=== PATIENT | female | born 1935 | race Caucasian/White ===

== ENCOUNTER 2024-04-04 13:19 | Observation (INO) | payer MEDICARE, SELFPAY ==
[2024-04-04] VITALS (18 sets, daily range): BP systolic 126–149; BP diastolic 67–108; PULSE 59–121; RESP 13–31; TEMP 36.1–36.4; O2SAT 77–98; BMI 19.1
--- NOTE | ~2024-04-04 | CT_ITS ---
EXAMINATION: CT abdomen pelvis wo con DATE: 04/04/2024 14:46 INDICATION: Constipation. Abdominal pain. TECHNIQUE: Computed tomography (CT) of the abdomen and pelvis was performed without intravenous contr ast. Automated exposure control and iterative reconstruction technique were employed. The dose-length product was 481.53 mGy-cm. COMPARISON: None. FINDINGS: The visualized portions of the lung bases demonstrate small pleural effusions and dependent atelectasis. A calcified left lung nodule is consistent with old granulomatous disease. Cardiomegaly is noted. There are coronary artery calcifications. No pericardial effusion. There is mild intrahepa tic biliary duct dilatation, likely secondary to cholecystectomy. Calcifications in the spleen are co nsistent with old granulomatous disease. The pancreas and left adrenal gland are normal. There are dy strophic calcifications of right adrenal gland. Right kidney is normal. There is mild atrophy of left kidney. There is a large volume of stool in the colon with distention of the rectosigmoid. There is wall thickening of the rectosigmoid, consistent with stercoral colitis. The small bowel is normal in caliber. There is calcified atherosclerosis of the aorta and many of the other arteries. There are no pathologically enlarged lymph nodes. There is no free intraperitoneal fluid. There is a total right hip arthroplasty. There are old healed fractures of right superior and inferior pubic rami. There is thoracolumbar levoscoliosis and severe spondylosis. There are changes of posterior fusion procedure a t L4-L5. IMPRESSION: 1. Stercoral colitis. 2. Small pleural effusions. Reviewed, dictated and finalized at location E.
--- NOTE | ~2024-04-04 | XR_ITS ---
EXAMINATION: XR abdomen/kub 1V DATE: 04/06/2024 05:55 INDICATION: Fecal impaction. TECHNIQUE: A supine view of the abdomen on 2 radiographs was obtained. COMPARISON: Abdomen radiograph 05/06/2024, CT abdomen pelvis/ FINDINGS: Stool distends the rectosigmoid. The small bowel is normal in caliber. Surgical clips in th e right upper quadrant are likely from cholecystectomy. There are changes of posterior fusion procedu re in lumbar spine. There is a total right hip arthroplasty. IMPRESSION: 1. Stool distends the rectosigmoid. Reviewed, dictated and finalized at location A.
--- NOTE | ~2024-04-04 | XR_ITS ---
EXAMINATION: XR abdomen/kub 1V DATE: 04/07/2024 10:19 INDICATION: Fecal impaction. TECHNIQUE: A supine view of the abdomen on 2 radiographs was obtained. COMPARISON: Abdomen radiograph 04/06/2024, 04/04/2024 FINDINGS: There are no dilated loops of bowel. There is a small volume of stool in the colon. Surgica l clips in the right upper quadrant are likely from cholecystectomy. There are changes of posterior f usion procedure in lumbar spine. There is a total right hip arthroplasty. IMPRESSION: 1. Nonobstructive bowel gas pattern. Reviewed, dictated and finalized at location A.
--- NOTE | ~2024-04-04 | XR_ITS ---
EXAM: XR abdomen/kub 1V DATE: 04/05/2024 14:52 HISTORY: constipation . COMPARISON: CT abdomen pelvis 04/04/2024. FINDINGS: Clear lung bases. Cholecystectomy clips. The rectum is distended to 7.5 cm by formed stool . Otherwise normal bowel gas pattern. No organomegaly. No abnormal abdominal calcification. Severe sc oliosis. Multilevel thoracic and lumbar degenerative disc disease. Moderate left hip osteoarthritis. Osteopenia. Partially visualized lumbar fusion hardware and right hip arthroplasty hardware IMPRESSION: Fecal impaction. Reviewed, dictated and finalized at location K. IMPRESSION: Fecal impaction.
--- NOTE | 2024-04-04 14:24 | ECG_ITS ---
SEE SCANNED COPY FOR CONFIRMED REPORT MTDD
[2024-04-04 15:24] LABS: Basophils Absolute Auto 0.1 K/mm3 (0.0-0.1); Basophils Percent Auto 0.7 % (0.2-1.2); Eosinophils Absolute Auto 0.1 K/mm3 (0-0.3); Hematocrit 37.7 % (37.0-47.0); Hemoglobin 11.9 g/dL (12.0-15.0); Immature Granulocyte Absolute 0.02 K/mm3 (0.00-0.031); Immature Granulocyte Percent A 0.3 % (0-0.5); Lymphocytes Absolute Auto 1.27 K/mm3 (0.9-3.2); Lymphocytes Percent Auto 18.6 % (18.3-44.2); Mean Corpuscular HGB Conc 31.6 g/dl (32-36); Mean Corpuscular Hemoglobin 33.7 pg (26-34); Mean Corpuscular Volume 106.8 fl (80-100); Mean Platelet Volume 10.8 fl (7.4-10.4); Monocytes Absolute Auto 0.5 K/mm3 (0.1-0.6); Monocytes Percent Auto 7.7 % (2.6-8.5); Neutrophils Absolute Auto 4.9 K/mm3 (1.3-6.7); Neutrophils Percent Auto 71.7 % (45.5-73.1); Platelet Count Result 245 k/mm3 (150-375); Red Blood Count 3.53 M/mm3 (4.2-5.4); Red Cell Distribution Width 14.6 % (11.5-14.5); White Blood Count 6.8 K/mm3 (4.5-10.0)
[2024-04-04 15:39] LABS: Lactic Acid Reflex 2.1 mmol/L (0.7-2.0)
[2024-04-04 15:40] LABS: Alanine Aminotransferase 21 U/L (6-35); Albumin Level 4.1 g/dL (3.5-5.1); Alkaline Phosphatase 60 U/L (38-126); Anion Gap 8 mmol/L (4-12); Aspartate Amino Transferase 39 U/L (14-36); Bilirubin,Total 0.7 mg/dL (0.2-1.3); Blood Urea Nitrogen 31 mg/dL (7-17); Calcium 9.3 mg/dL (8.4-10.2); Carbon Dioxide 25 mmol/L (22-30); Chloride 101 mmol/L (98-107); Estimated CRCL calculation 22 ml/min; Estimated Glomerular Filt Rate 36; Glucose 104 mg/dL (65-110); Lipase 57 U/L (23-300); Platelet Estimate Adequate (Adequate); Poikilocytosis 1+; Potassium 4.7 mmol/L (3.4-5.0); Sodium 134 mmol/L (137-145)
[2024-04-04 15:41] LABS: Ovalocytes 1+
[2024-04-04 15:42] LABS: Schistocytes None Seen
[2024-04-04 16:25] LABS: Appearance Urine Clear (Clear); Bilirubin Urine Negative (Negative); Blood Urine Negative (Negative); Color Urine Yellow (Yellow); Glucose Urine UA Negative (Negative); Ketones Urine Negative (Negative); Leukocyte Esterase Ur Negative LEU/UL (Negative); Nitrate Urine Negative (Negative); Protein Urine Negative (Negative); Specific Grav Ur 1.022 (1.001-1.035); Urobilinogen Urine 0.2 mg/dL (<2.0)
[2024-04-04 16:52] LABS: Add Urine Microscopic? NO
[2024-04-04] MEDS: LACTATED RINGERS 1,000 ML 999 ML IV CONT (17:13)
--- NOTE | 2024-04-04 18:16 | ED.ABDPAIN ---
HPI - Abdominal Pain General Chief Complaint: Abdominal Pain Stated Complaint: abdominal pain, constipation Time Seen by Provider: 04/04/24 14:22 History of Present Illness HPI narrative: Patient having constipation for the last week, doctor has tried laxatives without much improvement, patient was having a lot of abdominal pain so she brought her in today. Related Data Allergies Allergy/AdvReac Type Severity Reaction Status Date / Time iodine Allergy Unknown Verified 03/27/24 13:27 Penicillins Allergy Unknown Verified 03/27/24 13:27 contrast dye Allergy Other Uncoded 03/27/24 13:27 Review of Systems Review of Systems: All systems reviewed & are unremarkable except as noted in HPI and below PMFSH Past Medical History Medical History (Updated 04/04/24 @ 18:21 by Maria De Jesus Danielson MD) Atrial fibrillation CAD (coronary artery disease) Heart failure with preserved ejection fraction HTN (hypertension) Hx of completed stroke Hypothyroidism Inflammatory arthritis Thyroid disorder Family History Family History Father Hypertension Cerebrovascular accident Mother Hypertension Social History Social History (Updated 01/14/24 @ 14:41 by Nancy Vela MA) Smoking status: Unknown if ever smoked Alcohol intake: unknown Substance use: never Do You Feel Safe in your Home?: Yes Lack of Transportation: No Lack of Food: Never True Current Housing: I Have Housing Concerned About Future Housing: No Difficulty Paying Gas/Electric Bills: No Difficulty Paying for Meds: No Currently Unemployed: No Education: Master's Degree or Higher Difficulty w/ Childcare or Family Care: No Living arrangements: with family Gender identity (if verbalized by the patient): Female Sexual Orientation (if Verbalized by the Patient): Straight or Heterosexual Exam Narrative: EXAMINATION OF ORGAN SYSTEMS/BODY AREAS: Constitutional: Vital signs per nursing GENERAL: Smiles at me but winces when I push on her stomach HEAD: Normal with no signs of head trauma. EYES: EOMI, conjunctiva normal ENT: Hearing grossly intact LUNGS: Nonlabored breathing. HEART: [Regular rate and rhythm] ABD: Slightly distended and tender to palpation EXT: Normal range of motion SKIN: [No rashes or lesions.] NEURO: [Alert. No gross focal sensory or strength deficits.] PSYCH: Normal affect Course Vital Signs Vital signs: Vital Signs Temperature 97.0 F L 04/04/24 13:38 Pulse Rate 59 L 04/04/24 13:38 Respiratory Rate 18 04/04/24 13:38 Blood Pressure 132/67 04/04/24 13:38 Pulse Oximetry 95 04/04/24 13:38 Oxygen Delivery Room Air 04/04/24 13:38 Temperature 97.0 F L 04/04/24 13:38 Pulse Rate 59 L 04/04/24 13:38 Respiratory Rate 18 04/04/24 13:38 Blood Pressure 132/67 04/04/24 13:38 Pulse Oximetry 95 04/04/24 13:38 Oxygen Delivery Room Air 04/04/24 13:38 MDM - Abdominal Pain MDM Narrative Medical decision making narrative: Electronic medical record was reviewed. Patient presented to the ED with complaint of [abdominal pain and constipation]. Vitals [were within acceptable limits]. Physical exam revealed [tenderness to palpation of abdomen]. Based on the patient's history and physical exam, my differential includes but is not limited to [constipation, SBO, diverticulitis, appendicitis]. [IV access was established by nursing staff]. CBC, BMP, lipase, LFTs, bilirubin and alk phos were obtained. Labs were pertinent for very minimally elevated lactic acid,. [Decision was made to obtain a CT-abdomen to evaluate for acute abdominal process. CT-abdomen showing stercoral colitis.] I did consult General surgery Dr Fitzpatrick who asked me to start antibiotics (she has allergy to PCN so I ordered ceftriaxone + flagyl) and consult GI, enema is ordered, discussed with Dr. Cheney GI, discussed with hospitalist for admission. Discussed with daughter at
[2024-04-04 18:22] LABS: Reflex Lactic Acid Yes or No Add Lactic
--- NOTE | 2024-04-04 18:25 | PC.NURSE ---
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 Pt's daughter states she tried to give her them at home without success, but daughter in agreement with administration. Pt tolerated fleet enema fairly well, however no rectal tone present and came right back out with scant liquid stool. Pt to go to admission room at this time.
--- NOTE | 2024-04-04 18:35 | ADMGEN ---
This patient, Esperanza Mark, was admitted to Medical Room 345-01. Patient/family oriented to hospital policies and general routines including ID bracelet, bed and alarms, visiting hours, pain management, procedures, bathroom and other care routines, personal items, smoking policy, room service/diet, and visiting hours. Information on how to activate the Rapid Response Team has been discussed. Patient/Family are encouraged to report perceived risks to care and to ask questions if they do not understand what they are told or what they should do.
--- NOTE | 2024-04-04 20:13 | PM.IMHP ---
H&P: HPI History of Present Illness Date/Time: 04/04/24 22:20 Chief Complaint: Constipation Narrative: 88 y/o F presents here with constipation with PMH of AFib, dementia, CAD, HF w/preserved EF, CKD, HTN, CVA (nonverbal), hypothyroidism, and rheumatoid arthritis. Patient presents here for further evaluation of constipation. patient unable to contribute to HPI due to neuro limitations secondary to CVA. Per chart review, daughter reported that patient has been having bowel issues for the past week and half. Patient initially had loose stools but has since transitioned to constipation. Trialed laxative at home without results. Per daughter, has appeared very uncomfortable over the last few days. Patient able to nod that she does have abdominal pain, grimacing with palpation to her abdomen, and guarding on exam. Per chart review, only previous abdominal surgery was a hysterectomy. Initial VS at presentation: 97? F, HR 59, RR 18, 132/67, and 95% on RA. ED workup showed: No leukocytosis, very mild anemia, sodium 134, creatinine 1.4 and GFR 36 (no previous for comparison, history of CKD), UA is unremarkable. CT of the abdomen pelvis showed stercoral colitis and small pleural effusions. Review of Systems Review of Systems: ROS unobtainable: Yes unobtainable due to mental status PMFSH Past Medical History Medical History Atrial fibrillation CAD (coronary artery disease) Chronic pain Dementia Dyslipidemia Eczematous dermatitis Heart failure with preserved ejection fraction HTN (hypertension) Hx of completed stroke Hypothyroidism Inflammatory arthritis Osteoarthritis Stage 3b chronic kidney disease Surgical History Surgical History History of hip replacement History of hysterectomy History of spinal surgery Family History Family History Father Hypertension Cerebrovascular accident Mother Hypertension Social History Social History Smoking status: Unknown if ever smoked Alcohol intake: unknown Substance use: never Substance use type: does not use Do You Feel Safe in your Home?: Yes Lack of Transportation: No Lack of Food: Never True Current Housing: I Have Housing Concerned About Future Housing: No Difficulty Paying Gas/Electric Bills: No Difficulty Paying for Meds: No Currently Unemployed: No Education: Master's Degree or Higher Difficulty w/ Childcare or Family Care: No Living arrangements: with family Gender identity (if verbalized by the patient): Female Sexual Orientation (if Verbalized by the Patient): Straight or Heterosexual Spiritual care concerns: No Meds Home Medications and Allergies Home Medications Medication Instructions Recorded Confirmed Type metoprolol tartrate 75 mg tablet 75 mg PO BID #180 tabs 10/05/23 03/27/24 Rx levothyroxine 150 mcg tablet 150 mcg PO DAILY #90 tabs 11/01/23 03/27/24 Rx lisinopril 5 mg tablet 5 mg PO DAILY #90 tabs 11/15/23 03/27/24 Rx trazodone 100 mg tablet 100 mg PO QHS #90 tabs 11/15/23 03/27/24 Rx triamcinolone acetonide 0.1 % 1 applic topical BID #453.6 grams 11/15/23 03/27/24 Rx topical cream apixaban 2.5 mg tablet (Eliquis) See Rx Instructions .Route 02/11/24 03/27/24 Rx .COMPLEX #180 tabs atorvastatin 40 mg tablet See Rx Instructions .Route 02/28/24 03/27/24 Rx .COMPLEX #90 tabs furosemide 20 mg tablet 20 mg PO QAM #90 tabs 03/15/24 03/27/24 Rx hydrocodone 10 mg-acetaminophen 1 tablet PO QID PRN pain #120 tabs 03/25/24 03/27/24 Rx 325 mg tablet Allergies Allergy/AdvReac Type Severity Reaction Status Date / Time iodine Allergy Unknown Verified 03/27/24 13:27 Penicillins Allergy Unknown Verified 03/27/24 13:27 contrast dye Allergy Other Uncoded 03/27/24 13:27 Vital Signs
[2024-04-04 20:22] LABS: Lactic Acid 1.6 mmol/L (0.7-2.0)
[2024-04-05] MEDS: metroNIDAZOLE 500 MG/ISO 100ML 500 MG/100 ML BAG 100 MG IVPB ×2 (05:23→13:05)
[2024-04-05 06:00] VITALS: BP 138/83; PULSE 74; RESP 16; TEMP 36.2; O2SAT 95
[2024-04-05 06:26] LABS: Basophils Absolute Auto 0.1 K/mm3 (0.0-0.1); Basophils Percent Auto 0.9 % (0.2-1.2); Eosinophils Absolute Auto 0.1 K/mm3 (0-0.3); Hematocrit 38.5 % (37.0-47.0); Hemoglobin 12.3 g/dL (12.0-15.0); Immature Granulocyte Absolute 0.02 K/mm3 (0.00-0.031); Immature Granulocyte Percent A 0.3 % (0-0.5); Lymphocytes Absolute Auto 2.04 K/mm3 (0.9-3.2); Lymphocytes Percent Auto 26.1 % (18.3-44.2); Mean Corpuscular HGB Conc 31.9 g/dl (32-36); Mean Corpuscular Volume 106.4 fl (80-100); Mean Platelet Volume 10.7 fl (7.4-10.4); Monocytes Absolute Auto 0.6 K/mm3 (0.1-0.6); Monocytes Percent Auto 7.7 % (2.6-8.5); Platelet Count Result 259 k/mm3 (150-375); Red Blood Count 3.62 M/mm3 (4.2-5.4); Red Cell Distribution Width 14.6 % (11.5-14.5); White Blood Count 7.8 K/mm3 (4.5-10.0)
[2024-04-05 06:32] LABS: Alanine Aminotransferase 22 U/L (6-35); Alkaline Phosphatase 70 U/L (38-126); Anion Gap 7 mmol/L (4-12); Aspartate Amino Transferase 38 U/L (14-36); Bilirubin,Total 0.8 mg/dL (0.2-1.3); Blood Urea Nitrogen 24 mg/dL (7-17); Calcium 9.6 mg/dL (8.4-10.2); Carbon Dioxide 26 mmol/L (22-30); Chloride 103 mmol/L (98-107); Estimated CRCL calculation 24 ml/min; Estimated Glomerular Filt Rate 42; Glucose 92 mg/dL (65-110); Magnesium 2.1 mg/dL (1.6-2.3); Phosphorus 3.6 mg/dL (2.5-4.5); Potassium 4.4 mmol/L (3.4-5.0); Sodium 136 mmol/L (137-145)
--- NOTE | 2024-04-05 12:03 | PM.IMPN ---
Progress Note: A&P Assessment and Plan (1) Stercoral colitis: Code(s): K52.89 - Other specified noninfective gastroenteritis and colitis Status: Acute Assessment and Plan: 04/04/24: - did not meet SIRS criteria, however lactic is 2.1 -> 1.6. suspect elevation due to dehydration. - CT abd/pelvis: 1. Stercoral colitis. 2. Small pleural effusions. - General Surgery consulted, awaiting recs - GI consulted, awaiting recs - started on ceftriaxone and metronidazole on 04/04 - rehydrated 1L bolus of LR, continue as 75 mL/hr of LR x1L - enema attempted in ED, poor rectal tone. reattempting on floor - trend labs 04/05/24: discontinue Rocephin and Flagyl as there is no clinical need KUB showing fecal impaction, will give another soap suds enema General surgery and GI consulted (2) Stage 3b chronic kidney disease: Code(s): N18.32 - Chronic kidney disease, stage 3b Status: Acute Assessment and Plan: 04/04/24: - creatinine 1.4 - GFR 36 - hx of CKD stage IIIB - trend renal function - trend electrolytes, correct as needed 04/05/24: Creatinine down to 1.2 Continue to trend Will hold off on Lasix and lisinopril for now (3) Heart failure with preserved ejection fraction: Code(s): I50.30 - Unspecified diastolic (congestive) heart failure Status: Acute Assessment and Plan: 04/04/24: - no echo on file - daily weights - monitor I&Os - trend renal function 04/05/24: Obtain echo Strict I&O Will hold off on Lasix due to elevated creatinine Continue metoprolol (4) HTN (hypertension): Code(s): I10 - Essential (primary) hypertension Status: Acute Assessment and Plan: 04/04/24: - chronic, currently 149/99 - awaiting med rec - monitor 04/05/24: Blood pressure ranging 126/108 to 138/83 Continue to hold lisinopril due to creatinine elevation Continue metoprolol (5) CAD (coronary artery disease): Qualifiers: Coronary Disease-Associated Artery/Lesion type: unspecified vessel or lesion type Code(s): I25.10 - Atherosclerotic heart disease of in[place] coronary artery without angina pectoris Status: Acute Assessment and Plan: 04/05/24: Continue atorvastatin (6) Hypothyroidism: Code(s): E03.9 - Hypothyroidism, unspecified Status: Acute Assessment and Plan: 04/05/24: Continue Synthroid Time Spent With Patient Time with patient: Greater than 35 minutes Subjective Date/time seen: 04/05/24 12:04 Interval history: This is an 88-year-old female presented to the hospital on 04/04/2024 with complaints constipation for a week to a week and a half. Workup in the hospital included an abdomen pelvis CT which showed Stercoral colitis and a small pleural effusion. Initial labs showed a normal white blood cell count of 6.8, hemoglobin 11.9, sodium 134, creatinine 1.4, EGFR 36, lactic acid 2.1> 1.6, AST 39, lipase 57. A UA was obtained and was negative for bacteria. Patient was given 1 L of LR and started on Flagyl and Rocephin. GI and General surgery was consulted. She was made NPO status. On examination today patient is alert to voice, lying in the bed. Patient is unable to contribute to her symptoms due to altered mental status at baseline. Labs today showed a sodium of 136, creatinine 1.2, EGFR 42, AST 38, otherwise unremarkable. Currently has had 5 BM's since admission. We did a KUB which still shows fecal impaction that is now to the rectum. I ordered another soap suds enema to assist her. The KUB does not show obstruction or an ileus. Spoke with daughter about bowel prep at home. Review of Systems Review of Systems: All systems reviewed & are unremarkable except as noted in HPI and below ROS unobtainable: Yes unobtainable due to mental status Constitutional: Constitutional: Reports as per HPI and Reports no additional constitutional complaints Eyes: Eyes: Reports as per HPI and Reports no add
[2024-04-05] MEDS: HYDROcodone/acetaminophen (*CRX) 10-325 MG TABLET 1 TAB PO ×2 (12:22→19:00)
[2024-04-05 13:19] VITALS: PULSE 80
[2024-04-05] MEDS: METOPROLOL TARTRATE 25 MG TABLET 75 MG PO (13:19)
[2024-04-05] MEDS: LEVOTHYROXINE SODIUM 150 MCG TABLET PO (13:19)
[2024-04-05] MEDS: ATORVASTATIN 40 MG TABLET PO (13:20)
[2024-04-05 14:00] VITALS: BP 136/96; PULSE 88; RESP 22; TEMP 36.6; O2SAT 96
--- NOTE | 2024-04-05 14:39 | WPDGICN ---
Assessment and Plan Assessment and plan (1) Stercoral colitis: Code(s): K52.89 - Other specified noninfective gastroenteritis and colitis Status: Acute Assessment and Plan: treated medically with enema/laxative GI exam is benign, no pain it is ok to discontinue antibiotics ok to advance diet, if she does ok then ok to discharge with bowel regimen (2) Stage 3b chronic kidney disease: Code(s): N18.32 - Chronic kidney disease, stage 3b Status: Acute Assessment and Plan: stable, ? near baseline (3) Dementia: Code(s): F03.90 - Unspecified dementia, unspecified severity, without behavioral disturbance, psychotic disturbance, mood disturbance, and anxiety Status: Acute (4) HTN (hypertension): Code(s): I10 - Essential (primary) hypertension Status: Acute GI Consult Note Consult date/time: 04/05/24 14:39 Reason for consult: constipation, stercoral colitis HPI: Esperanza Mark is a 88 year old female with past medical history of AFib, dementia, CAD, HF w/preserved EF, CKD stg 3, HTN, CVA (baseline confused). History obtained from records. She was brought here with more constipation than usual. Per history she initially had loose stools but has since transitioned to constipation. Trialed laxative at home without results.? Daughter mentioned that she was uncomfortable over the last few days.? ED workup no leukocytosis, sodium 134, creatinine 1.4, UA is unremarkable.? CT of the abdomen pelvis showed stercoral colitis and small pleural effusions. Given enema/laxatives. She is quite comfortable during exam, she already had loose stools. Review of Systems Review of Systems: ROS unobtainable: Yes unobtainable due to mental status [facility] Past Medical History Medical History (Updated 04/05/24 @ 14:43 by Brandon Serra MD) Atrial fibrillation CAD (coronary artery disease) Chronic pain Dementia Dyslipidemia Eczematous dermatitis Heart failure with preserved ejection fraction HTN (hypertension) Hx of completed stroke Hypothyroidism Inflammatory arthritis Osteoarthritis Stage 3b chronic kidney disease Surgical History Surgical History History of hip replacement History of hysterectomy History of spinal surgery Family History Family History Father Hypertension Cerebrovascular accident Mother Hypertension Social History Social History Smoking status: Unknown if ever smoked Alcohol intake: unknown Substance use: never Substance use type: does not use Do You Feel Safe in your Home?: Yes Lack of Transportation: No Lack of Food: Never True Current Housing: I Have Housing Concerned About Future Housing: No Difficulty Paying Gas/Electric Bills: No Difficulty Paying for Meds: No Currently Unemployed: No Education: Master's Degree or Higher Difficulty w/ Childcare or Family Care: No Living arrangements: with family Gender identity (if verbalized by the patient): Female Sexual Orientation (if Verbalized by the Patient): Straight or Heterosexual Spiritual care concerns: No Meds Home Medications and Allergies Home Medications Medication Instructions Recorded Confirmed Type metoprolol tartrate 75 mg tablet 75 mg PO BID #180 tabs 10/05/23 04/05/24 Rx levothyroxine 150 mcg tablet 150 mcg PO DAILY #90 tabs 11/01/23 04/05/24 Rx lisinopril 5 mg tablet 5 mg PO DAILY #90 tabs 11/15/23 04/05/24 Rx trazodone 100 mg tablet 100 mg PO QHS #90 tabs 11/15/23 04/05/24 Rx furosemide 20 mg tablet 20 mg PO QAM #90 tabs 03/15/24 04/05/24 Rx hydrocodone 10 mg-acetaminophen 1 tablet PO QID PRN pain #120 tabs 03/25/24 04/05/24 Rx 325 mg tablet apixaban 2.5 mg tablet (Eliquis) 2.5 mg PO BID 04/05/24 04/05/24 History atorvastatin 40 mg tablet 40 mg PO DAILY 04/05/2404/05
--- NOTE | 2024-04-05 14:53 | PM.DS ---
DS: Admitting Diagnosis Discharge Date 04/05/24 Admitting Diagnosis Stercoral colitis Stage IIIB chronic kidney disease Heart failure with preserved ejection fraction Hypertension DS: Summary Hospital Course Reason for hospitalization: Stercoral colitis Stage IIIB chronic kidney disease Heart failure with preserved ejection fraction Hypertension Hospital Course: This is an 88-year-old female presented to the hospital on 04/04/2024 with complaints constipation for a week to a week and a half.? Workup in the hospital included an abdomen pelvis CT which showed Stercoral colitis and a small pleural effusion.? Initial labs showed a normal white blood cell count of 6.8, hemoglobin 11.9, sodium 134, creatinine 1.4, EGFR 36, lactic acid 2.1> 1.6, AST 39, lipase 57.? A UA was obtained and was negative for bacteria.? Patient was given 1 L of LR and started on Flagyl and Rocephin.? GI and General surgery was consulted.? She was made NPO status. On examination today patient is alert to voice, lying in the bed. Patient is unable to contribute to her symptoms due to altered mental status at baseline. Labs today showed a sodium of 136, creatinine 1.2, EGFR 42, AST 38, otherwise unremarkable. Currently has had 5 BM's since admission. Spoke with daughter about plan of care and she agrees with discharge planning. Patient will need to take MiraLax daily with full glass of water and continue stool softener. Patient is stable for discharge at this time. Final diagnosis: Stercoral colitis without obstruction Status at Discharge Cognitive/behavioral status at discharge: Alert to voice oriented to self Functional status at discharge: wheelchair bound Overall status at discharge: patient is progressing back to baseline Time Spent with Patient Time attestation: Total time spent providing and/or coordinating discharge services: Time spent: Greater than 30 minutes Exam Narrative: General: In no acute distress, well nourished Head: atraumatic, no encephalopathy Eyes: EOMI, PERRLA, sclera clear ENT: moist mucous membranes, nasal passages clear Neck: supple, no JVD, no adenopathy, trachea midline Cardiac: Normal S1 and S2. No murmur, gallops or friction rubs, peripheral pulses intact. Respiratory: Lungs clear to auscultation, no adventitious lung sounds, currently on room air Gastrointestinal: soft, non-distended, non-tender, normoactive bowel sounds. : voiding without difficulty. Extremities: moves all extremities well, no edema Skin: clean, dry, intact. No wounds or lesions. Neuro: Alert to voice and oriented to self, cranial nerves intact, no neuro deficits. Psych: normal mood, normal affect, interactive DS: Data Data Completed and Pending Completed studies during hospitalization: CT of the abdomen pelvis Pending studies at discharge: None Labs on day of discharge: Labs from last 24 hours 04/05/24 04/04/24 04/04/24 06:05 20:00 15:37 WBC 7.8 RBC 3.62 L Hgb 12.3 Hct 38.5 MCV 106.4 H MCH 34.0 MCHC 31.9 L RDW 14.6 H Plt Count 259 MPV 10.7 H Immature Gran % (Auto) 0.3 Neut % (Auto) 64.0 Lymph % (Auto) 26.1 Forrest % (Auto) 7.7 Eos % (Auto) 1.0 Baso % (Auto) 0.9 Lymph # (Auto) 2.04 Forrest # (Auto) 0.6 Eos # (Auto) 0.1 Baso # (Auto) 0.1 Abs Immat Gran (auto) 0.02 Absolute Neuts (auto) 5.0 Absolute Nucleated RBC 0.000 Nucleated RBC % 0.0 Platelet Estimate Poikilocytosis Ovalocytes Schistocytes Sodium 136 L Potassium 4.4 Chloride 103 Carbon Dioxide 26 Anion Gap 7 BUN 24 H Creatinine 1.20 H Estim Creat Clear Calc 24 Estimated GFR 42 L Glucose 92 Lactic Acid 1.6 Calcium 9.6 Phosphorus 3.6 Magnesium 2.1 Total Bilirubin 0.8 AST 38 H ALT 22 Alkaline Phosphatase 70 Total Protein 7.0 Albumin 4.0 Lipase Urine Color Yellow Urine Appearance Clear Urine pH 5.0 Ur Specific Grav
--- NOTE | 2024-04-05 15:32 | WPDCN ---
Assessment and Plan Assessment and plan (1) Stercoral colitis: Code(s): K52.89 - Other specified noninfective gastroenteritis and colitis Status: Acute Assessment and Plan: Patient appeared to be obstipated and had a mild case of stercoral colitis. She has resolved the obstipation now with enemas. She has had multiple bowel movements now and has no abdominal pain whatsoever. White blood cell count remains normal. Would recommend that the patient be placed on a regular stool regimen to include good hydration, stool softeners, increase fiber intake, and MiraLax or some other laxative as needed. No need for surgical intervention. HPI Data of Consult Date/Time: 04/05/24 15:32 Requesting Physician: Macey Gan MD Primary Care Provider: Rhianna Duckworth APRN Consult Narrative Reason for consult: Abdominal pain and abnormal CT scan showing stercoral colitis Narrative: Esperanza Mark is a 88 year old female who uses chronic pain medications home who came to the emergency room having a lower abdominal pain. Seems to have been obstipated for quite some time. White blood count normal. He can oppose showed large stool ball and information of the colon suggestive of stercoral colitis. No free air seen. Evidence of diverticulitis. Since last evening the patient has had some enemas and has been having multiple bowel movements. She now has no abdominal pain or pelvic pain. White blood count remains normal. She has had multiple bowel movements now. Diet has been advanced. Review of Systems Review of Systems: The remainder of the review of systems to include constitutional, HEENT, cardiovascular, respiratory, GI, , integumentary, musculoskeletal, endocrine, immunologic, hematologic, psychiatric, and neurologic are all negative except for which is mentioned above in the HPI. [facility] Past Medical History Medical History Atrial fibrillation CAD (coronary artery disease) Chronic pain Dementia Dyslipidemia Eczematous dermatitis Heart failure with preserved ejection fraction HTN (hypertension) Hx of completed stroke Hypothyroidism Inflammatory arthritis Osteoarthritis Stage 3b chronic kidney disease Surgical History Surgical History History of hip replacement History of hysterectomy History of spinal surgery Family History Family History Father Hypertension Cerebrovascular accident Mother Hypertension Social History Social History Smoking status: Unknown if ever smoked Alcohol intake: unknown Substance use: never Substance use type: does not use Do You Feel Safe in your Home?: Yes Lack of Transportation: No Lack of Food: Never True Current Housing: I Have Housing Concerned About Future Housing: No Difficulty Paying Gas/Electric Bills: No Difficulty Paying for Meds: No Currently Unemployed: No Education: Master's Degree or Higher Difficulty w/ Childcare or Family Care: No Living arrangements: with family Gender identity (if verbalized by the patient): Female Sexual Orientation (if Verbalized by the Patient): Straight or Heterosexual Spiritual care concerns: No Meds Home Medications and Allergies Home Medications Medication Instructions Recorded Confirmed Type metoprolol tartrate 75 mg tablet 75 mg PO BID #180 tabs 10/05/23 04/05/24 Rx levothyroxine 150 mcg tablet 150 mcg PO DAILY #90 tabs 11/01/23 04/05/24 Rx lisinopril 5 mg tablet 5 mg PO DAILY #90 tabs 11/15/23 04/05/24 Rx trazodone 100 mg tablet 100 mg PO QHS #90 tabs 11/15/23 04/05/24 Rx furosemide 20 mg tablet 20 mg PO QAM #90 tabs 03/15/24 04/05/24 Rx hydrocodone 10 mg-acetaminophen 1 tablet PO QID PRN pain #120 tabs 03/25/24 04/05/24 Rx 325 mg tablet apixaban 2.5 mg table
[2024-04-05] MEDS: MAGNESIUM CITRATE 300 ML BTL 150 ML PO (18:51)
[2024-04-05 22:00] VITALS: BP 130/96; PULSE 120; RESP 21; TEMP 36.3; O2SAT 100
[2024-04-05] MEDS: traZODone HCL 50 MG TABLET 100 MG PO (22:01)
[2024-04-06] MEDS: HYDROcodone/acetaminophen (*CRX) 10-325 MG TABLET 1 TAB PO (02:35)
[2024-04-06] MEDS: LEVOTHYROXINE SODIUM 150 MCG TABLET PO (05:47)
[2024-04-06 06:00] VITALS: BP 162/96; PULSE 74; RESP 16; TEMP 36.2; O2SAT 94
[2024-04-06 06:06] LABS: Basophils Absolute Auto 0.1 K/mm3 (0.0-0.1); Basophils Percent Auto 0.8 % (0.2-1.2); Eosinophils Absolute Auto 0.1 K/mm3 (0-0.3); Eosinophils Percent Auto 0.5 % (0-4.4); Hematocrit 36.2 % (37.0-47.0); Hemoglobin 11.5 g/dL (12.0-15.0); Immature Granulocyte Absolute 0.05 K/mm3 (0.00-0.031); Immature Granulocyte Percent A 0.5 % (0-0.5); Lymphocytes Absolute Auto 1.76 K/mm3 (0.9-3.2); Mean Corpuscular HGB Conc 31.8 g/dl (32-36); Mean Corpuscular Hemoglobin 33.4 pg (26-34); Mean Corpuscular Volume 105.2 fl (80-100); Monocytes Absolute Auto 0.7 K/mm3 (0.1-0.6); Neutrophils Absolute Auto 7.2 K/mm3 (1.3-6.7); Neutrophils Percent Auto 73.2 % (45.5-73.1); Platelet Count Result 254 k/mm3 (150-375); Red Blood Count 3.44 M/mm3 (4.2-5.4); Red Cell Distribution Width 14.7 % (11.5-14.5); White Blood Count 9.8 K/mm3 (4.5-10.0)
[2024-04-06 06:31] LABS: Alanine Aminotransferase 22 U/L (6-35); Albumin Level 3.9 g/dL (3.5-5.1); Alkaline Phosphatase 74 U/L (38-126); Anion Gap 8 mmol/L (4-12); Aspartate Amino Transferase 42 U/L (14-36); Bilirubin,Total 1.1 mg/dL (0.2-1.3); Blood Urea Nitrogen 24 mg/dL (7-17); Calcium 9.4 mg/dL (8.4-10.2); Carbon Dioxide 26 mmol/L (22-30); Chloride 101 mmol/L (98-107); Estimated CRCL calculation 27 ml/min; Estimated Glomerular Filt Rate 47; Glucose 108 mg/dL (65-110); Potassium 3.5 mmol/L (3.4-5.0); Sodium 135 mmol/L (137-145)
[2024-04-06 06:49] LABS: Platelet Estimate Adequate (Adequate)
[2024-04-06 06:50] LABS: Anisocytosis 1+; Ovalocytes 1+; Schistocytes None Seen
--- NOTE | 2024-04-06 08:34 | P.PNIM_ITS ---
Progress Note: A&P Assessment and Plan (1) Stercoral colitis: Code(s): K52.89 - Other specified noninfective gastroenteritis and colitis Status: Acute Assessment and Plan: 04/04/24: - did not meet SIRS criteria, however lactic is 2.1 -> 1.6. suspect elevation due to dehydration. - CT abd/pelvis: 1. Stercoral colitis. 2. Small pleural effusions. - General Surgery consulted, awaiting recs - GI consulted, awaiting recs - started on ceftriaxone and metronidazole on 04/04 - rehydrated 1L bolus of LR, continue as 75 mL/hr of LR x1L - enema attempted in ED, poor rectal tone. reattempting on floor - trend labs 04/05/24: * discontinue Rocephin and Flagyl as there is no clinical need * KUB showing fecal impaction, will give another soap suds enema * General surgery and GI consulted 04/06/24: * received soap suds enema and mg citrate * assess bowel movements today * added miralax daily and senna * Lactulose enema and attempted digital disimpaction with moderate response * Oral lactulose ordered (2) Stage 3b chronic kidney disease: Code(s): N18.32 - Chronic kidney disease, stage 3b Status: Acute Assessment and Plan: 04/04/24: - creatinine 1.4 - GFR 36 - hx of CKD stage IIIB - trend renal function - trend electrolytes, correct as needed 04/05/24: * Creatinine down to 1.2 * Continue to trend * Will hold off on Lasix and lisinopril for now 04/06: * Cr 1.10 downtrending (3) Heart failure with preserved ejection fraction: Code(s): I50.30 - Unspecified diastolic (congestive) heart failure Status: Acute Assessment and Plan: 04/04/24: - no echo on file - daily weights - monitor I&Os - trend renal function 04/05/24: * Obtain echo * Strict I&O * Will hold off on Lasix due to elevated creatinine * Continue metoprolol 04/06: * ECHO pending * HR 120's; 130-160/96 (4) HTN (hypertension): Code(s): I10 - Essential (primary) hypertension Status: Acute Assessment and Plan: 04/04/24: - chronic, currently 149/99 - awaiting med rec - monitor 04/05/24: * Blood pressure ranging 126/108 to 138/83 * Continue to hold lisinopril due to creatinine elevation * Continue metoprolol 04/06: * Elevated blood pressures 130-160/90's * HR 70's (5) CAD (coronary artery disease): Qualifiers: Coronary Disease-Associated Artery/Lesion type: unspecified vessel or lesion type Code(s): I25.10 - Atherosclerotic heart disease of [place] coronary artery without angina pectoris Status: Acute Assessment and Plan: 04/05/24: * Continue atorvastatin (6) Hypothyroidism: Code(s): E03.9 - Hypothyroidism, unspecified Status: Acute Assessment and Plan: 04/05/24: * Continue Synthroid Subjective Date/time seen: 04/06/24 08:34 Interval history: This is an 88-year-old female presented to the hospital on 04/04/2024 with complaints constipation for a week to a week and a half. Workup in the hospital included an abdomen pelvis CT which showed Stercoral colitis and a small pleural effusion. Initial labs showed a normal white blood cell count of 6.8, hemoglobin 11.9, sodium 134, creatinine 1.4, EGFR 36, lactic acid 2.1> 1.6, AST 39, lipase 57. A UA was obtained and was negative for bacteria. Patient was given 1 L of LR and started on Flagyl and Rocephin. GI and General surgery was consulted. She was made NPO status. On exam
--- NOTE | 2024-04-06 08:34 | PM.IMPN ---
Progress Note: A&P Assessment and Plan (1) Stercoral colitis: Code(s): K52.89 - Other specified noninfective gastroenteritis and colitis Status: Acute Assessment and Plan: 04/04/24: - did not meet SIRS criteria, however lactic is 2.1 -> 1.6. suspect elevation due to dehydration. - CT abd/pelvis: 1. Stercoral colitis. 2. Small pleural effusions. - General Surgery consulted, awaiting recs - GI consulted, awaiting recs - started on ceftriaxone and metronidazole on 04/04 - rehydrated 1L bolus of LR, continue as 75 mL/hr of LR x1L - enema attempted in ED, poor rectal tone. reattempting on floor - trend labs 04/05/24: discontinue Rocephin and Flagyl as there is no clinical need KUB showing fecal impaction, will give another soap suds enema General surgery and GI consulted 04/06/24: received soap suds enema and mg citrate assess bowel movements today added miralax daily and senna Lactulose enema and attempted digital disimpaction with moderate response Oral lactulose ordered (2) Stage 3b chronic kidney disease: Code(s): N18.32 - Chronic kidney disease, stage 3b Status: Acute Assessment and Plan: 04/04/24: - creatinine 1.4 - GFR 36 - hx of CKD stage IIIB - trend renal function - trend electrolytes, correct as needed 04/05/24: Creatinine down to 1.2 Continue to trend Will hold off on Lasix and lisinopril for now 04/06: Cr 1.10 downtrending (3) Heart failure with preserved ejection fraction: Code(s): I50.30 - Unspecified diastolic (congestive) heart failure Status: Acute Assessment and Plan: 04/04/24: - no echo on file - daily weights - monitor I&Os - trend renal function 04/05/24: Obtain echo Strict I&O Will hold off on Lasix due to elevated creatinine Continue metoprolol 04/06: ECHO pending HR 120's; 130-160/96 (4) HTN (hypertension): Code(s): I10 - Essential (primary) hypertension Status: Acute Assessment and Plan: 04/04/24: - chronic, currently 149/99 - awaiting med rec - monitor 04/05/24: Blood pressure ranging 126/108 to 138/83 Continue to hold lisinopril due to creatinine elevation Continue metoprolol 04/06: Elevated blood pressures 130-160/90's HR 70's (5) CAD (coronary artery disease): Qualifiers: Coronary Disease-Associated Artery/Lesion type: unspecified vessel or lesion type Code(s): I25.10 - Atherosclerotic heart disease of [place] coronary artery without angina pectoris Status: Acute Assessment and Plan: 04/05/24: Continue atorvastatin (6) Hypothyroidism: Code(s): E03.9 - Hypothyroidism, unspecified Status: Acute Assessment and Plan: 04/05/24: Continue Synthroid Subjective Date/time seen: 04/06/24 08:34 Interval history: This is an 88-year-old female presented to the hospital on 04/04/2024 with complaints constipation for a week to a week and a half. Workup in the hospital included an abdomen pelvis CT which showed Stercoral colitis and a small pleural effusion. Initial labs showed a normal white blood cell count of 6.8, hemoglobin 11.9, sodium 134, creatinine 1.4, EGFR 36, lactic acid 2.1> 1.6, AST 39, lipase 57. A UA was obtained and was negative for bacteria. Patient was given 1 L of LR and started on Flagyl and Rocephin. GI and General surgery was consulted. She was made NPO status. On examination today patient is alert to voice, lying in the bed. Patient is unable to contribute to her symptoms due to altered mental status at baseline. Labs today showed a sodium of 136, creatinine 1.2, EGFR 42, AST 38, otherwise unremarkable. Currently has had 5 BM's since admission. We did a KUB which still shows fecal impaction that is now to the rectum. I ordered another soap suds enema to assist her. The KUB does not show obstruction or an ileus. Spoke with daughter about bowel prep at home. 04/06: Nurse and I attempte
[2024-04-06] MEDS: ATORVASTATIN 40 MG TABLET PO (09:54)
[2024-04-06] MEDS: polyethylene glycoL 3350 17 GM POWD.PACK PO (09:54)
[2024-04-06] MEDS: LACTULOSE ENEMA 200 GM/1,000 ML ENEMA RECTAL (13:30)
[2024-04-06 14:00] VITALS: BP 146/99; PULSE 81; RESP 18; TEMP 36.3; O2SAT 100
[2024-04-06] MEDS: LACTULOSE 20 GM/30 ML UDC PO (15:57)
[2024-04-06] MEDS: COD LIVER OIL/ZINC OXIDE OINT 30 GM 1 APPLIC TOPICAL (17:18)
[2024-04-06 20:00] VITALS: PULSE 81; RESP 18; O2SAT 100
[2024-04-06] MEDS: SENNA/DOCUSATE SODIUM TABLET 1 TAB PO (20:41)
[2024-04-06] MEDS: traZODone HCL 50 MG TABLET 100 MG PO (20:41)
[2024-04-06 22:06] VITALS: BP 127/78; PULSE 104; RESP 18; TEMP 36.6; O2SAT 97
[2024-04-07 06:00] VITALS: PULSE 81; RESP 20; TEMP 36.3; O2SAT 94
[2024-04-07] MEDS: LEVOTHYROXINE SODIUM 150 MCG TABLET PO (06:21)
[2024-04-07 07:26] LABS: Basophils Absolute Auto 0.1 K/mm3 (0.0-0.1); Basophils Percent Auto 0.9 % (0.2-1.2); Eosinophils Absolute Auto 0.2 K/mm3 (0-0.3); Hematocrit 37.6 % (37.0-47.0); Hemoglobin 12.1 g/dL (12.0-15.0); Immature Granulocyte Absolute 0.03 K/mm3 (0.00-0.031); Immature Granulocyte Percent A 0.5 % (0-0.5); Lymphocytes Absolute Auto 1.98 K/mm3 (0.9-3.2); Lymphocytes Percent Auto 29.8 % (18.3-44.2); Mean Corpuscular HGB Conc 32.2 g/dl (32-36); Mean Corpuscular Hemoglobin 34.4 pg (26-34); Mean Corpuscular Volume 106.8 fl (80-100); Mean Platelet Volume 10.5 fl (7.4-10.4); Monocytes Absolute Auto 0.6 K/mm3 (0.1-0.6); Monocytes Percent Auto 8.9 % (2.6-8.5); Neutrophils Absolute Auto 3.8 K/mm3 (1.3-6.7); Neutrophils Percent Auto 56.9 % (45.5-73.1); Platelet Count Result 217 k/mm3 (150-375); Red Blood Count 3.52 M/mm3 (4.2-5.4); Red Cell Distribution Width 14.7 % (11.5-14.5); White Blood Count 6.7 K/mm3 (4.5-10.0)
[2024-04-07 07:38] LABS: Alanine Aminotransferase 19 U/L (6-35); Albumin Level 3.5 g/dL (3.5-5.1); Alkaline Phosphatase 64 U/L (38-126); Anion Gap 6 mmol/L (4-12); Aspartate Amino Transferase 39 U/L (14-36); Blood Urea Nitrogen 22 mg/dL (7-17); Carbon Dioxide 23 mmol/L (22-30); Chloride 104 mmol/L (98-107); Estimated CRCL calculation 26 ml/min; Estimated Glomerular Filt Rate 47; Glucose 82 mg/dL (65-110); Sodium 133 mmol/L (137-145)
[2024-04-07 08:00] LABS: Anisocytosis 1+; Ovalocytes 1+; Platelet Estimate Adequate (Adequate); Schistocytes None Seen
[2024-04-07] MEDS: LACTULOSE 20 GM/30 ML UDC PO (08:34)
[2024-04-07] MEDS: ATORVASTATIN 40 MG TABLET PO (08:34)
[2024-04-07] MEDS: polyethylene glycoL 3350 17 GM POWD.PACK PO (10:09)
--- NOTE | 2024-04-07 11:13 | P.DS_ITS ---
DS: Admitting Diagnosis Discharge Date 04/07 Admitting Diagnosis Constipation DS: Discharge Diagnosis Discharge Diagnosis (1) Stercoral colitis: Code(s): K52.89 - Other specified noninfective gastroenteritis and colitis Status: Acute Assessment and Plan: 04/04/24: - did not meet SIRS criteria, however lactic is 2.1 -> 1.6. suspect elevation due to dehydration. - CT abd/pelvis: 1. Stercoral colitis. 2. Small pleural effusions. - General Surgery consulted, awaiting recs - GI consulted, awaiting recs - started on ceftriaxone and metronidazole on 04/04 - rehydrated 1L bolus of LR, continue as 75 mL/hr of LR x1L - enema attempted in ED, poor rectal tone. reattempting on floor - trend labs 04/05/24: * discontinue Rocephin and Flagyl as there is no clinical need * KUB showing fecal impaction, will give another soap suds enema * General surgery and GI consulted 04/06/24: * received soap suds enema and mg citrate * assess bowel movements today * added miralax daily and senna (2) Stage 3b chronic kidney disease: Code(s): N18.32 - Chronic kidney disease, stage 3b Status: Acute Assessment and Plan: 04/04/24: - creatinine 1.4 - GFR 36 - hx of CKD stage IIIB - trend renal function - trend electrolytes, correct as needed 04/05/24: * Creatinine down to 1.2 * Continue to trend * Will hold off on Lasix and lisinopril for now 04/06: * Cr 1.10 downtrending (3) Heart failure with preserved ejection fraction: Code(s): I50.30 - Unspecified diastolic (congestive) heart failure Status: Acute Assessment and Plan: 04/04/24: - no echo on file - daily weights - monitor I&Os - trend renal function 04/05/24: * Obtain echo * Strict I&O * Will hold off on Lasix due to elevated creatinine * Continue metoprolol 04/06: * ECHO pending * HR 120's; 130-160/96 (4) HTN (hypertension): Code(s): I10 - Essential (primary) hypertension Status: Acute Assessment and Plan: 04/04/24: - chronic, currently 149/99 - awaiting med rec - monitor 04/05/24: * Blood pressure ranging 126/108 to 138/83 * Continue to hold lisinopril due to creatinine elevation * Continue metoprolol 04/06: * Elevated blood pressures 130-160/90's * HR 70's (5) CAD (coronary artery disease): Qualifiers: Coronary Disease-Associated Artery/Lesion type: unspecified vessel or lesion type Code(s): I25.10 - Atherosclerotic heart disease of [place] coronary artery without angina pectoris Status: Acute Assessment and Plan: 04/05/24: * Continue atorvastatin (6) Hypothyroidism: Code(s): E03.9 - Hypothyroidism, unspecified Status: Acute Assessment and Plan: 04/05/24: * Continue Synthroid DS: Summary Hospital Course Reason for hospitalization: constipation Hospital Course: This is an 88-year-old female presented to the hospital on 04/04/2024 with complaints constipation for a week to a week and a half.? Workup in the hospital included an abdomen pelvis CT which showed Stercoral colitis and a small pleural effusion.? Initial labs showed a normal white blood cell count of 6.8, hemoglobin 11.9, sodium 134, creatinine 1.4, EGFR 36, lactic acid 2.1> 1.6, AST 39, lipase 57.? A UA was obtained and was negative for bacteria.? Patient was given 1 L of LR and started on Flagyl and Rocephin.? GI and General surgery was consulted.? She was made [employer]
--- NOTE | 2024-04-07 11:13 | PM.DS ---
DS: Admitting Diagnosis Discharge Date 04/07 Admitting Diagnosis Constipation DS: Discharge Diagnosis Discharge Diagnosis (1) Stercoral colitis: Code(s): K52.89 - Other specified noninfective gastroenteritis and colitis Status: Acute Assessment and Plan: 04/04/24: - did not meet SIRS criteria, however lactic is 2.1 -> 1.6. suspect elevation due to dehydration. - CT abd/pelvis: 1. Stercoral colitis. 2. Small pleural effusions. - General Surgery consulted, awaiting recs - GI consulted, awaiting recs - started on ceftriaxone and metronidazole on 04/04 - rehydrated 1L bolus of LR, continue as 75 mL/hr of LR x1L - enema attempted in ED, poor rectal tone. reattempting on floor - trend labs 04/05/24: discontinue Rocephin and Flagyl as there is no clinical need KUB showing fecal impaction, will give another soap suds enema General surgery and GI consulted 04/06/24: received soap suds enema and mg citrate assess bowel movements today added miralax daily and senna (2) Stage 3b chronic kidney disease: Code(s): N18.32 - Chronic kidney disease, stage 3b Status: Acute Assessment and Plan: 04/04/24: - creatinine 1.4 - GFR 36 - hx of CKD stage IIIB - trend renal function - trend electrolytes, correct as needed 04/05/24: Creatinine down to 1.2 Continue to trend Will hold off on Lasix and lisinopril for now 04/06: Cr 1.10 downtrending (3) Heart failure with preserved ejection fraction: Code(s): I50.30 - Unspecified diastolic (congestive) heart failure Status: Acute Assessment and Plan: 04/04/24: - no echo on file - daily weights - monitor I&Os - trend renal function 04/05/24: Obtain echo Strict I&O Will hold off on Lasix due to elevated creatinine Continue metoprolol 04/06: ECHO pending HR 120's; 130-160/96 (4) HTN (hypertension): Code(s): I10 - Essential (primary) hypertension Status: Acute Assessment and Plan: 04/04/24: - chronic, currently 149/99 - awaiting med rec - monitor 04/05/24: Blood pressure ranging 126/108 to 138/83 Continue to hold lisinopril due to creatinine elevation Continue metoprolol 04/06: Elevated blood pressures 130-160/90's HR 70's (5) CAD (coronary artery disease): Qualifiers: Coronary Disease-Associated Artery/Lesion type: unspecified vessel or lesion type Code(s): I25.10 - Atherosclerotic heart disease of [place] coronary artery without angina pectoris Status: Acute Assessment and Plan: 04/05/24: Continue atorvastatin (6) Hypothyroidism: Code(s): E03.9 - Hypothyroidism, unspecified Status: Acute Assessment and Plan: 04/05/24: Continue Synthroid DS: Summary Hospital Course Reason for hospitalization: constipation Hospital Course: This is an 88-year-old female presented to the hospital on 04/04/2024 with complaints constipation for a week to a week and a half.? Workup in the hospital included an abdomen pelvis CT which showed Stercoral colitis and a small pleural effusion.? Initial labs showed a normal white blood cell count of 6.8, hemoglobin 11.9, sodium 134, creatinine 1.4, EGFR 36, lactic acid 2.1> 1.6, AST 39, lipase 57.? A UA was obtained and was negative for bacteria.? Patient was given 1 L of LR and started on Flagyl and Rocephin.? GI and General surgery was consulted.? She was made NPO status. On examination today patient is alert to voice, lying in the bed. Patient is unable to contribute to her symptoms due to altered mental status at baseline. Labs today showed a sodium of 136, creatinine 1.2, EGFR 42, AST 38, otherwise unremarkable. Currently has had 5 BM's since admission. We did a KUB which still shows fecal impaction that is now to the rectum. I ordered another soap suds enema to assist her. The KUB does not show obstruction or an ileus. Spoke with daughter about bowel prep at home.? 04/06: Patient
== END 2024-04-07 12:20 | disposition home or self-care (01) ==
LOC: ANHED 14:32 → ANH3MED 18:21 → ANH3MEDSUR 20:08
PROVIDERS: Nurse Practitioner Acute Care; Student in an Organized Health Care Education/Training Program; Admitting Provider General Practice; Emergency Provider Emergency Medicine; PCP Nurse Practitioner Family; Visit Provider General Practice
DX: K52.89 Other specified noninfective gastroenteritis and colitis (principal); J90 Pleural effusion, not elsewhere classified; I48.91 Unspecified atrial fibrillation; I13.0 Hypertensive heart and chronic kidney disease with heart failure and stage 1 through stage 4 chronic kidney disease, or unspecified chronic kidney disease; I50.30 Unspecified diastolic (congestive) heart failure; N18.32 Chronic kidney disease, stage 3b; I25.10 Atherosclerotic heart disease of native coronary artery without angina pectoris; E03.9 Hypothyroidism, unspecified; F03.90 Unspecified dementia, unspecified severity, without behavioral disturbance, psychotic disturbance, mood disturbance, and anxiety; M06.9 Rheumatoid arthritis, unspecified; Z86.73 Personal history of transient ischemic attack (TIA), and cerebral infarction without residual deficits; Z79.01 Long term (current) use of anticoagulants
CPT/HCPCS: 36415; 74018; 74176; 80053; 81003; 83605; 83690; 83735; 84100; 85025; 93005; 96365; 96375; 96376; 99285; A9270; G0378; J0696; J1836; J7120

== ENCOUNTER 2024-04-30 20:15 | Inpatient (IN) | payer MEDICARE, SELFPAY ==
--- NOTE | ~2024-04-30 | XR_ITS ---
EXAMINATION: XR chest 1V portable DATE: 05/06/2024 10:37 INDICATION: Follow-up lung disease with pulmonary edema or pneumonia and pleural effusions on prior r adiograph. TECHNIQUE: frontal view of the chest was obtained. COMPARISON: Chest radiograph dated 05/05/24 FINDINGS: Cardiomegaly. Persistent opacities in the bilateral mid and lower lung zones consistent with small to moderate-sized pleural effusions and associated atelectasis and/or pneumonia. No pneumothorax. Calci fied nodule left lower lung and calcified left hilar lymph nodes consistent with old granulomatous di sease. Moderate thoracolumbar levoscoliosis with severe spondylosis. Plain screw fixation for a total lower cervical anterior spinal fusion. With cephalad subluxation of the right humeral head consisten t with rotator cuff arthropathy with suture anchors consistent with prior rotator cuff repair. IMPRESSION: 1. No significant change in small to moderate-sized bilateral pleural effusions with associated atele ctasis and/or pneumonia in the lower lungs. 2. Cardiomegaly. Reviewed, dictated and finalized at location A. IMPRESSION: 1. No significant change in small to moderate-sized bilateral pleural effusions with associated atelectasis and/or pneumonia in the lower lungs. 2. Cardiomegaly.
--- NOTE | ~2024-04-30 | CT_ITS ---
CT brain wo con Ordering provider: Casper Rojas MD History: 88 years Female with . AMS . Comparison: None. Technique: CT of the head without contrast. Radiation reduction technique utilized. FINDINGS: BRAIN PARENCHYMA AND CSF SPACES: Mild leukoaraiosis and diffuse cortical atrophy. Mild atheromatous d isease. Encephalomalacia seen in the left temporal parietal area suggestive of an old infarct. No mi dline shift, mass effect or hemorrhage. The brain parenchyma and CSF spaces are otherwise normal. VISUALIZED PARANASAL SINUSES: Normal. MASTOIDS: Normal. BONES: Normal. SOFT TISSUES: Visualized nasopharynx is normal. Superficial soft tissues are normal. IMPRESSION: No acute intracranial findings. 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 Reviewed, dictated and finalized at location A.
--- NOTE | ~2024-04-30 | CT_ITS ---
EXAMINATION: CT brain wo con DATE: 05/03/2024 18:29 INDICATION: Mental status changes TECHNIQUE: Computed tomography (CT) of the head was performed without intravenous contrast. Sagittal and coronal reconstructions were performed. The mA was adjusted according to patient size. Iterative reconstruction technique was employed. The dose-length product was 605.33 mGy-cm. COMPARISON: head CT dated 04/30/2024 FINDINGS: Large region of encephalomalacia in the left frontotemporoparietal region consistent with chronic inf arct. Additional small region of subtle malacia consistent with chronic infarct in the right frontal lobe. There is moderate scattered white matter hypoattenuation consistent with chronic small vessel i schemic disease. No acute intracranial hemorrhage, acute infarction or abnormal extra axial fluid col lection. Symmetric prominence of the sulci and ventricles consistent with moderate age-appropriate di ffuse cerebral volume loss. No mass/mass effect. Changes of bilateral intraocular lens replacement. T he orbits, paranasal sinuses and mastoid air cells are normal. IMPRESSION: 1. 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 No acute intracranial proc ess. 2. Age-related changes including moderate diffuse volume loss and moderate scattered white matter hyp oattenuation consistent with chronic small vessel ischemic disease. Reviewed, dictated and finalized at location A. IMPRESSION: 1. 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 No a cute intracranial process. 2. Age-related changes including moderate diffuse volume loss and moderate scat tered white matter hypoattenuation consistent with chronic small vessel ischemi c disease.
--- NOTE | ~2024-04-30 | CT_ITS ---
CT chest abdomen pelvis wo con Ordering provider: Estuardo Lieberman MD History: . sepsis, lactic acidosis . Comparison: April 30, 2024 Technique: CT chest without IV contrast. CT abdomen and pelvis without oral and IV contrast. Radiatio n reduction technique utilized. DLP 532.5 FINDINGS: The study is limited due to lack of IV contrast. CHEST: --VISUALIZED THORACIC INLET: Normal as visualized. --MEDIASTINUM: Aorta/coronary arteries: Mild atheromatous disease. Heart/other: The heart is slightly enlarged. Lymph nodes: No mediastinal or hilar adenopathy. --LUNGS: Bilateral moderate pleural effusion with adjacent atelectasis.. No pulmonary nodules or mass es. No pneumothorax. Atelectasis in the lingula and middle lobe. --MUSCULOSKELETAL: Soft tissues: Edema in the subcutaneous tissues is seen which is suggestive of volume overload. Bones: Age appropriate degenerative changes of the spine. Levoscoliosis. ABDOMEN/PELVIS: --MUSCULOSKELETAL: Bones: Age appropriate degenerative changes of the spine. Postoperative changes in the lumbar spine. Right hip arthroplasty. Bone defect in the right iliac bone. Superficial soft tissues: Edema in the subcutaneous tissues. --UPPER ABDOMINAL ORGANS: Liver: Normal. Gallbladder: Status post cholecystectomy. Spleen: Normal. Stomach/duodenum: Hypernse material in the stomach. Pancreas: Normal. Adrenals: Normal. Kidneys: Normal. --PELVIC ORGANS: Thickened wall of the urinary bladder with Gilbert's catheter. --BOWEL AND MESENTERY: Colon: No evidence of diverticulitis appendix is not well demonstrated with no no definite evidence o f appendicitis. Small Bowel: Normal. No obstruction. Peritoneum/mesentery: No free air. Minimal free fluid in the pelvis. No mesenteric lymphadenopathy. M esenteric fat stranding is seen. Inflammatory changes should be considered. --RETROPERITONEUM: Mild atheromatous disease of the abdominal aorta. No retroperitoneal lymphadenop athy. IMPRESSION: CHEST: 1. Bilateral moderate pleural effusion with adjacent atelectasis. Atelectatic changes in the lingula and middle lobe. 2. Cardiomegaly. ABDOMEN/PELVIS: 1. Fluid in the pelvis with fat stranding of the mesentery inflammatory changes should be considered . 2. Edema in the subcutaneous tissues which may indicate volume overload. Reviewed, dictated and finalized at location A. IMPRESSION: CHEST: 1. Bilateral moderate pleural effusion with adjacent atelectasis. Atelectatic changes in the lingula and middle lobe. 2. Cardiomegaly. ABDOMEN/PELVIS: 1. Fluid in the pelvis with fat stranding of the mesentery inflammatory change s should be considered. 2. Edema in the subcutaneous tissues which may indicate volume overload.
--- NOTE | ~2024-04-30 | XR_ITS ---
MODIFIED ESOPHAGRAM HISTORY: Witnessed choking episode TECHNIQUE: Modified barium esophagram was performed on 05/03/2024. I administered fluoroscopy and perf ormed the exam with speech pathologist. Patient was seated for lateral fluoroscopic imaging for christal stion of thin liquids, pudding, solids and quantified amounts, followed by thin liquids in uncontroll ed amounts. This was recorded on tape. A single fluoroscopic spot image was also recorded. The DAP fo r this procedure was 1.685 Gycm2. The amount of fluoroscopy time used during this procedure was 2.0 m inutes. FINDINGS: Oral stage: Adequate function. Pharyngeal stage: Reduced laryngeal elevation and tongue base retraction. There is vallecular residue . Laryngeal penetration without aspiration.. Cervical/esophageal stage: Adequate function. IMPRESSION: Pharyngeal dysphagia with laryngeal penetration without aspiration. Please correlate wit h speech pathologist findings and specific feeding recommendations. Reviewed, dictated and finalized at location A. IMPRESSION: Pharyngeal dysphagia with laryngeal penetration without aspiration. Please correlate with speech pathologist findings and specific feeding recomm endations.
--- NOTE | ~2024-04-30 | US_ITS ---
US right upper quadrant INDICATION: Transaminitis PROCEDURE: Realtime right upper abdominal ultrasound. COMPARISON: No prior studies for comparison. FINDINGS: The pancreas is normal without focal mass or pancreatic ductal dilation. Nodular liver isaias face, compatible with cirrhosis. Trace ascites only. Hepatic margin. There is mild intrahepatic and e xtrahepatic biliary dilatation. CBD measures 9 mm. Gallbladder is surgically absent. There is normal directional flow in the portal vein. IMPRESSION: 1: Nodular liver surface, compatible with cirrhosis. Trace ascites. 2: Mild biliary dilatation. Reviewed, dictated and finalized at location B.
--- NOTE | ~2024-04-30 | CT_ITS ---
EXAMINATION: CT brain wo con DATE: 05/06/2024 11:30 INDICATION: Unequal pupils. Possible stroke. TECHNIQUE: Computed tomography (CT) of the head was performed without intravenous contrast. Sagittal and coronal reconstructions were performed. Automated exposure control and iterative reconstruction t echnique were employed. The dose-length product was 1210.67 mGy-cm. COMPARISON: head CT dated 05/03/2024 FINDINGS: Large region of encephalomalacia in the left frontotemporoparietal region and insula and additional s maller region of encephalomalacia in the right frontal lobe consistent with chronic infarcts. There i s moderate scattered white matter hypoattenuation consistent with chronic small vessel ischemic disea se. No acute intracranial hemorrhage, acute infarction or abnormal extra axial fluid collection. Symm etric prominence of the sulci and ventricles consistent with moderate age-appropriate diffuse cerebra l volume loss. No mass/mass effect. Changes of bilateral intraocular lens replacement. The orbits, pa ranasal sinuses and mastoid air cells are normal. IMPRESSION: 1. 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 No acute intracranial proc ess. 2. Age-related changes including moderate diffuse volume loss and moderate scattered white matter hyp oattenuation consistent with chronic small vessel ischemic disease. Reviewed, dictated and finalized at location A. IMPRESSION: 1. 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 No a cute intracranial process. 2. Age-related changes including moderate diffuse volume loss and moderate scat tered white matter hypoattenuation consistent with chronic small vessel ischemi c disease.
--- NOTE | ~2024-04-30 | CT_ITS ---
CT abdomen pelvis wo con Ordering provider: Casper Rojas MD History: 88 years Female with . Transaminitis . Comparison: April 04, 2024 Technique: CT abdomen and pelvis without IV and without oral contrast. Radiation reduction technique utilized. Findings: VISUALIZED LOWER CHEST: Bilateral basal atelectasis with bilateral moderate pleural effusion. Cardiom egaly. Atelectatic changes in the middle lobe and lingula UPPER ABDOMINAL ORGANS: Liver: Normal. Gallbladder: Status post cholecystectomy. Spleen: Normal. Stomach/duodenum: Normal. Pancreas: Normal. Adrenals: Normal. Kidneys: Normal. PELVIC ORGANS: Thickened wall of the bladder. Evaluation for cystitis is advised. BOWEL AND MESENTERY: Colon: Mild sigmoid diverticulosis without diverticulitis. Thickened wall of the rectum. Appendix is not well demonstrated. Small Bowel: Normal. No obstruction. Peritoneum/mesentery: No free air. Minimal free fluid seen in the pelvis. No mesenteric lymphadenopat hy. RETROPERITONEUM: Mild atheromatous disease of the abdominal aorta. No retroperitoneal lymphadenopat hy. MUSCULOSKELETAL: Superficial soft tissues: The superficial soft tissues shows edema in the subcutaneous tissues. Volum e overload is not excluded. Bones: Age appropriate degenerative changes of the spine. Postoperative changes in the lower lumbar a pura. Dextroscoliosis. Right hip arthroplasty. Left hip osteoarthritic changes. Lucent area in the right iliac bone which may be status post biopsy or a cyst. IMPRESSION: 1. Bilateral moderate pleural effusion with bilateral atelectatic changes. Cardiomegaly. 2. No evidence of obstruction. 3. Minimal fluid in the pelvis. 4. Thickened wall of the rectum. Clinical evaluation advised. Reviewed, dictated and finalized at location A. IMPRESSION: 1. Bilateral moderate pleural effusion with bilateral atelectatic changes. Car diomegaly. 2. No evidence of obstruction. 3. Minimal fluid in the pelvis. 4. Thickened wall of the rectum. Clinical evaluation advised.
--- NOTE | ~2024-04-30 | US_ITS ---
EXAMINATION: US renal BI DATE: 05/02/2024 14:07 INDICATION: Elevated creatinine TECHNIQUE: Multiple ultrasound grayscale images of the kidneys were obtained. COMPARISON: None. FINDINGS: The right kidney measures 7.7 x 3.7 x 4.8 cm. The right kidney demonstrates normal echogenicity with no hydronephrosis. No stones identified.The left kidney is not definitively identified. The bladder i s also not visualized likely decompressed with a Gilbert catheter reportedly in place. Small left pleur al effusion. IMPRESSION: 1. Normal right kidney without hydronephrosis. The left kidney was unable to visualized but appears mildly atrophic with no hydronephrosis at the time of the prior CT on 04/30/2024. 2. Small left pleural effusion. Reviewed, dictated and finalized at location A. IMPRESSION: 1. Normal right kidney without hydronephrosis. The left kidney was unable to v isualized but appears mildly atrophic with no hydronephrosis at the time of the prior CT on 04/30/2024. 2. Small left pleural effusion.
--- NOTE | ~2024-04-30 | XR_ITS ---
XR chest 1V portable Ordering provider: Augusto Gurrola MD History: 88 years Female with . aspiration, pleural effusions . Comparison: May 02, 2024 FINDINGS: MEDIASTINUM: The cardiac silhouette is moderately enlarged. Congestive elizabeth. LUNGS: No pneumothorax. Bilateral airspace disease seen in the perihilar and lower lobes suggestive o f pulmonary edema. Pneumonia cannot be excluded. Minimal left pleural effusion is highly suggestive. OTHER: No free air under the diaphragm. Degenerative changes of the spine. Levoscoliosis. IMPRESSION: Cardiomegaly with congestive elizabeth and bilateral perihilar and lower lobe opacification suggestive of pulmonary edema. Pneumonia is not excluded. Worsening compared to the previous study is seen. Reviewed, dictated and finalized at location A. IMPRESSION: Cardiomegaly with congestive elizabeth and bilateral perihilar and lower lobe opacif ication suggestive of pulmonary edema. Pneumonia is not excluded. Worsening com pared to the previous study is seen.
--- NOTE | ~2024-04-30 | XR_ITS ---
XR shoulder RT min 2V Ordering provider: Brooks Obregon DO History: . Right upper limb pain, poor historian, best attempt imaging . Comparison: None. FINDINGS: BONES: No acute fracture or dislocation. Postoperative changes seen. JOINT SPACES: Severe osteoarthritic changes of the glenohumeral joint. . SOFT TISSUES: Normal. IMPRESSION: No acute osseous abnormality right shoulder. 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 Consider MRI of the shoulder if there is concern for soft tissue internal derangement. Reviewed, dictated and finalized at location A. IMPRESSION: No acute osseous abnormality right shoulder. Severe osteoarthritic changes of t he glenohumeral joint. Consider MRI of the shoulder if there is concern for soft tissue internal deran brittani.
--- NOTE | ~2024-04-30 | XR_ITS ---
XR chest 1V portable Ordering provider: Casper Rojas MD History: 88 years Female with . Infection . Comparison: None. FINDINGS: MEDIASTINUM: The cardiac silhouette is slightly enlarged. Congestive elizabeth. Atherosclerotic changes of the aorta. LUNGS: Opacification in the lung bases more on the right side with possible right pleural effusion. N o pneumothorax seen. OTHER: No free air under the diaphragm. Degenerative changes of the spine with S-shaped scoliosis. Po stoperative changes in the cervical spine. Degenerative shoulders. IMPRESSION: Cardiomegaly with congestive elizabeth. Right basal pneumonia with possible effusion. Possible atelectasis versus pneumonia in the left lung base. Reviewed, dictated and finalized at location A.
--- NOTE | ~2024-04-30 | XR_ITS ---
Portable chest x-ray Comparison: 04/30/2024 Clinical History: Hypoxia Findings: Small bilateral pleural effusions are present. There is mild pulmonary edema pattern. Car diomediastinal silhouette is stable. Bones and soft tissues are stable. Impression: Small bilateral pleural effusions with mild pulmonary edema pattern. Stable presumed cardiomegaly. Pericardial effusion isn't excluded. Reviewed, dictated and finalized at [facility]. Impression: Small bilateral pleural effusions with mild pulmonary edema pattern. Stable presumed cardiomegaly. Pericardial effusion isn't excluded.
[2024-04-30 20:25] VITALS: BP 91/72; PULSE 91; RESP 26; TEMP 35.6
[2024-04-30 20:46] VITALS: PULSE 91
[2024-04-30 20:48] VITALS: BP 91/72; PULSE 80; RESP 24
--- NOTE | 2024-04-30 20:50 | ECG_ITS ---
Test Date: 2024-04-30 20:34:14 Measurements Intervals [place] Rate: 84 P: 0 VT: 0 QRS: -16 QRSD: 165 T: 56 QT: 411 QTc: 488 Interpretive Statements ATRIAL FIBRILLATION INTRAVENTRICULAR CONDUCTION DELAY [130+ ms QRS DURATION] BASELINE ARTIFACT WHICH LIMITS INTERPRETATION No previous ECG available for comparison Electronically Signed On 05-01-2024 12:41:43 CDT by Jony Rogers M.D.
[2024-04-30 21:05] LABS: Basophils Percent Auto 0.3 % (0.2-1.2); Eosinophils Percent Auto 0.1 % (0-4.4); Hematocrit 38.6 % (37.0-47.0); Hemoglobin 12.2 g/dL (12.0-15.0); Immature Granulocyte Absolute 0.03 K/mm3 (0.00-0.031); Immature Granulocyte Percent A 0.4 % (0-0.5); Lymphocytes Absolute Auto 0.98 K/mm3 (0.9-3.2); Lymphocytes Percent Auto 13.8 % (18.3-44.2); Mean Corpuscular HGB Conc 31.6 g/dl (32-36); Mean Corpuscular Hemoglobin 35.1 pg (26-34); Mean Corpuscular Volume 110.9 fl (80-100); Mean Platelet Volume 12.5 fl (7.4-10.4); Monocytes Absolute Auto 0.6 K/mm3 (0.1-0.6); Monocytes Percent Auto 8.3 % (2.6-8.5); Neutrophils Absolute Auto 5.5 K/mm3 (1.3-6.7); Neutrophils Percent Auto 77.1 % (45.5-73.1); Platelet Count Result 152 k/mm3 (150-375); Red Blood Count 3.48 M/mm3 (4.2-5.4); Red Cell Distribution Width 17.3 % (11.5-14.5); White Blood Count 7.1 K/mm3 (4.5-10.0)
[2024-04-30 21:19] LABS: INR 3.5; Partial Thromboplastin Time 43.4 Seconds (22.3-36.8); Prothrombin Time 35.3 Seconds (11.1-14.7)
[2024-04-30 21:21] LABS: Anisocytosis 2+; Macrocytosis 1+ (NORMAL); Platelet Estimate Adequate (Adequate)
[2024-04-30 21:22] LABS: Lactic Acid Reflex 5.1 mmol/L (0.7-2.0); Schistocytes None Seen
[2024-04-30] MEDS: SODIUM CHLORIDE 0.9% IV 1,000 ML 999 ML IV CONT ×2 (21:43→23:52)
[2024-04-30 22:05] LABS: Appearance Urine Cloudy (Clear); Bacteria Urine Rare /hpf; Bilirubin Urine Negative (Negative); Blood Urine Negative (Negative); Color Urine Dark Yellow (Yellow); Glucose Urine UA Negative (Negative); Hyaline Casts Urine Present /lpf; Ketones Urine Trace mg/dL (Negative); Leukocyte Esterase Ur Negative LEU/UL (Negative); Nitrate Urine Negative (Negative); Non Pathogenic Casts >20; Protein Urine 2+ mg/dL (Negative); Specific Grav Ur 1.023 (1.001-1.035); Squamous Epithelial Cell Urine Few /hpf (Few)
[2024-04-30 22:06] LABS: Add Urine Microscopic? YES
[2024-04-30 22:14] VITALS: BP 97/82; PULSE 86; RESP 24; O2SAT 96
[2024-04-30 22:14] LABS: Alanine Aminotransferase 408 U/L (6-35); Albumin Level 3.9 g/dL (3.5-5.1); Alkaline Phosphatase 122 U/L (38-126); Anion Gap 15 mmol/L (4-12); Aspartate Amino Transferase 565 U/L (14-36); Bilirubin,Total 1.1 mg/dL (0.2-1.3); Blood Urea Nitrogen 59 mg/dL (7-17); Calcium 9.7 mg/dL (8.4-10.2); Carbon Dioxide 17 mmol/L (22-30); Chloride 108 mmol/L (98-107); Estimated Glomerular Filt Rate 18; Glucose 109 mg/dL (65-110); Magnesium 2.2 mg/dL (1.6-2.3); Potassium 5.4 mmol/L (3.4-5.0); Sodium 140 mmol/L (137-145)
[2024-04-30 22:15] VITALS: O2SAT 96
--- NOTE | 2024-04-30 22:24 | ED.AMS ---
HPI - Altered Mental Status General Chief Complaint: Altered Mental Status Stated Complaint: ALTERED MENTAL STATUS Time Seen by Provider: 04/30/24 20:36 History of Present Illness HPI narrative: Patient is a 88-year-old female who presents to the emergency department this evening due to concern for altered mental status. Patient's daughter who is present at bedside states that since Sunday for the past 3 days patient has been having these intermittent episodes of agitation and seems to be a bit more altered. Daughter states that today was the worst episode of the past 3 days. Patient does have a history of chronic arthritis and does take hydrocodone daily. When EMS arrived, patient was minimally responsive and secondary to this patient was administered Narcan 1 mg. Upon arrival to our emergency department, patient does appear to be delirious, is agitated, moving all 4 extremities spontaneously, and continues to moan. Daughter states that this is likely secondary to the Narcan as she needs her narcotics to make it through her arthritis pain. Related Data Home Medications Medication Instructions Recorded Confirmed apixaban 2.5 mg tablet (Eliquis) 2.5 mg PO BID 04/05/24 04/05/24 atorvastatin 40 mg tablet 40 mg PO DAILY 04/05/24 04/05/24 Allergies Allergy/AdvReac Type Severity Reaction Status Date / Time iodine Allergy Unknown Verified 03/27/24 13:27 Penicillins Allergy Unknown Verified 03/27/24 13:27 contrast dye Allergy Other Uncoded 03/27/24 13:27 Review of Systems Review of Systems: Unable to obtain a full review of systems secondary to patient's current altered mental status and nonverbal status. [facility] Past Medical History Medical History Atrial fibrillation CAD (coronary artery disease) Chronic pain Dementia Dyslipidemia Eczematous dermatitis Heart failure with preserved ejection fraction HTN (hypertension) Hx of completed stroke Hypothyroidism Inflammatory arthritis Osteoarthritis Stage 3b chronic kidney disease Surgical History Surgical History History of hip replacement History of hysterectomy History of spinal surgery Family History Family History Father Hypertension Cerebrovascular accident Mother Hypertension Social History Social History Smoking status: Unknown if ever smoked Alcohol intake: unknown Substance use: never Substance use type: does not use Do You Feel Safe in your Home?: Yes Lack of Transportation: No Lack of Food: Never True Current Housing: I Have Housing Concerned About Future Housing: No Difficulty Paying Gas/Electric Bills: No Difficulty Paying for Meds: No Currently Unemployed: No Education: Master's Degree or Higher Difficulty w/ Childcare or Family Care: No Living arrangements: with family Gender identity (if verbalized by the patient): Female Sexual Orientation (if Verbalized by the Patient): Straight or Heterosexual Spiritual care concerns: No Exam Narrative: General: Awake, afebrile, agitated, moaning. HEENT: PERRL, no rhinorrhea, no post nasal drip, oropharynx clear. Cardiovascular: Regular rate with an irregular rhythm, no murmurs, rubs or gallops, no peripheral edema. Respiratory: Clear to auscultation bilaterally, no tachypnea, no wheezing, no rhonchi, no rubs, no respiratory distress. Abdomen: Soft, nontender, nondistended, no rebound, no guarding, no peritoneal signs. Musculoskeletal: No joint swelling or deformity, normal muscle tone. Skin: No rashes or petechia, no signs of infection. Neurological: Alert and oriented x0. Not following commands. Agitated, moaning and screaming, moving all 4 extremities spontaneously, no obvious neurological deficit noted at this time within the limitations of the neurological examination. Course Vital Signs Vital signs: Vital Signs Temperature 96.0 F L 04/30/24 20:25 Pulse Rate 91 04/30/24 20:25 Respiratory Rate 26 H 04/30/24 20:25 Blood Pressure 91/72 L 04/30/24 20:25 Temperature 96.0 F L 04/30/24 20:25 Pulse Rate 88 04/30/24 23:52 Respiratory Rate 22 H 04/30/24 23:52 Blood Pressure 105/92 H 04/30/24 23:52 Pulse Oximetry 96 04/30/24 23:52 Oxygen Delivery Room Air 04/30/24 22:15 MDM - Altered Mental Status MDM Narrative Medical decision making narrative: The patient was evaluated by myself in the emergency department. History is obtained from daughter who is an independent historian and physical exam was performed. External medical records were reviewed at this time. IV was established and pertinent tests were ordered. Initial blood pressure was 91/72 mmHg. Patient did have multiple episodes of diarrhea in the emergency department. Patient was administered 1 L IV fluid bolus with normal saline. EKG was obtained which revealed atrial fibrillation rate of 84 beats per minute. No ST changes, T wave inversions or evidence of acute ischemia. EKG was independently interpreted by me and is currently pending official cardiology read. Laboratory results obtained revealing a lactic acid of 5.1, potassium 5.4, anion gap 15, BUN 59, creatinine 2.50 which is elevated from patient's baseline creatinine of 1.10, and transaminitis with an AST of 565, ALT 408. Urinalysis revealed no urinary tract infection. A 2nd IV fluid bolus was administered at this time and patient was then started on maintenance fluids at 100 cc/hour. Repeat blood pressure currently 118/77 mmHg. Imaging studies obtained included CT brain without IV contrast which was independently interpreted by me revealing no acute process, which is pending final radiology interpretation. CXR was also obtained at this time and independently interpreted by me revealing a left lower lobe pneumonia with effusion. At this time, patient was started on IV Levaquin 750 mg once in the ED after blood cultures were obtained. CT abdomen pelvis without IV contrast was obtained at this revealing thickened wall of the rectum otherwise unremarkable, liver appears to be within normal limits. Differential diagnosis considerations include delirium secondary to infectious process such as urinary tract infection, pneumonia, dehydration, acute kidney injury, electrolyte derangements. Comorbidities impacting this visit include none. I have evaluated and discussed social determinants of health with the patient that could potentially impact subsequent diagnosis and treatment plans. On repeat assessment of the patient, reevaluation revealed that the patient is doing well and is in no acute distress. Patient symptoms have improved since she arrived to our emergency department. Repeat vital signs were all reviewed and noted to be stable. Patient will be admitted to our general medical under the care of Dr. Naidu and case was discussed with her over the phone at 0015 and she accepted admission. The patient remains stable and ready for admission. Lab Data 04/30/24 20:59 04/30/24 21:58 Labs: Lab Results 04/30/24 04/30/24 04/30/24 Range/Units 20:59 21:45 21:51 WBC 7.1 (4.5-10.0) K/mm3 RBC 3.48 L (4.2-5.4) M/mm3 Hgb 12.2 (12.0-15.0) g/dL Hct 38.6 (37.0-47.0) % MCV 110.9 H (80-100) fl MCH 35.1 H (26-34) pg MCHC 31.6 L (32-36) g/dl RDW 17.3 H (11.5-14.5) % Plt Count 152 (150-375) k/mm3 MPV 12.5 H (7.4-10.4) fl Immature Gran % (Auto) 0.4 (0-0.5) % Neut % (Auto) 77.1 H (45.5-73.1) % Lymph % (Auto) 13.8 L (18.3-44.2) % [place] % (Auto) 8.3 (2.6-8.5) % Eos % (Auto) 0.1 (0-4.4) % Baso % (Auto) 0.3 (0.2-1.2) % Lymph # (Auto) 0.98 (0.9-3.2) K/mm3 [place] # (Auto) 0.6 (0.1-0.6) K/mm3 Eos # (Auto) 0.0 (0-0.3) K/mm3 Baso # (Auto) 0.0 (0.0-0.1) K/mm3 Abs Immat Gran (auto) 0.03 (0.00-0.031) K/mm3 Absolute Neuts (auto) 5.5 (1.3-6.7) K/mm3 Absolute Nucleated RBC 0.140 H (0.0-0.012) K/mm3 Nucleated RBC % 2.0 H (0.0-0.2) % Platelet Estimate Adequate (Adequate) Anisocytosis 2+ Macrocytosis 1+ (NORMAL) Schistocytes None seen PT 35.3 H (11.1-14.7) Seconds INR 3.5 APTT 43.4 H (22.3-36.8) Seconds Sodium (137-145) mmol/L Potassium (3.4-5.0) mmol/L Chloride (98-107) mmol/L Carbon Dioxide (22-30) mmol/L Anion Gap (4-12) mmol/L BUN (7-17) mg/dL Creatinine (0.7-1.0) mg/dL Estim Creat Clear Calc Estimated GFR (59 - ) Glucose (65-110) mg/dL Lactic Acid 5.1 H* (0.7-2.0) mmol/L Calcium (8.4-10.2) mg/dL Magnesium (1.6-2.3) mg/dL Total Bilirubin (0.2-1.3) mg/dL AST (14-36) U/L ALT (6-35) U/L Alkaline Phosphatase (38-126) U/L Total Protein (6.3-8.2) g/dL Albumin (3.5-5.1) g/dL Urine Color Dark yellow (Yellow) Urine Appearance Cloudy H (Clear) Urine pH 5.0 (5.0-9.0) Ur Specific Media 1.023 (1.001-1.035) Urine Protein 2+ H (Negative) mg/dL Urine Glucose (UA) Negative (Negative) mg/dL Urine Ketones Trace H (Negative) mg/dL Ur Blood (Man) Negative (Negative) Urine Nitrate Negative (Negative) Urine Bilirubin Negative (Negative) Urine Urobilinogen 1.0 (<2.0) mg/dL Leukocyte Esterase Rfl Negative (Negative) REYMUNDO/UL Urine RBC 6-10 H (0-2) /hpf Urine WBC 6-10 H (0-3) /hpf Ur Squamous Epith Cells Few (Few) /hpf Urine Bacteria Rare /hpf Urine Casts >20 Hyaline Casts Present (None) /lpf Acetaminophen 13 (10-30) ug/mL // Range/Units 21:58 WBC (4.5-10.0) K/mm3 RBC (4.2-5.4) M/mm3 Hgb (12.0-15.0) g/dL Hct (37.0-47.0) % MCV (80-100) fl MCH (26-34) pg MCHC (32-36) g/dl RDW (11.5-14.5) % Plt Count (150-375) k/mm3 MPV (7.4-10.4) fl Immature Gran % (Auto) (0-0.5) % Neut % (Auto) (45.5-73.1) % Lymph % (Auto) (18.3-44.2) % [place] % (Auto) (2.6-8.5) % Eos % (Auto) (0-4.4) % Baso % (Auto) (0.2-1.2) % Lymph # (Auto) (0.9-3.2) K/mm3 [place] # (Auto) (0.1-0.6) K/mm3 Eos # (Auto) (0-0.3) K/mm3 Baso # (Auto) (0.0-0.1) K/mm3 Abs Immat Gran (auto) (0.00-0.031) K/mm3 Absolute Neuts (auto) (1.3-6.7) K/mm3 Absolute Nucleated RBC (0.0-0.012) K/mm3 Nucleated RBC % (0.0-0.2) % Platelet Estimate (Adequate) Anisocytosis Macrocytosis (NORMAL) Schistocytes PT (11.1-14.7) Seconds INR APTT (22.3-36.8) Seconds Sodium 140 (137-145) mmol/L Potassium 5.4 H (3.4-5.0) mmol/L Chloride 108 H (98-107) mmol/L Carbon Dioxide 17 L (22-30) mmol/L Anion Gap 15 H (4-12) mmol/L BUN 59 H D (7-17) mg/dL Creatinine 2.50 H (0.7-1.0) mg/dL Estim Creat Clear Calc Not Reportable Estimated GFR 18 L (59 - ) Glucose 109 (65-110) mg/dL Lactic Acid (0.7-2.0) mmol/L Calcium 9.7 (8.4-10.2) mg/dL Magnesium 2.2 (1.6-2.3) mg/dL Total Bilirubin 1.1 (0.2-1.3) mg/dL AST 565 H (14-36) U/L ALT 408 H (6-35) U/L Alkaline Phosphatase 122 (38-126) U/L Total Protein 7.0 (6.3-8.2) g/dL Albumin 3.9 (3.5-5.1) g/dL Urine Color (Yellow) Urine Appearance (Clear) Urine pH (5.0-9.0) Ur Specific Media (1.001-1.035) Urine Protein (Negative) mg/dL Urine Glucose (UA) (Negative) mg/dL Urine Ketones (Negative) mg/dL Ur Blood (Man) (Negative) Urine Nitrate (Negative) Urine Bilirubin (Negative) Urine Urobilinogen (<2.0) mg/dL Leukocyte Esterase Rfl (Negative) REYMUNDO/UL Urine RBC (0-2) /hpf Urine WBC (0-3) /hpf Ur Squamous Epith Cells (Few) /hpf Urine Bacteria /hpf Urine Casts Hyaline Casts (None) /lpf Acetaminophen (10-30) ug/mL Discharge Plan Discharge Clinical Impression: Acute delirium, Dehydration, High anion gap metabolic acidosis, Acute kidney injury, Diarrhea, Transaminitis Patient Disposition: Still a Patient Condition: Improved Prescriptions: No Action atorvastatin 40 mg tablet 40 mg PO DAILY Eliquis 2.5 mg tablet 2.5 mg PO BID polyethylene glycol 3350 [Miralax] 17 gram/dose powder 17 g PO BID Qty: 119 0RF senna 8.6 mg capsule 8.6 mg PO DAILY Qty: 30 0RF docusate sodium [Colace] 100 mg capsule 100 mg PO BID Qty: 60 0RF furosemide 20 mg tablet 20 mg PO QAM Qty: 90 1RF metoprolol tartrate 75 mg tablet 75 mg PO BID Qty: 180 1RF levothyroxine 150 mcg tablet 150 mcg PO DAILY Qty: 90 3RF triamcinolone acetonide 0.1 % cream 1 applic topical BID Qty: 453.6 0RF Rx Instructions: for up to 14 days at a time for eczema, do not apply to face and neck hydrocodone-acetaminophen 10-325 mg tablet 1 tablet PO QID PRN (Reason: pain) Qty: 120 0RF trazodone 100 mg tablet 100 mg PO QHS Qty: 90 1RF lisinopril 5 mg tablet 5 mg PO DAILY Qty: 90 1RF Follow-up/Referrals: Rhianna Duckworth APRN [Primary Care Provider] - Time of Disposition: 00:29
[2024-04-30 22:38] LABS: Acetaminophen 13 ug/mL (10-30)
[2024-04-30] MEDS: levoFLOXacin 750 MG/D5W 150 ML 750 MG/150 ML BAG 100 MG IVPB (22:39)
[2024-04-30 23:52] VITALS: BP 105/92; PULSE 88; RESP 22; O2SAT 96
[2024-05-01] VITALS (12 sets, daily range): BP systolic 99–135; BP diastolic 62–98; PULSE 73–107; RESP 16–22; TEMP 36–36.4; O2SAT 92–98; BMI 24.7
[2024-05-01 00:03] LABS: Reflex Lactic Acid Yes or No Add Lactic
[2024-05-01] MEDS: SODIUM CHLORIDE 0.9% IV 1,000 ML 100 ML IV CONT (01:35)
--- NOTE | 2024-05-01 01:55 | PC.NURSE ---
This RN was just notified of patient bed assignment. Pt to be taken to floor jerome.
--- NOTE | 2024-05-01 05:55 | ADMGEN ---
This patient, Esperanza Mark, was admitted to 3 Med Surg Room 322-02 at 0200. Patient/family oriented to hospital policies and general routines including ID bracelet, bed and alarms, visiting hours, pain management, procedures, bathroom and other care routines, personal items, smoking policy, room service/diet, and visiting hours. Information on how to activate the Rapid Response Team has been discussed. Patient/Family are encouraged to report perceived risks to care and to ask questions if they do not understand what they are told or what they should do.
--- NOTE | 2024-05-01 08:29 | P.HP_ITS ---
H&P: HPI History of Present Illness Date/Time: 05/01/24 08:29 Chief Complaint: Altered mental status Narrative: Patient is a 88-year-old female who presents to the emergency department this evening due to concern for altered mental status. Patient's daughter reported that since Sunday for the past 3 days patient has been having these intermittent episodes of agitation and seems to be a bit more altered. Daughter states that today was the worst episode of the past 3 days. Patient does have a history of chronic arthritis and does take hydrocodone daily. When EMS arrived, patient was minimally responsive and secondary to this patient was administered Narcan 1 mg. Upon arrival to our emergency department, patient appeared deliriious and agitated, moving all 4 extremities spontaneously, and continues to moan. Daughter states that this is likely secondary to the Narcan as she needs her narcotics to make it through her arthritis pain. Patient was also hypotensive. Patient had multiple episodes of diarrhea in the ED. iv fluid received in the ED. EKG with atrial fibrillation at the rate of 84. Laboratory evaluation revealed lactic acid of 5.1 potassium of 5.4 anion gap of 15 BUN 59 creatinine was 2.5 which is elevated from baseline of 1.1 transaminitis with AST of 565 ALT of 4 hallucis revealed no UTI. Blood pressure improved with resuscitation CT brain with no acute process. Chest x-ray with left lower lobe pneumonia IV antibiotics was started. CT abdomen pelvis revealed thickening of the rectum otherwise unremarkable. patient currently agitated and confused, does not folow much commands. awake and alert but confused. rest of the history coudl not be obtained due to her medical condition. Review of Systems Review of Systems: ROS unobtainable: Yes unobtainable due to medical condition PMFSH Past Medical History Medical History Atrial fibrillation CAD (coronary artery disease) Chronic pain Dementia Dyslipidemia Eczematous dermatitis Heart failure with preserved ejection fraction HTN (hypertension) Hx of completed stroke Hypothyroidism Inflammatory arthritis Osteoarthritis Stage 3b chronic kidney disease Surgical History Surgical History History of hip replacement History of hysterectomy History of spinal surgery Family History Family History Father Hypertension Cerebrovascular accident Mother Hypertension Social History Social History Smoking status: Unknown if ever smoked Alcohol intake: unknown Substance use: never Substance use type: does not use Do You Feel Safe in your Home?: Yes Lack of Transportation: No Lack of Food: Never True Current Housing: I Have Housing Concerned About Future Housing: No Difficulty Paying Gas/Electric Bills: No Difficulty Paying for Meds: No Currently Unemployed: No Education: Master's Degree or Higher Difficulty w/ Childcare or Family Care: No Living arrangements: with family Gender identity (if verbalized by the patient): Female Sexual Orientation (if Verbalized by the Patient): Straight or Heterosexual Spiritual care concerns: No Meds Home Medications and Allergies Home Medications Medication Instructions Recorded Confirmed Type furosemide 20 mg tablet 20 mg PO QAM #90 tabs 03/15/24 05/01/24 Rx apixaban 2.5 mg tablet (Eliquis) 2.5 mg PO BID 04/05/24 05/01/24 History atorvastatin 40 mg tablet 40 mg PO DAILY 04/05/24 05/01/24 History docusate sodium 100 mg capsule 100 mg PO BID #60 caps 04/07/24 05/01/24 Rx (Colace) polyethylene glycol 3350 17 17 g PO BID #119 grams 04/07/24 05/01/24 Rx gram/dose oral powder (Miralax) sennosides 8.6 mg capsule (senna) 8.6 mg PO DAILY #30 caps 04/07/24 05/01/24 Rx metoprolol tartrate 75 mg tablet 75 mg PO BID #180 tabs 04/09/24 05/01/24 Rx levothyroxine 150 mcg tablet 150 mcg PO DAILY #90 tabs 04/10/24 05/01/24 Rx triamcinolone acetonide 0.1 % 1 applic topical BID #453.6 grams 04/14/24 05/01/24 Rx topical cream hydrocodone 10 mg-acetaminophen 1 tablet PO QID PRN pain #120 tabs 04/22/24 05/01/24 Rx 325 mg tablet lisinopril 5 mg tablet 5 mg PO DAILY #90 tabs 04/23/24 05/01/24 Rx trazodone 100 mg tablet 100 mg PO QHS #90 tabs 04/23/24 05/01/24 Rx Allergies Allergy/AdvReac Type Severity Reaction Status Date / Time iodine Allergy Unknown Verified 05/01/24 04:01 Penicillins Allergy Unknown Verified 05/01/24 04:01 contrast dye Allergy Other Uncoded 05/01/24 04:01 Vital Signs Vital Signs - 24 hr 04/30/24 20:25 04/30/24 20:46 04/30/24 20:48 Temperature 96.0 F L Pulse Rate 91 91 80 Respiratory Rate 26 H 24 H Blood Pressure 91/72 L 91/72 L Pulse Oximetry Oxygen Delivery 04/30/24 22:14 04/30/24 22:15 04/30/24 23:52 Temperature Pulse Rate 86 88 Respiratory Rate 24 H 22 H Blood Pressure 97/82 L 105/92 H Pulse Oximetry 96 96 96 Oxygen Delivery Room Air 05/01/24 01:34 05/01/24 03:07 05/01/24 03:36 Temperature 97 F L Pulse Rate 87 76 Respiratory Rate 22 H 22 H Blood Pressure 124/94 H 110/98 H Pulse Oximetry 95 98 Oxygen Delivery Room Air 05/01/24 05:49 Temperature 97 F L Pulse Rate 75 Respiratory Rate 16 Blood Pressure 99/69 L Pulse Oximetry 98 Oxygen Delivery Exam Narrative: General: Awake, alert, confused HEENT: PERRL, no rhinorrhea, no post nasal drip, oropharynx clear. Cardiovascular: Regular rate with an irregular rhythm, no murmurs, rubs or gallops, no peripheral edema. Respiratory: Diminished breath sounds bilaterally, no wheezing, no rhonchi, no rubs, no respiratory distress. Abdomen: Soft, nontender distended, Musculoskeletal: No joint swelling or deformity, normal muscle tone. Skin: No rashes or petechia, no signs of infection. Neurological: Alert and oriented x0. Not following commands. moving all extremiteis H&P: Results Labs Labs: Short CBC 04/30/24 Range/Units 20:59 WBC 7.1 (4.5-10.0) K/mm3 Hgb 12.2 (12.0-15.0) g/dL Hct 38.6 (37.0-47.0) % Plt Count 152 (150-375) k/mm3 BMP 04/30/24 21:58 Sodium 140 Potassium 5.4 H Chloride 108 H Carbon Dioxide 17 L BUN 59 H D Creatinine 2.50 H Glucose 109 Calcium 9.7 Liver Function 04/30/24 Range/Units 21:58 Total Bilirubin 1.1 (0.2-1.3) mg/dL AST 565 H (14-36) U/L ALT 408 H (6-35) U/L Alkaline Phosphatase 122 (38-126) U/L Albumin 3.9 (3.5-5.1) g/dL Urine 04/30/24 Range/Units 21:45 Urine Color Dark yellow (Yellow) Urine Appearance Cloudy H (Clear) Urine pH 5.0 (5.0-9.0) Ur Specific [place] 1.023 (1.001-1.035) Urine Protein 2+ H (Negative) mg/dL Urine Glucose (UA) Negative (Negative) mg/dL Assessment and Plan Assessment and plan (1) Acute delirium: Code(s): R41.0 - Disorientation, unspecified Status: Acute (2) Dehydration: Code(s): E86.0 - Dehydration Status: Acute (3) High anion gap metabolic acidosis: Code(s): E87.29 - Other acidosis Status: Acute (4) Acute kidney injury: Code(s): N17.9 - Acute kidney failure, unspecified Status: Acute (5) Diarrhea: Code(s): R19.7 - Diarrhea, unspecified Status: Acute (6) Transaminitis: Code(s): R74.01 - Elevation of levels of liver transaminase levels Status: Acute (7) Dementia: Code(s): F03.90 - Unspecified dementia, unspecified severity, without behavioral disturbance, psychotic disturbance, mood disturbance, and anxiety Status: Acute (8) Hypothyroidism: Code(s): E03.9 - Hypothyroidism, unspecified Status: Acute (9) CAD (coronary artery disease): Qualifiers: Coronary Disease-Associated Artery/Lesion type: unspecified vessel or lesion type Code(s): I25.10 - Atherosclerotic heart disease of [place] coronary artery without angina pectoris Status: Acute (10) Atrial fibrillation: Code(s): I48.91 - Unspecified atrial fibrillation Status: Acute (11) Heart failure with preserved ejection fraction: Code(s): I50.30 - Unspecified diastolic (congestive) heart failure Status: Acute (12) HTN (hypertension): Code(s): I10 - Essential (primary) hypertension Status: Acute (13) Acute hyperkalemia: Code(s): E87.5 - Hyperkalemia Status: Acute Plan Patient is a 88-year-old female who presents to the emergency department this evening due to concern for altered mental status. Patient's daughter reported that since Sunday for the past 3 days patient has been having these intermittent episodes of agitation and seems to be a bit more altered. Daughter states that today was the worst episode of the past 3 days. Patient does have a history of chronic arthritis and does take hydrocodone daily. When EMS arrived, patient was minimally responsive and secondary to this patient was administered Narcan 1 mg. Upon arrival to our emergency department, patient appeared deliriious and agitated, moving all 4 extremities spontaneously, and continues to moan. Daughter states that this is likely secondary to the Narcan as she needs her narcotics to make it through her arthritis pain. Patient was also hypotensive. Patient had multiple episodes of diarrhea in the ED. iv fluid received in the ED. EKG with atrial fibrillation at the rate of 84. Laboratory evaluation revealed lactic acid of 5.1 potassium of 5.4 anion gap of 15 BUN 59 creatinine was 2.5 which is elevated from baseline of 1.1 transaminitis with AST of 565 ALT of 4 hallucis revealed no UTI. Blood pressure improved with resuscitation CT brain with no acute process. Chest x-ray with left lower lobe pneumonia IV antibiotics was started. CT abdomen pelvis revealed thickening of the rectum otherwise unremarkable. patient currently agitated and confused, does not folow much commands. awake and alert but confused. rest of the history coudl not be obtained due to her medical condition. Metabolic acidosis with lactic acidosis noted unclear source. Treat for possible pneumonia.Possible UTI. Possible colitis with diarrhea check C. difficile. She answers consultation Acute kidney injuryOn chronic kidney disease stage III IV fluid resuscitation. Renal consultation. No Hydronephrosis seen on CT Recent stercoral colitis eelvated lvier enzymes: unclear etiology. us liver planned History of heart failure with preserved ejection fraction Cautious IV hydration History of stroke nonverbal status per record Hypertension Hold blood pressure medication Coronary artery disease HypothyroidismCheck TSH DVT prophylaxis eliquis to be continued CODE STATUS full code Hospitalist MIPS Advance Care Plan I have confirmed that the patient's Advanced Care Plan is present, code status is documented, or surrogate decision maker is listed in patient medical record.: Yes Medication Reconciliation I have utilized all available resources to obtain, update and review the patients current medications (includes all prescriptions, OTC, herbals, cannabis, and nutritional supplements).: Yes
[2024-05-01 09:50] LABS: Ammonia < 9 umol/L (9-30)
[2024-05-01 10:03] LABS: Lactic Acid Reflex 4.9 mmol/L (0.7-2.0)
[2024-05-01 10:07] LABS: Basophils Percent Auto 0.1 % (0.2-1.2); Hematocrit 37.8 % (37.0-47.0); Hemoglobin 11.8 g/dL (12.0-15.0); Immature Granulocyte Absolute 0.05 K/mm3 (0.00-0.031); Immature Granulocyte Percent A 0.6 % (0-0.5); Lymphocytes Absolute Auto 0.49 K/mm3 (0.9-3.2); Lymphocytes Percent Auto 5.5 % (18.3-44.2); Mean Corpuscular HGB Conc 31.2 g/dl (32-36); Mean Corpuscular Hemoglobin 35.5 pg (26-34); Mean Corpuscular Volume 113.9 fl (80-100); Mean Platelet Volume 12.5 fl (7.4-10.4); Monocytes Absolute Auto 0.5 K/mm3 (0.1-0.6); Monocytes Percent Auto 5.8 % (2.6-8.5); Neutrophils Absolute Auto 7.9 K/mm3 (1.3-6.7); Nucleated Red Blood Cells Perc 1.8 % (0.0-0.2); Platelet Count Result 155 k/mm3 (150-375); Red Blood Count 3.32 M/mm3 (4.2-5.4); Red Cell Distribution Width 17.1 % (11.5-14.5)
[2024-05-01] MEDS: APIXABAN 2.5 MG TABLET PO ×2 (10:41→17:43)
[2024-05-01] MEDS: ATORVASTATIN 40 MG TABLET PO (10:41)
[2024-05-01] MEDS: LEVOTHYROXINE SODIUM 150 MCG TABLET PO (10:41)
[2024-05-01] MEDS: DOCUSATE SODIUM 100 MG CAPSULE PO ×2 (10:41→17:43)
[2024-05-01] MEDS: DOXYCYCLINE 100 MG/NS 100 ML 100 MG/100 ML BAG IVPB ×2 (10:42→20:58)
[2024-05-01] MEDS: HYDROcodone/acetaminophen (*CRX) 10-325 MG TABLET 1 TAB PO ×2 (10:53→17:47)
[2024-05-01] MEDS: SODIUM CHLORIDE 0.9% IV 1,000 ML 75 ML IV CONT (11:00)
[2024-05-01] MEDS: metroNIDAZOLE 500 MG/ISO 100ML 500 MG/100 ML BAG 100 MG IVPB ×2 (11:00→17:42)
[2024-05-01 11:43] LABS: Anisocytosis 1+; Burr Cells 1+; Macrocytosis 1+ (NORMAL); Platelet Estimate Adequate (Adequate); Schistocytes Rare
[2024-05-01 12:41] LABS: Reflex Lactic Acid Yes or No Add Lactic
[2024-05-01 12:48] LABS: Alanine Aminotransferase 493 U/L (6-35); Albumin Level 3.5 g/dL (3.5-5.1); Alkaline Phosphatase 120 U/L (38-126); Anion Gap 12 mmol/L (4-12); Aspartate Amino Transferase 605 U/L (14-36); Bilirubin,Total 1.1 mg/dL (0.2-1.3); Blood Urea Nitrogen 60 mg/dL (7-17); Calcium 9.2 mg/dL (8.4-10.2); Carbon Dioxide 14 mmol/L (22-30); Chloride 112 mmol/L (98-107); Estimated CRCL calculation 12 ml/min; Estimated Glomerular Filt Rate 20; Glucose 78 mg/dL (65-110); Potassium 5.9 mmol/L (3.4-5.0); Sodium 138 mmol/L (137-145)
[2024-05-01 12:49] LABS: Magnesium 2.1 mg/dL (1.6-2.3)
[2024-05-01] MEDS: ALBUTEROL SULFATE NEB 2.5 MG/3 ML INH INHALATION (13:24)
[2024-05-01] MEDS: SODIUM BICARBONATE 8.4% 150 MEQ in DEXTROSE 5% 1,000 ML 950 ML 50 MEQ IV CONT (13:34)
[2024-05-01] MEDS: TRIAMCINOLONE ACET 0.1% CREAM 15 GM TUBE 1 APPLIC TOPICAL ×2 (13:43→17:43)
[2024-05-01] MEDS: CALCIUM GLUC 1,000 MG/NS 50 ML 1,000 MG/50 ML BAG 100 MG IVPB (13:49)
[2024-05-01] MEDS: SODIUM ZIRCONIUM CYCLOSILICATE 10 GM POWD.PACK PO ×2 (14:02→20:58)
[2024-05-01 14:09] LABS: Lactic Acid 4.2 mmol/L (0.7-2.0)
[2024-05-01] MEDS: INSULIN HUMAN REGULAR (*BKC) 100 UNITS/ML IV PUSH (14:29)
[2024-05-01] MEDS: DEXTROSE 50% 25 GM/50 ML SYRINGE IV PUSH (14:30)
[2024-05-01 14:38] LABS: Glucose Point of Care 97 mg/dl (65-105)
--- NOTE | 2024-05-01 14:44 | PC.NURSE ---
Pt was given calcium gluconate, IV dextrose and IV insulin to attempt to lower potassium. Pt blood sugar was 97 and will be re-checked in one hour. Labs to be rechecked and pt continues to be monitored closely.
[2024-05-01 15:43] LABS: Glucose Point of Care 173 mg/dl (65-105)
[2024-05-01 18:12] LABS: Anion Gap 10 mmol/L (4-12); Blood Urea Nitrogen 59 mg/dL (7-17); Calcium 9.7 mg/dL (8.4-10.2); Carbon Dioxide 19 mmol/L (22-30); Chloride 111 mmol/L (98-107); Estimated CRCL calculation 13 ml/min; Estimated Glomerular Filt Rate 21; Glucose 123 mg/dL (65-110); Potassium 5.3 mmol/L (3.4-5.0); Sodium 140 mmol/L (137-145)
[2024-05-01 20:08] LABS: Free T4 Free Thyroxine Reflex 1.83 ng/dL (0.78-2.19)
[2024-05-01] MEDS: traZODone HCL 50 MG TABLET 100 MG PO (20:58)
[2024-05-01] MEDS: IPRATROPIUM 0.5 MG/ALBUTEROL SULFATE 2.5 MG AMPUL.NEB 3 ML INHALATION (21:12)
[2024-05-01 21:23] LABS: Total Triiodothyronine (T3) 0.66 NG/ML (0.97-1.69)
[2024-05-02] VITALS (27 sets, daily range): BP systolic 92–124; BP diastolic 58–90; PULSE 80–123; RESP 18–20; TEMP 34.7–36.2; O2SAT 94–100; BMI 24.7
[2024-05-02] MEDS: metroNIDAZOLE 500 MG/ISO 100ML 500 MG/100 ML BAG 100 MG IVPB ×3 (02:15→18:43)
[2024-05-02] MEDS: IPRATROPIUM 0.5 MG/ALBUTEROL SULFATE 2.5 MG AMPUL.NEB 3 ML INHALATION ×4 (02:35→20:26)
[2024-05-02] MEDS: HYDROmorphone HCL INJ (*CRX) 1 MG/ML SYR IV PUSH (03:15)
[2024-05-02] MEDS: HYDROcodone/acetaminophen (*CRX) 10-325 MG TABLET 1 TAB PO ×3 (06:11→17:21)
[2024-05-02 07:04] LABS: Hematocrit 38.4 % (37.0-47.0); Mean Corpuscular HGB Conc 31.3 g/dl (32-36); Mean Corpuscular Hemoglobin 34.4 pg (26-34); Mean Platelet Volume 12.3 fl (7.4-10.4); Platelet Count Result 168 k/mm3 (150-375); Red Blood Count 3.49 M/mm3 (4.2-5.4); White Blood Count 10.3 K/mm3 (4.5-10.0)
[2024-05-02 07:26] LABS: Alanine Aminotransferase 614 U/L (6-35); Albumin Level 3.4 g/dL (3.5-5.1); Alkaline Phosphatase 124 U/L (38-126); Anion Gap 10 mmol/L (4-12); Bilirubin,Total 0.8 mg/dL (0.2-1.3); Blood Urea Nitrogen 63 mg/dL (7-17); Calcium 9.3 mg/dL (8.4-10.2); Carbon Dioxide 21 mmol/L (22-30); Chloride 110 mmol/L (98-107); Estimated CRCL calculation 13 ml/min; Estimated Glomerular Filt Rate 21; Glucose 100 mg/dL (65-110); Potassium 4.8 mmol/L (3.4-5.0); Sodium 141 mmol/L (137-145)
[2024-05-02 07:32] LABS: Aspartate Amino Transferase 782 U/L (14-36)
[2024-05-02] MEDS: APIXABAN 2.5 MG TABLET PO ×2 (08:55→17:15)
[2024-05-02] MEDS: DOCUSATE SODIUM 100 MG CAPSULE PO ×2 (08:55→17:15)
[2024-05-02] MEDS: ATORVASTATIN 40 MG TABLET PO (08:55)
[2024-05-02] MEDS: DOXYCYCLINE 100 MG/NS 100 ML 100 MG/100 ML BAG IVPB ×2 (08:58→20:51)
[2024-05-02] MEDS: VANCOMYCIN 1,000 MG/NS 250 ML 1,000 MG/250 ML BAG 250 MG IVPB (09:00)
[2024-05-02] MEDS: TRIAMCINOLONE ACET 0.1% CREAM 15 GM TUBE 1 APPLIC TOPICAL ×2 (09:02→17:29)
--- NOTE | 2024-05-02 11:27 | PM.CNNEP ---
Assessment and Plan Assessment and plan (1) Stage 3b chronic kidney disease: Code(s): N18.32 - Chronic kidney disease, stage 3b Status: Acute Assessment and Plan: The patient has chronic kidney disease. Most likely related to vascular disease and hypertension. (2) Acute kidney injury: Code(s): N17.9 - Acute kidney failure, unspecified Status: Acute Assessment and Plan: The patient has a newly high creatinine. She appears dehydrated on exam. She is getting treated with IV fluids. The patient has a pure Wick to collect urine but very little urine output. Nursing says that she had over 500cc in her bladder. So will place a catheter. She also has pyuria and suspicious chest x-ray submit pneumonia question She is getting antibiotics. Rhabdo is always a possibility as well. Other causes of renal failure earlier include obstruction, glomerulonephritis, interstitial nephritis, vascular disease these are all low likelihood. To evaluate will get a renal ultrasound, urine electrolytes, fractional excretion of urea, CPK. Continue IV fluids and antibiotics. Await culture results. (3) Pyuria: Code(s): R82.81 - Pyuria Status: Acute Assessment and Plan: Urine cultures are pending. She is on ceftriaxone and vancomycin. (4) HTN (hypertension): Code(s): I10 - Essential (primary) hypertension Status: Acute Assessment and Plan: The patient has hypertension but her blood pressure was low in the emergency room. Antihypertensives are on hold (5) Acute hyperkalemia: Code(s): E87.5 - Hyperkalemia Status: Acute Assessment and Plan: Potassium was high on admission. This was treated and is now normal. It was likely due to the acute kidney injury (6) Metabolic acidosis: Code(s): E87.20 - Acidosis, unspecified Status: Acute Assessment and Plan: The patient had metabolic acidosis. CO2 was 17. Anion gap is 15. Delta anion gap is 9 and delta bicarb is 6 to 9. Lactic acid was 4. I believe this is probably metabolic acidosis from her worsened kidney function since plus her lactic acidosis. Her bicarbonate level is improving now. Will check a lactate tomorrow History of Present Illness Reason for Consult Consult date: 05/02/24 Chief Complaint Chief complaint: Dehydration, Acute kidney injury, On gap metabolic History of Present Illness Narrative: Esperanza is a very pleasant 82-year-old lady who has multiple medical problems including senile dementia of the Alzheimer's type, stroke, coronary disease, diastolic dysfunction, atrial fibrillation, hypertension, stage IIIB chronic kidney disease, arthritis, hypothyroidism, hyperlipidemia, and chronic pain. The patient has had chronic kidney disease for a long time, many years. She was seen by Dr. Gore as an outpatient. Her baseline creatinine was 1 point 4-2.2 P patient was assumed to have chronic kidney disease from hypertension and vascular disease. The next time she had blood work drawn was in March while she was an inpatient and her creatinine ranged from 1 point 0.4. Apparently the patient lives at home with her daughter. She has been having intermittent for the last 3 days. Things were getting worse so she brought her to the emergency room the patient was given some Narcan because she takes hydrocodone. Apparently she became more agitated but did not really improve much with the Narcan. Evaluation revealed a higher folic acidosis, constipation, UTI, hypotension, and dehydration the patient was admitted and given some IV fluids. Her creatinine was 2.5 on admission 2.2 this morning Patient cannot give a history. She is nonverbal. She does not follow commands but she is awake and often cries out in pain. Review of Systems Constitutional: Constitutional: Reports no additional constitutional complaints Eyes: Eyes: Reports no additional eye complaints ENT: Reports system reviewed and no additional complaints, except as documented Cardiovascular: Cardiovascular: Reports no additional cardiovascular complaints Respiratory: Respiratory: Reports no additional respiratory complaints Gastrointestinal: Gastrointestinal: Reports no additional gastrointestinal complaints Genitourinary: Genitourinary: Reports no additional female genitourinary complaints Musculoskeletal: Musculoskeletal: Reports no additional musculoskeletal complaints Integumentary/Breasts: Skin/Breast: Reports system reviewed and no additional complaints, except as docu Neurologic: Reports system reviewed and no additional complaints, except as documented Psychiatric: Psychiatric: Reports no additional psychiatric complaints Endocrine: Endocrine: Reports no additional endocrine complaints [facility] Past Medical History Medical History Atrial fibrillation CAD (coronary artery disease) Chronic pain Dementia Dyslipidemia Eczematous dermatitis Heart failure with preserved ejection fraction HTN (hypertension) Hx of completed stroke Hypothyroidism Inflammatory arthritis Osteoarthritis Stage 3b chronic kidney disease Surgical History Surgical History History of hip replacement History of hysterectomy History of spinal surgery Family History Family History Father Hypertension Cerebrovascular accident Mother Hypertension Social History Social History Smoking status: Unknown if ever smoked Alcohol intake: unknown Substance use: never Substance use type: does not use Do You Feel Safe in your Home?: Yes Lack of Transportation: No Lack of Food: Never True Current Housing: I Have Housing Concerned About Future Housing: No Difficulty Paying Gas/Electric Bills: No Difficulty Paying for Meds: No Currently Unemployed: No Education: Master's Degree or Higher Difficulty w/ Childcare or Family Care: No Living arrangements: with family Gender identity (if verbalized by the patient): Female Sexual Orientation (if Verbalized by the Patient): Straight or Heterosexual Spiritual care concerns: No Meds Home Medications and Allergies Home Medications Medication Instructions Recorded Confirmed Type furosemide 20 mg tablet 20 mg PO QAM #90 tabs 03/15/24 05/01/24 Rx apixaban 2.5 mg tablet (Eliquis) 2.5 mg PO BID 04/05/24 05/01/24 History atorvastatin 40 mg tablet 40 mg PO DAILY 04/05/24 05/01/24 History docusate sodium 100 mg capsule 100 mg PO BID #60 caps 04/07/24 05/01/24 Rx (Colace) polyethylene glycol 3350 17 17 g PO BID #119 grams 04/07/24 05/01/24 Rx gram/dose oral powder (Miralax) sennosides 8.6 mg capsule (senna) 8.6 mg PO DAILY #30 caps 04/07/24 05/01/24 Rx metoprolol tartrate 75 mg tablet 75 mg PO BID #180 tabs 04/09/24 05/01/24 Rx levothyroxine 150 mcg tablet 150 mcg PO DAILY #90 tabs 04/10/24 05/01/24 Rx triamcinolone acetonide 0.1 % 1 applic topical BID #453.6 grams 04/14/24 05/01/24 Rx topical cream hydrocodone 10 mg-acetaminophen 1 tablet PO QID PRN pain #120 tabs 04/22/24 05/01/24 Rx 325 mg tablet lisinopril 5 mg tablet 5 mg PO DAILY #90 tabs 04/23/24 05/01/24 Rx trazodone 100 mg tablet 100 mg PO QHS #90 tabs 04/23/24 05/01/24 Rx Allergies Allergy/AdvReac Type Severity Reaction Status Date / Time iodine Allergy Unknown Verified 05/01/24 04:01 Penicillins Allergy Unknown Verified 05/01/24 04:01 contrast dye Allergy Other Uncoded 05/01/24 04:01 Vital Signs Vital Signs - 24 hr 05/01/24 13:24 05/01/24 13:24 05/01/24 13:31 Temperature Pulse Rate 104 H 107 H Respiratory Rate 22 H 22 H Blood Pressure Pulse Oximetry 95 Oxygen Delivery Room Air Fraction of Inspired Oxygen 21 05/01/24 14:00 05/01/24 16:00 05/01/24 21:16 Temperature 96.8 F L Pulse Rate 94 73 98 Respiratory Rate 18 18 Blood Pressure 120/80 Pulse Oximetry 92 Oxygen Delivery Fraction of Inspired Oxygen 05/01/24 21:21 05/01/24 20:00 05/01/24 22:00 Temperature 97.6 F Pulse Rate 103 H 83 Respiratory Rate 16 Blood Pressure 135/62 Pulse Oximetry 98 Oxygen Delivery Room Air Fraction of Inspired Oxygen 05/01/24 20:00 05/02/24 00:00 05/02/24 02:35 Temperature Pulse Rate 77 86 101 H Respiratory Rate 18 Blood Pressure Pulse Oximetry Oxygen Delivery Fraction of Inspired Oxygen 05/02/24 02:42 05/02/24 04:00 05/02/24 05:20 Temperature 97.2 F L Pulse Rate 102 H 85 103 H Respiratory Rate 20 20 Blood Pressure 124/90 Pulse Oximetry 96 Oxygen Delivery Fraction of Inspired Oxygen 05/02/24 08:32 05/02/24 08:40 Temperature Pulse Rate 103 H 104 H Respiratory Rate 20 20 Blood Pressure Pulse Oximetry Oxygen Delivery Fraction of Inspired Oxygen Exam Narrative: Exam Narrative: Well developed well-nourished female in no acute distress at baseline but does cry out in pain intermittently. Skin is warm and dry without rash Head normocephalic atraumatic Eyes normal sclerae and conjunctivae Mouth normal lips teeth and gums. Mucous membranes are dry. Neck no nodes no thyromegaly no carotid bruits Axillae no nodes Back no CVA tenderness Lungs symmetric and clear to auscultation and percussion Heart normal rate, irregularly irregular rhythm. Without rub or gallop Abdomen bowel sounds positive soft nontender, no HSM, masses, or bruits. Extremities no cyanosis, clubbing, or edema Pulses 2+ equal in radial arteries Psychological not anxious or depressed Neuro alert and oriented x3 motor 5/5 cranial nerves 2-12 intact reflexes 2+ and equal in the biceps and patellar tendons cerebellar normal rapid alternating movements Results Lab Results 05/02/24 06:57 05/02/24 06:57 Lab results: Most recent lab results Calcium 9.3 mg/dL (8.4-10.2) 05/02/24 06:57 Magnesium 2.1 mg/dL (1.6-2.3) 05/01/24 12:25
[2024-05-02 12:56] LABS: Creatine Kinase 150 U/L (30-135)
--- NOTE | 2024-05-02 13:35 | PM.CNGS ---
Assessment and Plan Assessment and plan (1) Metabolic acidosis: Code(s): E87.20 - Acidosis, unspecified Status: Acute Assessment and Plan: I reviewed the CT and evaluated the patient. She was noted to have an elevated lactate level, but this appears to be likely related to her dehydration and acute renal failure. Her ultrasound also shows some signs of cirrhosis which could be contributing. I do not see an obvious abdominal source for this, but the CT was done without contrast which will limit the sensitivity for ischemic changes. The patient is elderly and has multiple comorbidities which would make any surgical intervention extremely high risk. Would recommend continued to supportive care and medical treatment at this time. No surgical intervention recommended. Continue bowel regimen including stool softeners or laxatives to prevent recurrent stercoral colitis. Will follow as needed. (2) Dehydration: Code(s): E86.0 - Dehydration Status: Acute (3) Acute kidney injury: Code(s): N17.9 - Acute kidney failure, unspecified Status: Acute (4) Acute delirium: Code(s): R41.0 - Disorientation, unspecified Status: Acute (5) Atrial fibrillation: Code(s): I48.91 - Unspecified atrial fibrillation Status: Acute History of Present Illness Consult details Consult date: 05/02/24 Reason for consult: other (Lactic acidosis) Narrative: This is an 88-year-old woman who I am asked to see for lactic acidosis. She was admitted to the hospital with mental status changes and during her workup in the emergency department she was noted to have an elevated lactate level. 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 She is not able to give much history due to mental status changes. Chart is reviewed to obtain further history. Patient does not seem to be complaining of much abdominal pain and is on a regular diet. A CT without contrast was obtained in the emergency department which did not appear to show any significant abnormalities. Review of Systems Review of Systems: ROS unobtainable: Yes unobtainable due to medical condition and unobtainable due to mental status PMFSH Past Medical History Medical History Atrial fibrillation CAD (coronary artery disease) Chronic pain Dementia Dyslipidemia Eczematous dermatitis Heart failure with preserved ejection fraction HTN (hypertension) Hx of completed stroke Hypothyroidism Inflammatory arthritis Osteoarthritis Stage 3b chronic kidney disease Surgical History Surgical History History of hip replacement History of hysterectomy History of spinal surgery Family History Family History Father Hypertension Cerebrovascular accident Mother Hypertension Social History Social History Smoking status: Unknown if ever smoked Alcohol intake: unknown Substance use: never Substance use type: does not use Do You Feel Safe in your Home?: Yes Lack of Transportation: No Lack of Food: Never True Current Housing: I Have Housing Concerned About Future Housing: No Difficulty Paying Gas/Electric Bills: No Difficulty Paying for Meds: No Currently Unemployed: No Education: Master's Degree or Higher Difficulty w/ Childcare or Family Care: No Living arrangements: with family Gender identity (if verbalized by the patient): Female Sexual Orientation (if Verbalized by the Patient): Straight or Heterosexual Spiritual care concerns: No Meds Home Medications and Allergies Home Medications Medication Instructions Recorded Confirmed Type furosemide 20 mg tablet 20 mg PO QAM #90 tabs 03/15/24 05/01/24 Rx apixaban 2.5 mg tablet (Eliquis) 2.5 mg PO BID 04/05/24 05/01/24 History atorvastatin 40 mg tablet 40 mg PO DAILY 04/05/24 05/01/24 History docusate sodium 100 mg capsule 100 mg PO BID #60 caps 04/07/24 05/01/24 Rx (Colace) polyethylene glycol 3350 17 17 g PO BID #119 grams 04/07/24 05/01/24 Rx gram/dose oral powder (Miralax) sennosides 8.6 mg capsule (senna) 8.6 mg PO DAILY #30 caps 04/07/24 05/01/24 Rx metoprolol tartrate 75 mg tablet 75 mg PO BID #180 tabs 04/09/24 05/01/24 Rx levothyroxine 150 mcg tablet 150 mcg PO DAILY #90 tabs 04/10/24 05/01/24 Rx triamcinolone acetonide 0.1 % 1 applic topical BID #453.6 grams 04/14/24 05/01/24 Rx topical cream hydrocodone 10 mg-acetaminophen 1 tablet PO QID PRN pain #120 tabs 04/22/24 05/01/24 Rx 325 mg tablet lisinopril 5 mg tablet 5 mg PO DAILY #90 tabs 04/23/24 05/01/24 Rx trazodone 100 mg tablet 100 mg PO QHS #90 tabs 04/23/24 05/01/24 Rx Allergies Allergy/AdvReac Type Severity Reaction Status Date / Time iodine Allergy Unknown Verified 05/01/24 04:01 Penicillins Allergy Unknown Verified 05/01/24 04:01 contrast dye Allergy Other Uncoded 05/01/24 04:01 Vital Signs Vital Signs - 24 hr 05/01/24 14:00 05/01/24 16:00 05/01/24 21:16 Temperature 36.0 C L Pulse Rate 94 73 98 Respiratory Rate 18 18 Blood Pressure 120/80 Pulse Oximetry 92 Oxygen Delivery 05/01/24 21:21 05/01/24 20:00 05/01/24 22:00 Temperature 36.4 C Pulse Rate 103 H 83 Respiratory Rate 16 Blood Pressure 135/62 Pulse Oximetry 98 Oxygen Delivery Room Air 05/01/24 20:00 05/02/24 00:00 05/02/24 02:35 Temperature Pulse Rate 77 86 101 H Respiratory Rate 18 Blood Pressure Pulse Oximetry Oxygen Delivery 05/02/24 02:42 05/02/24 04:00 05/02/24 05:20 Temperature 36.2 C L Pulse Rate 102 H 85 103 H Respiratory Rate 20 20 Blood Pressure 124/90 Pulse Oximetry 96 Oxygen Delivery 05/02/24 08:32 05/02/24 08:40 Temperature Pulse Rate 103 H 104 H Respiratory Rate 20 20 Blood Pressure Pulse Oximetry Oxygen Delivery Exam Const: General: average body habitus Nutritional Appearance: average body habitus Limitations: altered mental status HENMT: Head: normal to inspection, normocephalic and atraumatic Ears: external ears normal Face/Nose/Sinus: Normal external nose present and Normal nares present Mouth: Yes Normal oral and palatal mucosa present Eyes: Periorbital: periorbital findings normal Eyelids: eyelids normal Conjunctivae: conjunctivae normal Sclera: sclerae normal Neck: Neck: normal visual inspection, no lymphadenopathy, trachea midline, supple and no JVD Resp: Effort & Inspection: symmetric chest movement Auscultation: clear to auscultation bilaterally Percussion: percussion normal Cardio: Rate: regular rate Rhythm: abnormal rhythm irregularly irregular Heart sounds: S1 normal heart sound present and S2 normal heart sound present Peripheral pulses: Peripheral pulses 2+ throughout GI: Inspection: non-distended GI Palp: Yes Soft to palpation, No Tenderness to palpation present (GI), No Guarding due to palpation present (GI) and No Rebound tenderness present Percussion: Yes normal to percussion Auscultation: normal bowel sounds Neuro: General: patient obtunded, Unable to assess gait and other ( unable to perform full neuro exam due to intubation and sedation) Gait exam (Neuro): Unable to assess gait Extrem: General: no pedal edema Right upper extremity: normal to inspection Left upper extremity: normal to inspection Results Labs 05/02/24 06:57 05/02/24 06:57 Labs: Abnormal lab results 05/01/24 05/01/24 05/01/24 Range/Units 13:24 15:39 17:38 WBC (4.5-10.0) K/mm3 RBC (4.2-5.4) M/mm3 MCV (80-100) fl MCH (26-34) pg MCHC (32-36) g/dl RDW (11.5-14.5) % MPV (7.4-10.4) fl Potassium 5.3 H (3.4-5.0) mmol/L Chloride 111 H (98-107) mmol/L Carbon Dioxide 19 L (22-30) mmol/L BUN 59 H (7-17) mg/dL Creatinine 2.20 H (0.7-1.0) mg/dL Estimated GFR 21 L (59 - ) Glucose 123 H (65-110) mg/dL POC Capillary Glucose 173 H (65-105) mg/dl Lactic Acid 4.2 H* (0.7-2.0) mmol/L AST (14-36) U/L ALT (6-35) U/L Total Creatine Kinase (30-135) U/L Total Protein (6.3-8.2) g/dL Albumin (3.5-5.1) g/dL TSH (Reflex) 47.000 H (0.465-4.68) uIU/mL Total T3 0.66 L (0.97-1.69) NG/ML 05/02/24 Range/Units 06:57 WBC 10.3 H (4.5-10.0) K/mm3 RBC 3.49 L (4.2-5.4) M/mm3 MCV 110.0 H (80-100) fl MCH 34.4 H (26-34) pg MCHC 31.3 L (32-36) g/dl RDW 17.0 H (11.5-14.5) % MPV 12.3 H (7.4-10.4) fl Potassium (3.4-5.0) mmol/L Chloride 110 H (98-107) mmol/L Carbon Dioxide 21 L (22-30) mmol/L BUN 63 H (7-17) mg/dL Creatinine 2.20 H (0.7-1.0) mg/dL Estimated GFR 21 L (59 - ) Glucose (65-110) mg/dL POC Capillary Glucose (65-105) mg/dl Lactic Acid (0.7-2.0) mmol/L AST 782 H (14-36) U/L ALT 614 H (6-35) U/L Total Creatine Kinase 150 H (30-135) U/L Total Protein 6.0 L (6.3-8.2) g/dL Albumin 3.4 L (3.5-5.1) g/dL TSH (Reflex) (0.465-4.68) uIU/mL Total T3 (0.97-1.69) NG/ML Diabetes panel 05/01/24 05/02/24 Range/Units 17:38 06:57 Sodium 140 141 (137-145) mmol/L Potassium 5.3 H 4.8 (3.4-5.0) mmol/L Chloride 111 H 110 H (98-107) mmol/L Carbon Dioxide 19 L 21 L (22-30) mmol/L BUN 59 H 63 H (7-17) mg/dL Creatinine 2.20 H 2.20 H (0.7-1.0) mg/dL Glucose 123 H 100 (65-110) mg/dL Calcium 9.7 9.3 (8.4-10.2) mg/dL AST 782 H (14-36) U/L ALT 614 H (6-35) U/L Alkaline Phosphatase 124 (38-126) U/L Total Protein 6.0 L (6.3-8.2) g/dL Albumin 3.4 L (3.5-5.1) g/dL Calcium panel 05/01/24 05/02/24 Range/Units 17:38 06:57 Calcium 9.7 9.3 (8.4-10.2) mg/dL Albumin 3.4 L (3.5-5.1) g/dL Pituitary panel 05/01/24 05/02/24 Range/Units 17:38 06:57 Sodium 140 141 (137-145) mmol/L Potassium 5.3 H 4.8 (3.4-5.0) mmol/L Chloride 111 H 110 H (98-107) mmol/L Carbon Dioxide 19 L 21 L (22-30) mmol/L BUN 59 H 63 H (7-17) mg/dL Creatinine 2.20 H 2.20 H (0.7-1.0) mg/dL Glucose 123 H 100 (65-110) mg/dL Calcium 9.7 9.3 (8.4-10.2) mg/dL Total T3 0.66 L (0.97-1.69) NG/ML Adrenal panel 05/01/24 05/02/24 Range/Units 17:38 06:57 Sodium 140 141 (137-145) mmol/L Potassium 5.3 H 4.8 (3.4-5.0) mmol/L Chloride 111 H 110 H (98-107) mmol/L Carbon Dioxide 19 L 21 L (22-30) mmol/L BUN 59 H 63 H (7-17) mg/dL Creatinine 2.20 H 2.20 H (0.7-1.0) mg/dL Glucose 123 H 100 (65-110) mg/dL Calcium 9.7 9.3 (8.4-10.2) mg/dL Total Bilirubin 0.8 (0.2-1.3) mg/dL AST 782 H (14-36) U/L ALT 614 H (6-35) U/L Alkaline Phosphatase 124 (38-126) U/L Total Protein 6.0 L (6.3-8.2) g/dL Albumin 3.4 L (3.5-5.1) g/dL All other labs normal. Imaging Additional studies: ITS Impressions Head CT 04/30/24 20:28 IMPRESSION: No acute intracranial findings. 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 Chest X-Ray 04/30/24 22:12 IMPRESSION: Cardiomegaly with congestive elizabeth. Right basal pneumonia with possible effusion. Possible atelectasis versus pneumonia in the left lung base. Abdomen/Pelvis CT 04/30/24 23:26 IMPRESSION: 1. Bilateral moderate pleural effusion with bilateral atelectatic changes. Cardiomegaly. 2. No evidence of obstruction. 3. Minimal fluid in the pelvis. 4. Thickened wall of the rectum. Clinical evaluation advised. Upper Quadrant Ultrasound 05/01/24 09:07 IMPRESSION: 1: Nodular liver surface, compatible with cirrhosis. Trace ascites. 2: Mild biliary dilatation.
[2024-05-02 14:30] LABS: Alveolar/Arterial O2 Gradient 312.9 mmHg; Base Excess ABG -6.6 mEq/l (+/-2.0); Fractional Inspired Oxygen 100 %; Oxygen Content ABG 18.4 %vol (16.0-22.0); Oxygen Saturation ABG 99.7 % (95.0-100.0); Oxyhemoglobin 99.3 % THb (90.0-100.0); PCO2 ABG 44.1 mmHg (35.0-45.0); PO2 FiO2 Ratio Arterial Blood 3.56 %; Total Hemoglobin 12.5 g/dL (12.0-18.0)
[2024-05-02 14:31] LABS: Device NON-REBREATHER MASK; Site Drawn RIGHT BRACHIAL; pH ABG 7.275 (7.350-7.450)
[2024-05-02 14:38] LABS: Glucose Point of Care 110 mg/dl (65-105)
--- NOTE | 2024-05-02 14:42 | PM.IMPN ---
Progress Note: A&P Assessment and Plan (1) Acute delirium: Code(s): R41.0 - Disorientation, unspecified Status: Acute (2) Dehydration: Code(s): E86.0 - Dehydration Status: Acute (3) High anion gap metabolic acidosis: Code(s): E87.29 - Other acidosis Status: Acute (4) Acute kidney injury: Code(s): N17.9 - Acute kidney failure, unspecified Status: Acute (5) Diarrhea: Code(s): R19.7 - Diarrhea, unspecified Status: Acute (6) Transaminitis: Code(s): R74.01 - Elevation of levels of liver transaminase levels Status: Acute (7) Dementia: Code(s): F03.90 - Unspecified dementia, unspecified severity, without behavioral disturbance, psychotic disturbance, mood disturbance, and anxiety Status: Acute (8) Hypothyroidism: Code(s): E03.9 - Hypothyroidism, unspecified Status: Acute (9) CAD (coronary artery disease): Qualifiers: Coronary Disease-Associated Artery/Lesion type: unspecified vessel or lesion type Code(s): I25.10 - Atherosclerotic heart disease of [place] coronary artery without angina pectoris Status: Acute (10) Atrial fibrillation: Code(s): I48.91 - Unspecified atrial fibrillation Status: Acute (11) Heart failure with preserved ejection fraction: Code(s): I50.30 - Unspecified diastolic (congestive) heart failure Status: Acute (12) HTN (hypertension): Code(s): I10 - Essential (primary) hypertension Status: Acute (13) Acute hyperkalemia: Code(s): E87.5 - Hyperkalemia Status: Acute Plan Patient is a 88-year-old female who presents to the emergency department this evening due to concern for altered mental status. Patient's daughter reported that since Sunday for the past 3 days patient has been having these intermittent episodes of agitation and seems to be a bit more altered. Daughter states that today was the worst episode of the past 3 days. Patient does have a history of chronic arthritis and does take hydrocodone daily. When EMS arrived, patient was minimally responsive and secondary to this patient was administered Narcan 1 mg. Upon arrival to our emergency department, patient appeared deliriious and agitated, moving all 4 extremities spontaneously, and continues to moan. Daughter states that this is likely secondary to the Narcan as she needs her narcotics to make it through her arthritis pain. Patient was also hypotensive. Patient had multiple episodes of diarrhea in the ED. iv fluid received in the ED. EKG with atrial fibrillation at the rate of 84. Laboratory evaluation revealed lactic acid of 5.1 potassium of 5.4 anion gap of 15 BUN 59 creatinine was 2.5 which is elevated from baseline of 1.1 transaminitis with AST of 565 ALT of 4 hallucis revealed no UTI. Blood pressure improved with resuscitation CT brain with no acute process. Chest x-ray with left lower lobe pneumonia IV antibiotics was started. CT abdomen pelvis revealed thickening of the rectum otherwise unremarkable. patient currently agitated and confused, does not folow much commands. awake and alert but confused. rest of the history coudl not be obtained due to her medical condition. Metabolic acidosis with lactic acidosis noted unclear source. Treat for possible pneumonia.Possible UTI. Possible colitis with diarrhea check C. difficile. General surgery Consulted. Unclear etiology for ongoing lactic acidosis treat dehydration and underlying and as ordered Bacteremia Gram-positive cocci in clusters 1/4 suspect contamination. Cover with vancomycin until finalization Acute kidney injuryOn chronic kidney disease stage III IV fluid resuscitation. Renal consultation. No Hydronephrosis seen on CT. Urinary retention noted this a.m.. Gilbert to be placed. CK mildly elevated at 150. Creatinine stable today Recent stercoral colitis eelvated lvier enzymes: unclear etiology. us liver with findings of cirrhosis of liver. History of heart failure with preserved ejection fraction Cautious IV hydration. History of stroke nonverbal status per record Hypertension Hold blood pressure medication to borderline blood pressure Coronary artery disease HypothyroidismCheck TSH DVT prophylaxis eliquis to be continued CODE STATUS full code Subjective Date/time seen: 05/02/24 14:42 Interval history: Patient more alert today had urinary retention with bladder scan more than 5 cc. Family at bedside and discussed with them. Conformed do not resuscitate status Review of Systems Review of Systems: ROS unobtainable: Yes unobtainable due to medical condition Exam Narrative: General: Awake, alert, confused HEENT: PERRL, no rhinorrhea, no post nasal drip, oropharynx clear. Cardiovascular: Regular rate with an irregular rhythm, no murmurs, rubs or gallops, no peripheral edema. Respiratory: Diminished breath sounds bilaterally, no wheezing, no rhonchi, no rubs, no respiratory distress. Abdomen: Soft, nontender distended, Musculoskeletal: No joint swelling or deformity, normal muscle tone. Skin: No rashes or petechia, no signs of infection. Neurological: Alert and oriented x 1. Follow some commands moving all extremiteis Objective Data Vital Signs Vital Signs: Vital Signs - 24 hr 05/01/24 16:00 05/01/24 21:16 05/01/24 21:21 Temperature Pulse Rate 73 98 103 H Respiratory Rate 18 Blood Pressure Pulse Oximetry Oxygen Delivery 05/01/24 20:00 05/01/24 22:00 05/01/24 20:00 Temperature 97.6 F Pulse Rate 83 77 Respiratory Rate 16 Blood Pressure 135/62 Pulse Oximetry 98 Oxygen Delivery Room Air 05/02/24 00:00 05/02/24 02:35 05/02/24 02:42 Temperature Pulse Rate 86 101 H 102 H Respiratory Rate 18 20 Blood Pressure Pulse Oximetry Oxygen Delivery 05/02/24 04:00 05/02/24 05:20 05/02/24 08:32 Temperature 97.2 F L Pulse Rate 85 103 H 103 H Respiratory Rate 20 20 Blood Pressure 124/90 Pulse Oximetry 96 Oxygen Delivery 05/02/24 08:40 05/02/24 14:36 05/02/24 14:38 Temperature Pulse Rate 104 H 95 95 Respiratory Rate 20 20 20 Blood Pressure Pulse Oximetry Oxygen Delivery Intake/Output Intake/Output: Intake & Output 04/29/24 04/30/24 05/01/24 05/02/24 23:59 23:59 23:59 23:59 Intake Total 1000 2080 730 Balance 1000 2080 730 Meds/Results Medications: Active Medications Generic Name Dose Route Start Last Admin Trade Name Freq PRN Reason Stop Dose Admin Hydrocodone Bitart/Acetaminophen 1 tab 05/01/24 08:33 05/02/24 10:57 Hydrocodone/Acetaminophen (*Crx) 10-325 Mg Tablet PO 1 tab QID PRN Administration pain Albuterol/Ipratropium 3 ml 05/01/24 14:00 05/02/24 14:08 Ipratropium 0.5 Mg/Albuterol Sulfate 2.5 Mg Ampul.Neb 3 Ml INHALATION 3 ml Q6HRT FAHAD Administration Apixaban 2.5 mg 05/01/24 09:00 05/02/24 08:55 Apixaban 2.5 Mg Tablet PO 2.5 mg BID FAHAD Administration Atorvastatin Calcium 40 mg 05/01/24 09:00 05/02/24 08:55 Atorvastatin 40 Mg Tablet PO 40 mg DAILY FAHAD Administration Docusate Sodium 100 mg 05/01/24 09:00 05/02/24 08:55 Docusate Sodium 100 Mg Capsule PO 100 mg BID FAHAD Administration Ceftriaxone Sodium 1 gm in 50 mls @ 100 mls/hr 05/01/24 09:00 05/02/24 09:28 Rocephin 1 Gm/Ns 50 Ml IVPB Infused Q24H FAHAD Infusion Doxycycline Hyclate 100 mg in 100 mls @ 100 mls/hr 05/01/24 09:00 05/02/24 08:58 Vibramycin 100 Mg/Ns 100 Ml IVPB 100 mls/hr Q12H FAHAD Administration Metronidazole 500 mg in 100 mls @ 100 mls/hr 05/01/24 10:00 05/02/24 10:58 Flagyl 500 Mg/Iso Soln 100 Ml IVPB 100 mls/hr Q8H FAHAD Administration Sodium Bicarbonate 150 meq/ 1,100 mls @ 50 mls/hr 05/01/24 13:10 05/01/24 13:34 Dextrose IV CONT 50 mls/hr .Q22H FAHAD Administration Levothyroxine Sodium 150 mcg 05/01/24 11:00 05/02/24 05:30 Levothyroxine Sodium 150 Mcg Tablet PO Not Given DAILY@0630 [facility] Polyethylene Glycol 17 gm 05/03/24 09:00 Polyethylene Glycol 3350 17 Gm Powd.Pack PO QAM [facility] Trazodone HCl 100 mg 05/01/24 21:00 05/01/24 20:58 Trazodone Hcl 50 Mg Tablet PO 100 mg QHS FAHAD Administration Triamcinolone Acetonide 1 applic 05/01/24 09:00 05/01/24 17:43 Triamcinolone Acet 0.1% Cream 15 Gm Tube TOPICAL 1 applic BID FAHAD Administration Vancomycin HCl 1 each 05/02/24 07:43 Vancomycin For Acute Kidney Injury IVPB PRN PRN Vancomycin Protocol Radiology Results: ITS Impressions Head CT 04/30/24 20:28 IMPRESSION: No acute intracranial findings. 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 Abdomen/Pelvis CT 04/30/24 23:26 IMPRESSION: 1. Bilateral moderate pleural effusion with bilateral atelectatic changes. Cardiomegaly. 2. No evidence of obstruction. 3. Minimal fluid in the pelvis. 4. Thickened wall of the rectum. Clinical evaluation advised. Upper Quadrant Ultrasound 05/01/24 09:07 IMPRESSION: 1: Nodular liver surface, compatible with cirrhosis. Trace ascites. 2: Mild biliary dilatation. Renal Ultrasound 05/02/24 14:22 IMPRESSION: 1. Normal right kidney without hydronephrosis. The left kidney was unable to visualized but appears mildly atrophic with no hydronephrosis at the time of the prior CT on 04/30/2024. 2. Small left pleural effusion. Chest X-Ray 05/02/24 14:29 Impression: Small bilateral pleural effusions with mild pulmonary edema pattern. Stable presumed cardiomegaly. Pericardial effusion isn't excluded. Labs Labs: Laboratory Results - last 24 hr 05/01/24 05/01/24 05/02/24 15:39 17:38 06:57 WBC 10.3 H RBC 3.49 L Hgb 12.0 Hct 38.4 MCV 110.0 H MCH 34.4 H MCHC 31.3 L RDW 17.0 H Plt Count 168 MPV 12.3 H Puncture Site ABG pH ABG pCO2 ABG pO2 ABG PO2/FiO2 Ratio ABG HCO3 ABG O2 Saturation ABG O2 Content ABG Base Excess A-a Gradient Oxyhemoglobin Total Hemoglobin O2 Delivery Device O2 Liters/Min FiO2 Sodium 140 141 Potassium 5.3 H 4.8 Chloride 111 H 110 H Carbon Dioxide 19 L 21 L Anion Gap 10 10 BUN 59 H 63 H Creatinine 2.20 H 2.20 H Estim Creat Clear Calc 13 13 Estimated GFR 21 L 21 L Glucose 123 H 100 POC Capillary Glucose 173 H Calcium 9.7 9.3 Total Bilirubin 0.8 AST 782 H ALT 614 H Alkaline Phosphatase 124 Total Creatine Kinase 150 H Total Protein 6.0 L Albumin 3.4 L TSH (Reflex) 47.000 H Free T4 1.83 Total T3 0.66 L 05/02/24 05/02/24 14:17 14:26 WBC RBC Hgb Hct MCV MCH MCHC RDW Plt Count MPV Puncture Site Right brachial ABG pH 7.275 L* ABG pCO2 44.1 ABG pO2 356.0 H ABG PO2/FiO2 Ratio 3.56 ABG HCO3 20.0 L ABG O2 Saturation 99.7 ABG O2 Content 18.4 ABG Base Excess -6.6 A-a Gradient 312.9 Oxyhemoglobin 99.3 Total Hemoglobin 12.5 O2 Delivery Device Non-rebreather mask O2 Liters/Min 15.0 FiO2 100 Sodium Potassium Chloride Carbon Dioxide Anion Gap BUN Creatinine Estim Creat Clear Calc Estimated GFR Glucose POC Capillary Glucose 110 H Calcium Total Bilirubin AST ALT Alkaline Phosphatase Total Creatine Kinase Total Protein Albumin TSH (Reflex) Free T4 Total T3
[2024-05-02 15:15] LABS: Lactic Acid Reflex 4.1 mmol/L (0.7-2.0)
--- NOTE | 2024-05-02 16:33 | PC.NURSE ---
RN gave report to Guilherme PRATT (rm [id number]) at [id number]. Guilherme wanted pt to wait on the floor until pt got CT scan done.
[2024-05-02] MEDS: CEFEPIME 1 GM/NS 50 ML 1 GM/50 ML BAG IVPB ×2 (17:13→23:05)
[2024-05-02] MEDS: SODIUM BICARBONATE 8.4% 150 MEQ in DEXTROSE 5% 1,000 ML 950 ML 50 MEQ IV CONT (17:21)
[2024-05-02 17:44] LABS: Reflex Lactic Acid Yes or No Add Lactic
--- NOTE | 2024-05-02 17:45 | PC.NURSE ---
Pt was taken off the floor to get CT done
--- NOTE | 2024-05-02 17:47 | PC.NURSE ---
RN updated TERENCE yang on Med that was given to pt as well as the 6pm abx that was pulled. Rn was also informed that pt has urine test that haven't been completed.
[2024-05-02 18:49] LABS: MRSA (PCR) NOT DETECTED (NOT DETECTE)
--- NOTE | 2024-05-02 18:49 | PC.NURSE ---
This patient, Esperanza Mark, was received from [facility] on 05/02/24 at 1810. Patient/family oriented to unit policies and routines.
[2024-05-02 19:20] LABS: Creatinine Urine 127.7 mg/dL; Total Protein Urine Random 85 mg/dL; Ur Ttl Prot Creatinine Ratio 0.67 mg/mg (0-0.20); Urea Random Urine 736 MG/DL
[2024-05-02 19:23] LABS: Sodium Urine Random 41 meq/L
[2024-05-02 20:27] LABS: Lactic Acid 3.4 mmol/L (0.7-2.0)
[2024-05-02] MEDS: traZODone HCL 50 MG TABLET 100 MG PO (20:51)
[2024-05-03] VITALS (28 sets, daily range): BP systolic 107–130; BP diastolic 70–90; PULSE 105–144; RESP 14–20; TEMP 35.6–36.5; O2SAT 88–100
[2024-05-03] MEDS: metroNIDAZOLE 500 MG/ISO 100ML 500 MG/100 ML BAG 100 MG IVPB ×3 (02:17→22:43)
[2024-05-03 05:47] LABS: Basophils Percent Auto 0.3 % (0.2-1.2); Eosinophils Absolute Auto 0.1 K/mm3 (0-0.3); Eosinophils Percent Auto 0.6 % (0-4.4); Hematocrit 34.6 % (37.0-47.0); Hemoglobin 11.1 g/dL (12.0-15.0); Immature Granulocyte Absolute 0.03 K/mm3 (0.00-0.031); Immature Granulocyte Percent A 0.4 % (0-0.5); Lymphocytes Absolute Auto 0.39 K/mm3 (0.9-3.2); Mean Corpuscular HGB Conc 32.1 g/dl (32-36); Mean Corpuscular Hemoglobin 34.8 pg (26-34); Mean Corpuscular Volume 108.5 fl (80-100); Mean Platelet Volume 12.7 fl (7.4-10.4); Monocytes Absolute Auto 0.5 K/mm3 (0.1-0.6); Monocytes Percent Auto 6.9 % (2.6-8.5); Neutrophils Absolute Auto 6.8 K/mm3 (1.3-6.7); Neutrophils Percent Auto 86.8 % (45.5-73.1); Nucleated Red Blood Cells Perc 2.3 % (0.0-0.2); Platelet Count Result 137 k/mm3 (150-375); Red Blood Count 3.19 M/mm3 (4.2-5.4); Red Cell Distribution Width 17.2 % (11.5-14.5); White Blood Count 7.9 K/mm3 (4.5-10.0)
[2024-05-03 05:53] LABS: Lactic Acid Reflex 2.5 mmol/L (0.7-2.0)
[2024-05-03 06:01] LABS: Alanine Aminotransferase 649 U/L (6-35); Albumin Level 3.3 g/dL (3.5-5.1); Alkaline Phosphatase 122 U/L (38-126); Anion Gap 10 mmol/L (4-12); Aspartate Amino Transferase 707 U/L (14-36); Bilirubin,Total 0.7 mg/dL (0.2-1.3); Blood Urea Nitrogen 61 mg/dL (7-17); Calcium 9.1 mg/dL (8.4-10.2); Carbon Dioxide 18 mmol/L (22-30); Chloride 112 mmol/L (98-107); Estimated CRCL calculation 15 ml/min; Estimated Glomerular Filt Rate 25; Glucose 75 mg/dL (65-110); Phosphorus 3.7 mg/dL (2.5-4.5); Potassium 4.2 mmol/L (3.4-5.0); Sodium 140 mmol/L (137-145)
[2024-05-03 06:06] LABS: Anisocytosis 1+; Burr Cells 1+; Macrocytosis 1+ (NORMAL); Platelet Estimate Slightly Decreased (Adequate); Poikilocytosis 1+; Schistocytes Rare
[2024-05-03] MEDS: LEVOTHYROXINE SODIUM 100 MCG TABLET PO (06:47)
[2024-05-03] MEDS: LEVOTHYROXINE SODIUM 75 MCG TABLET PO (06:47)
[2024-05-03 06:50] LABS: Vancomycin Trough 7.9 ug/mL (10.0-20.0)
[2024-05-03 08:40] LABS: Reflex Lactic Acid Yes or No Add Lactic
[2024-05-03] MEDS: IPRATROPIUM 0.5 MG/ALBUTEROL SULFATE 2.5 MG AMPUL.NEB 3 ML INHALATION ×3 (08:56→20:36)
[2024-05-03 09:19] LABS: Lactic Acid 3.5 mmol/L (0.7-2.0)
--- NOTE | 2024-05-03 09:47 | P.PNIM_ITS ---
Progress Note: A&P Assessment and Plan (1) Acute delirium: Code(s): R41.0 - Disorientation, unspecified Status: Acute Assessment and Plan: * Consider drug or alcohol withdrawal * No evidence for new stroke on CT * Dehydration with acute kidney injury likely contributing * 1 abnormal blood culture with staphylococcus capitis is likely contaminant * No evidence for pneumonia on CT * CT did suggest thickening of rectum * Also had pelvic fluid and bilateral pleural effusions and cirrhosis * 05/03 continuing cefepime, metronidazole, vancomycin a pending follow-up labs (2) Acute kidney injury: Code(s): N17.9 - Acute kidney failure, unspecified Status: Acute Assessment and Plan: * 05/03 creatinine improved to 1.9 with hydration (3) Dehydration: Code(s): E86.0 - Dehydration Status: Acute Assessment and Plan: * Likely due to poor p.o. intake (4) Atrial fibrillation: Code(s): I48.91 - Unspecified atrial fibrillation Status: Acute Assessment and Plan: * 05/03 remains tachycardic with rate in 121 agitated * Continue monitoring on IMU (5) Cirrhosis of liver: Code(s): K74.60 - Unspecified cirrhosis of liver Status: Acute Assessment and Plan: * Differential diagnosis includes surreptitious alcohol use, drug induced, autoimmune, chronic hepatitis, INMAN (6) CAD (coronary artery disease): Qualifiers: Coronary Disease-Associated Artery/Lesion type: unspecified vessel or lesion type Code(s): I25.10 - Atherosclerotic heart disease of [place] coronary artery without angina pectoris Status: Acute Assessment and Plan: * No sign of acute coronary syndrome (7) Heart failure with preserved ejection fraction: Code(s): I50.30 - Unspecified diastolic (congestive) heart failure Status: Acute Assessment and Plan: * Monitor fluid balance with rehydration (8) HTN (hypertension): Code(s): I10 - Essential (primary) hypertension Status: Acute Assessment and Plan: * Continue current regimen (9) Hypothyroidism: Code(s): E03.9 - Hypothyroidism, unspecified Status: Acute Assessment and Plan: * Admission thyroid function studies with elevated TSH normal free T4 and low T3 * 05/03 reduce levothyroxine dose to home dose, as no need to increase based on admission studies (10) Dementia: Code(s): F03.90 - Unspecified dementia, unspecified severity, without behavioral disturbance, psychotic disturbance, mood disturbance, and anxiety Status: Acute Assessment and Plan: * Likely vascular related to 2019 stroke (11) Transaminitis: Code(s): R74.01 - Elevation of levels of liver transaminase levels Status: Acute Assessment and Plan: * Etiology unclear * CT and ultrasound findings consistent with cirrhosis * Family denies any alcohol intake * Acute hepatitis panel pending (12) Hx of completed stroke: Code(s): Z86.73 - Personal history of transient ischemic attack (TIA), and cerebral infarction without residual deficits Status: Acute Assessment and Plan: * Dysphagia and dysarthria Subjective Date/time seen: 05/03/24 09:47 Interval history: 88-year-old female with stroke 2018 which left her with dysphagia and expressive aphasia was brought to the emergency room May 01 due to 3 days of increasing confusion. She was hypotensive and poorly responsive when EMS arrived. She received Narcan. Since then she has been agitated. This has been in spite of receiving more opioids. She is chronically incontinent of urine. She was retaining 500 mL of urine and a Gilbert catheter was placed. She has a recent history of stroke oral colitis in March 2024. No history of drinking or smoking. No known history of cirrhosis. Known history of stage IIIA chronic kidney disease. History was obtained from chart and from daughter at bedside. The daughter with whom the patient stays is not available at this time but will be her later. Review of Systems Review of Systems: ROS unobtainable: Yes unobtainable due to medical condition Exam Narrative: HEENT: PERRL, sclerae nonicteric, pharyngeal mucosa pink and intact NECK: No JVD CHEST: Clear to auscultation. Normal effort. HEART: NL S1/S2, irregular, no audible murmur. ABDOMEN: BS+, soft, nontender, no mass, no bruits EXTREMITIES: No cyanosis, edema, or clubbing NEUROLOGIC: CN intact and symmetric to inspection. Speech unintelligible. MUSCULOSKELETAL: Tone and strength symmetric. Tone and strength symmetric, Babinski negative. PSYCH: Alert. Seems to be oriented to person. Squeezed fingers upon command but did not follow other commands. Objective Data Vital Signs Vital Signs: Vital Signs - 24 hr 05/02/24 14:36 05/02/24 14:38 05/02/24 12:00 Temperature Pulse Rate 95 95 95 Respiratory Rate 20 20 Blood Pressure Pulse Oximetry Oxygen Delivery Fraction of Inspired Oxygen 05/02/24 14:00 05/02/24 18:41 05/02/24 20:27 Temperature 94.4 F L Pulse Rate 80 123 H 108 H Respiratory Rate 20 20 20 Blood Pressure 92/60 L 96/58 L Pulse Oximetry 97 100 Oxygen Delivery Fraction of Inspired Oxygen 05/02/24 20:28 05/02/24 20:37 05/02/24 20:00 Temperature 94.7 F L Pulse Rate 108 H 111 H Respiratory Rate 20 Blood Pressure Pulse Oximetry 98 Oxygen Delivery Room Air Fraction of Inspired Oxygen 21 05/02/24 20:00 05/02/24 20:15 05/02/24 20:30 Temperature 94.7 F L 94.7 F L 94.8 F L Pulse Rate 111 H Respiratory Rate 20 Blood Pressure 96/58 L Pulse Oximetry 94 Oxygen Delivery Fraction of Inspired Oxygen 05/02/24 20:45 05/02/24 16:01 05/02/24 21:00 Temperature 94.8 F L 95.1 F L Pulse Rate 101 H Respiratory Rate Blood Pressure Pulse Oximetry Oxygen Delivery Fraction of Inspired Oxygen 05/02/24 21:30 05/02/24 22:00 05/02/24 22:30 Temperature 95.1 F L 95.4 F L 95.7 F L Pulse Rate Respiratory Rate Blood Pressure Pulse Oximetry Oxygen Delivery Fraction of Inspired Oxygen 05/02/24 20:00 05/02/24 20:00 05/02/24 22:00 Temperature Pulse Rate 111 H 109 H 112 H Respiratory Rate 20 Blood Pressure Pulse Oximetry 94 Oxygen Delivery Room Air Fraction of Inspired Oxygen 05/02/24 23:00 05/02/24 23:30 05/03/24 00:00 Temperature 95.9 F L 96 F L 96.1 F L Pulse Rate Respiratory Rate Blood Pressure Pulse Oximetry Oxygen Delivery Fraction of Inspired Oxygen 05/03/24 00:00 05/03/24 00:30 05/03/24 00:00 Temperature 96.1 F L 96.1 F L Pulse Rate 106 H 106 H Respiratory Rate 18 18 Blood Pressure 116/77 Pulse Oximetry 96 96 Oxygen Delivery Room Air Fraction of Inspired Oxygen 05/03/24 01:00 05/03/24 01:30 05/03/24 00:00 Temperature 96.3 F L 96.7 F L Pulse Rate 119 H Respiratory Rate Blood Pressure Pulse Oximetry Oxygen Delivery Fraction of Inspired Oxygen 05/03/24 02:00 05/03/24 02:00 05/03/24 04:00 Temperature 97.5 F L 97.1 F L Pulse Rate 113 H 124 H Respiratory Rate 20 Blood Pressure 116/71 Pulse Oximetry 95 Oxygen Delivery Fraction of Inspired Oxygen 05/03/24 04:00 05/03/24 04:00 05/03/24 05:54 Temperature Pulse Rate 124 H 135 H 111 H Respiratory Rate 20 Blood Pressure Pulse Oximetry 95 Oxygen Delivery Room Air Fraction of Inspired Oxygen 05/03/24 07:58 05/03/24 08:56 05/03/24 08:56 Temperature 96.8 F L Pulse Rate 122 H 115 H Respiratory Rate 20 Blood Pressure 121/75 Pulse Oximetry 97 96 Oxygen Delivery Room Air Fraction of Inspired Oxygen 05/03/24 08:59 05/03/24 09:04 Temperature Pulse Rate 140 H 123 H Respiratory Rate 20 Blood Pressure Pulse Oximetry 100 Oxygen Delivery Room Air Fraction of Inspired Oxygen Intake/Output Intake/Output: Intake & Output 04/30/24 05/01/24 05/02/24 05/03/24 23:59 23:59 23:59 23:59 Intake Total 1000 2080 2580 150 Output Total 250 110 Balance 1000 2080 2330 40 Meds/Results Medications: Active Medications Generic Name Dose Route Start Last Admin Trade Name Freq PRN Reason Stop Dose Admin Hydrocodone Bitart/Acetaminophen 1 tab 05/01/24 08:33 05/02/24 17:21 Hydrocodone/Acetaminophen (*Crx) 10-325 Mg Tablet PO 1 tab QID PRN Administration pain Albuterol/Ipratropium 3 ml 05/01/24 14:00 05/03/24 08:56 Ipratropium 0.5 Mg/Albuterol Sulfate 2.5 Mg Ampul.Neb 3 Ml INHALATION 3 ml Q6HRT FAHAD Administration Apixaban 2.5 mg 05/01/24 09:00 05/02/24 17:15 Apixaban 2.5 Mg Tablet PO 2.5 mg BID FAHAD Administration Atorvastatin Calcium 40 mg 05/01/24 09:00 05/02/24 08:55 Atorvastatin 40 Mg Tablet PO 40 mg DAILY FAHAD Administration Docusate Sodium 100 mg 05/01/24 09:00 05/02/24 17:15 Docusate Sodium 100 Mg Capsule PO 100 mg BID FAHAD Administration Doxycycline Hyclate 100 mg in 100 mls @ 100 mls/hr 05/01/24 09:00 05/02/24 21:51 Vibramycin 100 Mg/Ns 100 Ml IVPB Infused Q12H FAHAD Infusion Metronidazole 500 mg in 100 mls @ 100 mls/hr 05/01/24 10:00 05/03/24 03:17 Flagyl 500 Mg/Iso Soln 100 Ml IVPB Infused Q8H FAHAD Infusion Sodium Bicarbonate 150 meq/ 1,100 mls @ 50 mls/hr 05/01/24 13:10 05/02/24 17:21 Dextrose IV CONT 50 mls/hr .Q22H FAHAD Administration Cefepime HCl 1 gm in 50 mls @ 100 mls/hr 05/02/24 15:45 05/02/24 23:47 Maxipime 1 Gm/Ns 50 Ml IVPB Infused Q12HR FAHAD Infusion Levothyroxine Sodium 100 mcg 05/03/24 06:30 05/03/24 06:47 Levothyroxine Sodium 100 Mcg Tablet PO 100 mcg DAILY@0630 FAHAD Administration Levothyroxine Sodium 75 mcg 05/03/24 06:30 05/03/24 06:47 Levothyroxine Sodium 75 Mcg Tablet PO 75 mcg DAILY@0630 FAHAD Administration Polyethylene Glycol 17 gm 05/03/24 09:00 Polyethylene Glycol 3350 17 Gm Powd.Pack PO QAM FAHAD Trazodone HCl 100 mg 05/01/24 21:00 05/02/24 20:51 Trazodone Hcl 50 Mg Tablet PO 100 mg QHS FAHAD Administration Triamcinolone Acetonide 1 applic 05/01/24 09:00 05/02/24 17:29 Triamcinolone Acet 0.1% Cream 15 Gm Tube TOPICAL 1 applic BID FAHAD Administration Vancomycin HCl 1 each 05/02/24 07:43 Vancomycin For Acute Kidney Injury IVPB PRN PRN Vancomycin Protocol Radiology Results: ITS Impressions Head CT 04/30/24 20:28 IMPRESSION: No acute intracranial findings. 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 Abdomen/Pelvis CT 04/30/24 23:26 IMPRESSION: 1. Bilateral moderate pleural effusion with bilateral atelectatic changes. Cardiomegaly. 2. No evidence of obstruction. 3. Minimal fluid in the pelvis. 4. Thickened wall of the rectum. Clinical evaluation advised. Upper Quadrant Ultrasound 05/01/24 09:07 IMPRESSION: 1: Nodular liver surface, compatible with cirrhosis. Trace ascites. 2: Mild biliary dilatation. Renal Ultrasound 05/02/24 14:22 IMPRESSION: 1. Normal right kidney without hydronephrosis. The left kidney was unable to visualized but appears mildly atrophic with no hydronephrosis at the time of the prior CT on 04/30/2024. 2. Small left pleural effusion. Chest X-Ray 05/02/24 14:29 Impression: Small bilateral pleural effusions with mild pulmonary edema pattern. Stable presumed cardiomegaly. Pericardial effusion isn't excluded. Chest/Abdomen/Pelvis CT 05/02/24 23:59 IMPRESSION: CHEST: 1. Bilateral moderate pleural effusion with adjacent atelectasis. Atelectatic changes in the lingula and middle lobe. 2. Cardiomegaly. ABDOMEN/PELVIS: 1. Fluid in the pelvis with fat stranding of the mesentery inflammatory changes should be considered. 2. Edema in the subcutaneous tissues which may indicate volume overload. Labs Labs: Laboratory Results - last 24 hr 05/02/24 05/02/24 05/02/24 06:57 14:17 14:26 WBC RBC Hgb Hct MCV MCH MCHC RDW Plt Count MPV Immature Gran % (Auto) Neut % (Auto) Lymph % (Auto) [place] % (Auto) Eos % (Auto) Baso % (Auto) Lymph # (Auto) [place] # (Auto) Eos # (Auto) Baso # (Auto) Abs Immat Gran (auto) Absolute Neuts (auto) Absolute Nucleated RBC Nucleated RBC % Platelet Estimate Poikilocytosis Anisocytosis Macrocytosis Eli Cells Schistocytes Puncture Site Right brachial ABG pH 7.275 L* ABG pCO2 44.1 ABG pO2 356.0 H ABG PO2/FiO2 Ratio 3.56 ABG HCO3 20.0 L ABG O2 Saturation 99.7 ABG O2 Content 18.4 ABG Base Excess -6.6 A-a Gradient 312.9 Oxyhemoglobin 99.3 Total Hemoglobin 12.5 O2 Delivery Device Non-rebreather mask O2 Liters/Min 15.0 FiO2 100 Sodium Potassium Chloride Carbon Dioxide Anion Gap BUN Creatinine Estim Creat Clear Calc Estimated GFR Glucose POC Capillary Glucose 110 H Lactic Acid Calcium Phosphorus Magnesium Total Bilirubin AST ALT Alkaline Phosphatase Total Creatine Kinase 150 H Total Protein Albumin U Random Total Protein Ur Random Sodium Ur Random Urea Urine Creatinine Protein/Creat Ratio 2 Nasal MRSA (PCR) Vancomycin Trough 05/02/24 05/02/24 05/02/24 14:35 17:26 18:54 WBC RBC Hgb Hct MCV MCH MCHC RDW Plt Count MPV Immature Gran % (Auto) Neut % (Auto) Lymph % (Auto) [place] % (Auto) Eos % (Auto) Baso % (Auto) Lymph # (Auto) [place] # (Auto) Eos # (Auto) Baso # (Auto) Abs Immat Gran (auto) Absolute Neuts (auto) Absolute Nucleated RBC Nucleated RBC % Platelet Estimate Poikilocytosis Anisocytosis Macrocytosis Eli Cells Schistocytes Puncture Site ABG pH ABG pCO2 ABG pO2 ABG PO2/FiO2 Ratio ABG HCO3 ABG O2 Saturation ABG O2 Content ABG Base Excess A-a Gradient Oxyhemoglobin Total Hemoglobin O2 Delivery Device O2 Liters/Min FiO2 Sodium Potassium Chloride Carbon Dioxide Anion Gap BUN Creatinine Estim Creat Clear Calc Estimated GFR Glucose POC Capillary Glucose Lactic Acid 4.1 H* Calcium Phosphorus Magnesium Total Bilirubin AST ALT Alkaline Phosphatase Total Creatine Kinase Total Protein Albumin U Random Total Protein 85 Ur Random Sodium 41 Ur Random Urea 736 Urine Creatinine 127.7 Protein/Creat Ratio 2 0.67 H Nasal MRSA (PCR) Not detected Vancomycin Trough 05/02/24 05/03/24 05/03/24 19:35 05:10 09:03 WBC 7.9 RBC 3.19 L Hgb 11.1 L Hct 34.6 L MCV 108.5 H MCH 34.8 H MCHC 32.1 RDW 17.2 H Plt Count 137 L MPV 12.7 H Immature Gran % (Auto) 0.4 Neut % (Auto) 86.8 H Lymph % (Auto) 5.0 L [place] % (Auto) 6.9 Eos % (Auto) 0.6 Baso % (Auto) 0.3 Lymph # (Auto) 0.39 L [place] # (Auto) 0.5 Eos # (Auto) 0.1 Baso # (Auto) 0.0 Abs Immat Gran (auto) 0.03 Absolute Neuts (auto) 6.8 H Absolute Nucleated RBC 0.180 H Nucleated RBC % 2.3 H Platelet Estimate Slightly decreased Poikilocytosis 1+ Anisocytosis 1+ Macrocytosis 1+ Eli Cells 1+ Schistocytes Rare Puncture Site ABG pH ABG pCO2 ABG pO2 ABG PO2/FiO2 Ratio ABG HCO3 ABG O2 Saturation ABG O2 Content ABG Base Excess A-a Gradient Oxyhemoglobin Total Hemoglobin O2 Delivery Device O2 Liters/Min FiO2 Sodium 140 Potassium 4.2 Chloride 112 H Carbon Dioxide 18 L Anion Gap 10 BUN 61 H Creatinine 1.90 H Estim Creat Clear Calc 15 Estimated GFR 25 L Glucose 75 POC Capillary Glucose Lactic Acid 3.4 H 2.5 H 3.5 H Calcium 9.1 Phosphorus 3.7 Magnesium 2.0 Total Bilirubin 0.7 AST 707 H ALT 649 H Alkaline Phosphatase 122 Total Creatine Kinase Total Protein 6.0 L Albumin 3.3 L U Random Total Protein Ur Random Sodium Ur Random Urea Urine Creatinine Protein/Creat Ratio 2 Nasal MRSA (PCR) Vancomycin Trough 7.9 L
[2024-05-03 10:35] LABS: Immature Reticulocyte Fraction 30.3 % (3.0-15.9); Reticulocyte Hemoglobin Conten 30.1 pg (28.2-36.6); Reticulocyte Percent 4.49 % (0.7-4.3); Reticulocytes Absolute 0.14 10^6/uL (0.02-0.10)
[2024-05-03 10:51] LABS: CRP 3.1 mg/dL (<1.0)
[2024-05-03 11:04] LABS: Iron 25 ug/dL (37-170)
[2024-05-03 11:05] LABS: Procalcitonin 0.2 ng/mL
[2024-05-03 11:12] LABS: Ammonia < 9 umol/L (9-30)
[2024-05-03 11:13] LABS: Percent Iron Saturation 8 % (20-50); TOTAL IRON BINDING CAPACITY 299 ug/dL (261-462)
[2024-05-03 11:26] LABS: Hepatitis B Surface Antigen Negative (Negative)
[2024-05-03] MEDS: VANCOMYCIN 1,250 MG/NS 250 ML BAG 166.67 MG IVPB (11:28)
[2024-05-03 11:36] LABS: HAV RESULT Negative (Negative)
[2024-05-03 11:49] LABS: Hepatitis C Virus Antibody Negative (Negative)
[2024-05-03 11:56] LABS: Folic Acid 10.5 ng/mL (2.76->20); Vitamin B12 > 1000.0 pg/mL (239-931)
--- NOTE | 2024-05-03 12:22 | PCSTNOTE ---
Please refer to the Modified Barium Swallow Evaluation in the EMR.
--- NOTE | 2024-05-03 12:24 | PM.PNNEP ---
Progress Note: A&P Assessment and Plan (1) Stage 3b chronic kidney disease: Code(s): N18.32 - Chronic kidney disease, stage 3b Status: Acute Assessment and Plan: The patient has chronic kidney disease. Most likely related to vascular disease and hypertension. Baseline creatinine seems to be 1.1-1.2. (2) Acute kidney injury: Code(s): N17.9 - Acute kidney failure, unspecified Status: Acute Assessment and Plan: The patient has a newly high creatinine. She appears dehydrated on exam. She is getting treated with IV fluids. Fractional excretion of urea showed dehydration. CK is normal On ultrasound, Right kidney shows no hydro. left kidney not visualized. The CT scan was viewed by the person who read the ultrasound and it showed some hydro on the left kidney with a mildly small kidney. Will consult Urology. The patient was not urinating. Now has a Gilbert Catheter in place. she is getting IV fluids and antibiotics. Her creatinine is better. (3) Pyuria: Code(s): R82.81 - Pyuria Status: Acute Assessment and Plan: Urine cultures are pending. She is on ceftriaxone and vancomycin. (4) HTN (hypertension): Code(s): I10 - Essential (primary) hypertension Status: Acute Assessment and Plan: The patient has hypertension but her blood pressure was low in the emergency room. Antihypertensives are on hold (5) Acute hyperkalemia: Code(s): E87.5 - Hyperkalemia Status: Acute Assessment and Plan: Potassium was high on admission. This was treated and is now normal. It was likely due to the acute kidney injury (6) Metabolic acidosis: Code(s): E87.20 - Acidosis, unspecified Status: Acute Assessment and Plan: The patient had metabolic acidosis. CO2 was 17. Anion gap is 15. Delta anion gap is 9 and delta bicarb is 6 to 9. Lactic acid was 4. Lactic acid is still high. Subjective Date/time seen: 05/03/24 12:24 Interval history: patient is awake and alert. Aphasic. Family in the room. Review of Systems Cardiovascular: Cardiovascular: Reports no additional cardiovascular complaints Respiratory: Respiratory: Reports no additional respiratory complaints Gastrointestinal: Gastrointestinal: Reports no additional gastrointestinal complaints Genitourinary: Genitourinary: Reports no additional female genitourinary complaints Exam Narrative: WDWN in NAD skin no rash head ncat lungs clear cor reg no rub abd BS+ nontender and soft ext no edema. Objective Data Vital Signs Vital Signs: Vital Signs - 24 hr 05/02/24 14:36 05/02/24 14:38 05/02/24 14:00 Temperature 94.4 F L Pulse Rate 95 95 80 Respiratory Rate 20 20 20 Blood Pressure 92/60 L Pulse Oximetry 97 Oxygen Delivery Fraction of Inspired Oxygen 05/02/24 18:41 05/02/24 20:27 05/02/24 20:28 Temperature Pulse Rate 123 H 108 H 108 H Respiratory Rate 20 20 Blood Pressure 96/58 L Pulse Oximetry 100 98 Oxygen Delivery Room Air Fraction of Inspired Oxygen 21 05/02/24 20:37 05/02/24 20:00 05/02/24 20:00 Temperature 94.7 F L 94.7 F L Pulse Rate 111 H 111 H Respiratory Rate 20 20 Blood Pressure 96/58 L Pulse Oximetry 94 Oxygen Delivery Fraction of Inspired Oxygen 05/02/24 20:15 05/02/24 20:30 05/02/24 20:45 Temperature 94.7 F L 94.8 F L 94.8 F L Pulse Rate Respiratory Rate Blood Pressure Pulse Oximetry Oxygen Delivery Fraction of Inspired Oxygen 05/02/24 16:01 05/02/24 21:00 05/02/24 21:30 Temperature 95.1 F L 95.1 F L Pulse Rate 101 H Respiratory Rate Blood Pressure Pulse Oximetry Oxygen Delivery Fraction of Inspired Oxygen 05/02/24 22:00 05/02/24 22:30 05/02/24 20:00 Temperature 95.4 F L 95.7 F L Pulse Rate 111 H Respiratory Rate 20 Blood Pressure Pulse Oximetry 94 Oxygen Delivery Room Air Fraction of Inspired Oxygen 05/02/24 20:00 05/02/24 22:00 05/02/24 23:00 Temperature 95.9 F L Pulse Rate 109 H 112 H Respiratory Rate Blood Pressure Pulse Oximetry Oxygen Delivery Fraction of Inspired Oxygen 05/02/24 23:30 05/03/24 00:00 05/03/24 00:00 Temperature 96 F L 96.1 F L 96.1 F L Pulse Rate 106 H Respiratory Rate 18 Blood Pressure 116/77 Pulse Oximetry 96 Oxygen Delivery Fraction of Inspired Oxygen 05/03/24 00:30 05/03/24 00:00 05/03/24 01:00 Temperature 96.1 F L 96.3 F L Pulse Rate 106 H Respiratory Rate 18 Blood Pressure Pulse Oximetry 96 Oxygen Delivery Room Air Fraction of Inspired Oxygen 05/03/24 01:30 05/03/24 00:00 05/03/24 02:00 Temperature 96.7 F L Pulse Rate 119 H 113 H Respiratory Rate Blood Pressure Pulse Oximetry Oxygen Delivery Fraction of Inspired Oxygen 05/03/24 02:00 05/03/24 04:00 05/03/24 04:00 Temperature 97.5 F L 97.1 F L Pulse Rate 124 H 124 H Respiratory Rate 20 20 Blood Pressure 116/71 Pulse Oximetry 95 95 Oxygen Delivery Room Air Fraction of Inspired Oxygen 05/03/24 04:00 05/03/24 05:54 05/03/24 07:58 Temperature 96.8 F L Pulse Rate 135 H 111 H 122 H Respiratory Rate Blood Pressure 121/75 Pulse Oximetry 97 Oxygen Delivery Fraction of Inspired Oxygen 05/03/24 08:56 05/03/24 08:56 05/03/24 08:59 Temperature Pulse Rate 115 H 140 H Respiratory Rate 20 Blood Pressure Pulse Oximetry 96 100 Oxygen Delivery Room Air Room Air Fraction of Inspired Oxygen 05/03/24 09:04 05/03/24 11:56 Temperature 97.1 F L Pulse Rate 123 H 131 H Respiratory Rate 20 Blood Pressure 107/70 Pulse Oximetry 98 Oxygen Delivery Fraction of Inspired Oxygen Intake/Output Intake/Output: Intake & Output 04/30/24 05/01/24 05/02/24 05/03/24 23:59 23:59 23:59 23:59 Intake Total 1000 2080 2580 390 Output Total 250 110 Balance 1000 2080 2330 280 Meds/Results Medications: Active Medications Generic Name Dose Route Start Last Admin Trade Name Freq PRN Reason Stop Dose Admin Hydrocodone Bitart/Acetaminophen 1 tab 05/01/24 08:33 05/02/24 17:21 Hydrocodone/Acetaminophen (*Crx) 10-325 Mg Tablet PO 1 tab QID PRN Administration pain Albuterol/Ipratropium 3 ml 05/01/24 14:00 05/03/24 08:56 Ipratropium 0.5 Mg/Albuterol Sulfate 2.5 Mg Ampul.Neb 3 Ml INHALATION 3 ml Q6HRT FAHAD Administration Apixaban 2.5 mg 05/01/24 09:00 05/03/24 11:39 Apixaban 2.5 Mg Tablet PO Not Given BID [facility] Atorvastatin Calcium 40 mg 05/01/24 09:00 05/03/24 11:39 Atorvastatin 40 Mg Tablet PO Not Given DAILY [facility] Docusate Sodium 100 mg 05/01/24 09:00 05/03/24 11:39 Docusate Sodium 100 Mg Capsule PO Not Given BID [facility] Doxycycline Hyclate 100 mg in 100 mls @ 100 mls/hr 05/01/24 09:00 05/02/24 21:51 Vibramycin 100 Mg/Ns 100 Ml IVPB Infused Q12H FAHAD Infusion Metronidazole 500 mg in 100 mls @ 100 mls/hr 05/01/24 10:00 05/03/24 03:17 Flagyl 500 Mg/Iso Soln 100 Ml IVPB Infused Q8H [facility] Infusion Sodium Bicarbonate 150 meq/ 1,100 mls @ 50 mls/hr 05/01/24 13:10 05/02/24 17:21 Dextrose IV CONT 50 mls/hr .Q22H [facility] Administration Cefepime HCl 1 gm in 50 mls @ 100 mls/hr 05/02/24 15:45 05/02/24 23:47 Maxipime 1 Gm/Ns 50 Ml IVPB Infused Q12HR [facility] Infusion Levothyroxine Sodium 150 mcg 05/04/24 06:30 Levothyroxine Sodium 150 Mcg Tablet PO DAILY@0630 [facility] Polyethylene Glycol 17 gm 05/03/24 09:00 05/03/24 11:39 Polyethylene Glycol 3350 17 Gm Powd.Pack PO Not Given QAM [facility] Trazodone HCl 100 mg 05/01/24 21:00 05/02/24 20:51 Trazodone Hcl 50 Mg Tablet PO 100 mg QHS [facility] Administration Triamcinolone Acetonide 1 applic 05/01/24 09:00 05/02/24 17:29 Triamcinolone Acet 0.1% Cream 15 Gm Tube TOPICAL 1 applic BID [facility] Administration Vancomycin HCl 1 each 05/02/24 07:43 Vancomycin For Acute Kidney Injury IVPB PRN PRN Vancomycin Protocol Radiology Results: ITS Impressions Head CT 04/30/24 20:28 IMPRESSION: No acute intracranial findings. 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 Abdomen/Pelvis CT 04/30/24 23:26 IMPRESSION: 1. Bilateral moderate pleural effusion with bilateral atelectatic changes. Cardiomegaly. 2. No evidence of obstruction. 3. Minimal fluid in the pelvis. 4. Thickened wall of the rectum. Clinical evaluation advised. Upper Quadrant Ultrasound 05/01/24 09:07 IMPRESSION: 1: Nodular liver surface, compatible with cirrhosis. Trace ascites. 2: Mild biliary dilatation. Renal Ultrasound 05/02/24 14:22 IMPRESSION: 1. Normal right kidney without hydronephrosis. The left kidney was unable to visualized but appears mildly atrophic with no hydronephrosis at the time of the prior CT on 04/30/2024. 2. Small left pleural effusion. Chest X-Ray 05/02/24 14:29 Impression: Small bilateral pleural effusions with mild pulmonary edema pattern. Stable presumed cardiomegaly. Pericardial effusion isn't excluded. Chest/Abdomen/Pelvis CT 05/02/24 23:59 IMPRESSION: CHEST: 1. Bilateral moderate pleural effusion with adjacent atelectasis. Atelectatic changes in the lingula and middle lobe. 2. Cardiomegaly. ABDOMEN/PELVIS: 1. Fluid in the pelvis with fat stranding of the mesentery inflammatory changes should be considered. 2. Edema in the subcutaneous tissues which may indicate volume overload. Labs Labs: Laboratory Results - last 24 hr 05/02/24 05/02/24 05/02/24 06:57 14:17 14:26 WBC RBC Hgb Hct MCV MCH MCHC RDW Plt Count MPV Immature Gran % (Auto) Neut % (Auto) Lymph % (Auto) [place] % (Auto) Eos % (Auto) Baso % (Auto) Lymph # (Auto) [place] # (Auto) Eos # (Auto) Baso # (Auto) Abs Immat Gran (auto) Absolute Neuts (auto) Absolute Nucleated RBC Nucleated RBC % Platelet Estimate Poikilocytosis Anisocytosis Macrocytosis Eli Cells Schistocytes Absolute Retic Percent Retic Immature Retic Fraction Retic Hgb Content Puncture Site Right brachial ABG pH 7.275 L* ABG pCO2 44.1 ABG pO2 356.0 H ABG PO2/FiO2 Ratio 3.56 ABG HCO3 20.0 L ABG O2 Saturation 99.7 ABG O2 Content 18.4 ABG Base Excess -6.6 A-a Gradient 312.9 Oxyhemoglobin 99.3 Total Hemoglobin 12.5 O2 Delivery Device Non-rebreather mask O2 Liters/Min 15.0 FiO2 100 Sodium Potassium Chloride Carbon Dioxide Anion Gap BUN Creatinine Estim Creat Clear Calc Estimated GFR Glucose POC Capillary Glucose 110 H Lactic Acid Calcium Phosphorus Magnesium Iron TIBC % Saturation Ferritin Total Bilirubin AST ALT Alkaline Phosphatase Ammonia Total Creatine Kinase 150 H C-Reactive Protein Total Protein Albumin Vitamin B12 Folate Procalcitonin U Random Total Protein Ur Random Sodium Ur Random Urea Urine Creatinine Protein/Creat Ratio 2 Nasal MRSA (PCR) Vancomycin Trough Hepatitis A IgM Ab Hep Bs Antigen Hepatitis C Ab Screen 05/02/24 05/02/24 05/02/24 14:35 17:26 18:54 WBC RBC Hgb Hct MCV MCH MCHC RDW Plt Count MPV Immature Gran % (Auto) Neut % (Auto) Lymph % (Auto) [place] % (Auto) Eos % (Auto) Baso % (Auto) Lymph # (Auto) [place] # (Auto) Eos # (Auto) Baso # (Auto) Abs Immat Gran (auto) Absolute Neuts (auto) Absolute Nucleated RBC Nucleated RBC % Platelet Estimate Poikilocytosis Anisocytosis Macrocytosis [place] Cells Schistocytes Absolute Retic Percent Retic Immature Retic Fraction Retic Hgb Content Puncture Site ABG pH ABG pCO2 ABG pO2 ABG PO2/FiO2 Ratio ABG HCO3 ABG O2 Saturation ABG O2 Content ABG Base Excess A-a Gradient Oxyhemoglobin Total Hemoglobin O2 Delivery Device O2 Liters/Min FiO2 Sodium Potassium Chloride Carbon Dioxide Anion Gap BUN Creatinine Estim Creat Clear Calc Estimated GFR Glucose POC Capillary Glucose Lactic Acid 4.1 H* Calcium Phosphorus Magnesium Iron TIBC % Saturation Ferritin Total Bilirubin AST ALT Alkaline Phosphatase Ammonia Total Creatine Kinase C-Reactive Protein Total Protein Albumin Vitamin B12 Folate Procalcitonin U Random Total Protein 85 Ur Random Sodium 41 Ur Random Urea 736 Urine Creatinine 127.7 Protein/Creat Ratio 2 0.67 H Nasal MRSA (PCR) Not detected Vancomycin Trough Hepatitis A IgM Ab Hep Bs Antigen Hepatitis C Ab Screen 05/02/24 05/03/24 05/03/24 19:35 05:00 05:10 WBC 7.9 RBC 3.19 L Hgb 11.1 L Hct 34.6 L MCV 108.5 H MCH 34.8 H MCHC 32.1 RDW 17.2 H Plt Count 137 L MPV 12.7 H Immature Gran % (Auto) 0.4 Neut % (Auto) 86.8 H Lymph % (Auto) 5.0 L [place] % (Auto) 6.9 Eos % (Auto) 0.6 Baso % (Auto) 0.3 Lymph # (Auto) 0.39 L [place] # (Auto) 0.5 Eos # (Auto) 0.1 Baso # (Auto) 0.0 Abs Immat Gran (auto) 0.03 Absolute Neuts (auto) 6.8 H Absolute Nucleated RBC 0.180 H Nucleated RBC % 2.3 H Platelet Estimate Slightly decreased Poikilocytosis 1+ Anisocytosis 1+ Macrocytosis 1+ Eli Cells 1+ Schistocytes Rare Absolute Retic 0.14 H Percent Retic 4.49 H Immature Retic Fraction 30.3 H Retic Hgb Content 30.1 Puncture Site ABG pH ABG pCO2 ABG pO2 ABG PO2/FiO2 Ratio ABG HCO3 ABG O2 Saturation ABG O2 Content ABG Base Excess A-a Gradient Oxyhemoglobin Total Hemoglobin O2 Delivery Device O2 Liters/Min FiO2 Sodium 140 Potassium 4.2 Chloride 112 H Carbon Dioxide 18 L Anion Gap 10 BUN 61 H Creatinine 1.90 H Estim Creat Clear Calc 15 Estimated GFR 25 L Glucose 75 POC Capillary Glucose Lactic Acid 3.4 H 2.5 H Calcium 9.1 Phosphorus 3.7 Magnesium 2.0 Iron 25 L TIBC 299 % Saturation 8 L Ferritin 344.00 H Total Bilirubin 0.7 AST 707 H ALT 649 H Alkaline Phosphatase 122 Ammonia Total Creatine Kinase C-Reactive Protein 3.1 H Total Protein 6.0 L Albumin 3.3 L Vitamin B12 > 1000.0 H Folate 10.5 Procalcitonin 0.2 U Random Total Protein Ur Random Sodium Ur Random Urea Urine Creatinine Protein/Creat Ratio 2 Nasal MRSA (PCR) Vancomycin Trough 7.9 L Hepatitis A IgM Ab Negative Hep Bs Antigen Negative Hepatitis C Ab Screen Negative 05/03/24 05/03/24 09:03 10:50 WBC RBC Hgb Hct MCV MCH MCHC RDW Plt Count MPV Immature Gran % (Auto) Neut % (Auto) Lymph % (Auto) [place] % (Auto) Eos % (Auto) Baso % (Auto) Lymph # (Auto) [place] # (Auto) Eos # (Auto) Baso # (Auto) Abs Immat Gran (auto) Absolute Neuts (auto) Absolute Nucleated RBC Nucleated RBC % Platelet Estimate Poikilocytosis Anisocytosis Macrocytosis [place] Cells Schistocytes Absolute Retic Percent Retic Immature Retic Fraction Retic Hgb Content Puncture Site ABG pH ABG pCO2 ABG pO2 ABG PO2/FiO2 Ratio ABG HCO3 ABG O2 Saturation ABG O2 Content ABG Base Excess A-a Gradient Oxyhemoglobin Total Hemoglobin O2 Delivery Device O2 Liters/Min FiO2 Sodium Potassium Chloride Carbon Dioxide Anion Gap BUN Creatinine Estim Creat Clear Calc Estimated GFR Glucose POC Capillary Glucose Lactic Acid 3.5 H Calcium Phosphorus Magnesium Iron TIBC % Saturation Ferritin Total Bilirubin AST ALT Alkaline Phosphatase Ammonia < 9 L Total Creatine Kinase C-Reactive Protein Total Protein Albumin Vitamin B12 Folate Procalcitonin U Random Total Protein Ur Random Sodium Ur Random Urea Urine Creatinine Protein/Creat Ratio 2 Nasal MRSA (PCR) Vancomycin Trough Hepatitis A IgM Ab Hep Bs Antigen Hepatitis C Ab Screen
[2024-05-03] MEDS: CEFEPIME 1 GM/NS 50 ML 1 GM/50 ML BAG IVPB ×2 (13:07→22:43)
[2024-05-03] MEDS: DOXYCYCLINE 100 MG/NS 100 ML 100 MG/100 ML BAG IVPB ×2 (13:07→22:35)
[2024-05-03] MEDS: TRIAMCINOLONE ACET 0.1% CREAM 15 GM TUBE 1 APPLIC TOPICAL (13:13)
--- NOTE | 2024-05-03 14:13 | P.PNGS_ITS ---
Progress Note: A&P Assessment and Plan (1) Metabolic acidosis: Code(s): E87.20 - Acidosis, unspecified Status: Acute Assessment and Plan: * Acidosis improved. No signs of abdominal source on exam. Continue supportive care. (2) Dehydration: Code(s): E86.0 - Dehydration Status: Acute (3) Acute kidney injury: Code(s): N17.9 - Acute kidney failure, unspecified Status: Acute (4) Acute delirium: Code(s): R41.0 - Disorientation, unspecified Status: Acute (5) Atrial fibrillation: Code(s): I48.91 - Unspecified atrial fibrillation Status: Acute (6) Right upper limb pain: Code(s): M79.601 - Pain in right arm Status: Acute Assessment and Plan: * Will get right shoulder xray. Subjective Subjective Date/Time Seen: 05/03/24 14:13 Interval history: No noticeable abdominal pain. Patient not wanting to move right arm today and family concerned that she might have dislocated shoulder. Exam GI: Inspection: non-distended GI Palp: Yes Soft to palpation, No Tenderness to palpation present (GI) and No Guarding due to palpation present (GI) Percussion: Yes normal to percussion Auscultation: normal bowel sounds Objective Data Vital Signs Vital Signs: Vital Signs - 24 hr 05/02/24 14:36 05/02/24 14:38 05/02/24 18:41 Temperature Pulse Rate 95 95 123 H Respiratory Rate 20 20 20 Blood Pressure 96/58 L Pulse Oximetry 100 Oxygen Delivery Fraction of Inspired Oxygen 05/02/24 20:27 05/02/24 20:28 05/02/24 20:37 Temperature Pulse Rate 108 H 108 H 111 H Respiratory Rate 20 20 Blood Pressure Pulse Oximetry 98 Oxygen Delivery Room Air Fraction of Inspired Oxygen 21 05/02/24 20:00 05/02/24 20:00 05/02/24 20:15 Temperature 34.8 C L 34.8 C L 34.8 C L Pulse Rate 111 H Respiratory Rate 20 Blood Pressure 96/58 L Pulse Oximetry 94 Oxygen Delivery Fraction of Inspired Oxygen 05/02/24 20:30 05/02/24 20:45 05/02/24 16:01 Temperature 34.9 C L 34.9 C L Pulse Rate 101 H Respiratory Rate Blood Pressure Pulse Oximetry Oxygen Delivery Fraction of Inspired Oxygen 05/02/24 21:00 05/02/24 21:30 05/02/24 22:00 Temperature 35.1 C L 35.1 C L 35.2 C L Pulse Rate Respiratory Rate Blood Pressure Pulse Oximetry Oxygen Delivery Fraction of Inspired Oxygen 05/02/24 22:30 05/02/24 20:00 05/02/24 20:00 Temperature 35.4 C L Pulse Rate 111 H 109 H Respiratory Rate 20 Blood Pressure Pulse Oximetry 94 Oxygen Delivery Room Air Fraction of Inspired Oxygen 05/02/24 22:00 05/02/24 23:00 05/02/24 23:30 Temperature 35.5 C L 35.5 C L Pulse Rate 112 H Respiratory Rate Blood Pressure Pulse Oximetry Oxygen Delivery Fraction of Inspired Oxygen 05/03/24 00:00 05/03/24 00:00 05/03/24 00:30 Temperature 35.6 C L 35.6 C L 35.6 C L Pulse Rate 106 H Respiratory Rate 18 Blood Pressure 116/77 Pulse Oximetry 96 Oxygen Delivery Fraction of Inspired Oxygen 05/03/24 00:00 05/03/24 01:00 05/03/24 01:30 Temperature 35.7 C L 35.9 C L Pulse Rate 106 H Respiratory Rate 18 Blood Pressure Pulse Oximetry 96 Oxygen Delivery Room Air Fraction of Inspired Oxygen 05/03/24 00:00 05/03/24 02:00 05/03/24 02:00 Temperature 36.4 C L Pulse Rate 119 H 113 H Respiratory Rate Blood Pressure Pulse Oximetry Oxygen Delivery Fraction of Inspired Oxygen 05/03/24 04:00 05/03/24 04:00 05/03/24 04:00 Temperature 36.2 C L Pulse Rate 124 H 124 H 135 H Respiratory Rate 20 20 Blood Pressure 116/71 Pulse Oximetry 95 95 Oxygen Delivery Room Air Fraction of Inspired Oxygen 05/03/24 05:54 05/03/24 07:58 05/03/24 08:56 Temperature 36.0 C L Pulse Rate 111 H 122 H Respiratory Rate Blood Pressure 121/75 Pulse Oximetry 97 96 Oxygen Delivery Room Air Fraction of Inspired Oxygen 05/03/24 08:56 05/03/24 08:59 05/03/24 09:04 Temperature Pulse Rate 115 H 140 H 123 H Respiratory Rate 20 20 Blood Pressure Pulse Oximetry 100 Oxygen Delivery Room Air Fraction of Inspired Oxygen 05/03/24 11:56 Temperature 36.2 C L Pulse Rate 131 H Respiratory Rate Blood Pressure 107/70 Pulse Oximetry 98 Oxygen Delivery Fraction of Inspired Oxygen Intake/Output Intake/Output: Intake & Output 04/30/24 05/01/24 05/02/24 05/03/24 23:59 23:59 23:59 23:59 Intake Total 1000 2080 2580 390 Output Total 250 110 Balance 1000 2080 2330 280 Meds/Results Medications: Active Medications Generic Name Dose Route Start Last Admin Trade Name Freq PRN Reason Stop Dose Admin Hydrocodone Bitart/Acetaminophen 1 tab 05/01/24 08:33 05/02/24 17:21 Hydrocodone/Acetaminophen (*Crx) 10-325 Mg Tablet PO 1 tab QID PRN Administration pain Albuterol/Ipratropium 3 ml 05/01/24 14:00 05/03/24 14:12 Ipratropium 0.5 Mg/Albuterol Sulfate 2.5 Mg Ampul.Neb 3 Ml INHALATION 3 ml Q6HRT FAHAD Administration Apixaban 2.5 mg 05/01/24 09:00 05/03/24 11:39 Apixaban 2.5 Mg Tablet PO Not Given BID FAHAD Docusate Sodium 100 mg 05/01/24 09:00 05/03/24 11:39 Docusate Sodium 100 Mg Capsule PO Not Given BID FAHAD Hydromorphone HCl 0.25 mg 05/03/24 13:43 Hydromorphone Hcl Inj (*Crx) 1 Mg/Ml Syr IV PUSH Q6H PRN Pain Rated 7-10 Doxycycline Hyclate 100 mg in 100 mls @ 100 mls/hr 05/01/24 09:00 05/03/24 13:07 Vibramycin 100 Mg/Ns 100 Ml IVPB 100 mls/hr Q12H FAHAD Administration Metronidazole 500 mg in 100 mls @ 100 mls/hr 05/01/24 10:00 05/03/24 13:08 Flagyl 500 Mg/Iso Soln 100 Ml IVPB 100 mls/hr Q8H FAHAD Administration Sodium Bicarbonate 150 meq/ 1,100 mls @ 50 mls/hr 05/01/24 13:10 05/02/24 17:21 Dextrose IV CONT 50 mls/hr .Q22H FAHAD Administration Cefepime HCl 1 gm in 50 mls @ 100 mls/hr 05/02/24 15:45 05/03/24 13:07 Maxipime 1 Gm/Ns 50 Ml IVPB 100 mls/hr Q12HR FAHAD Administration Levothyroxine Sodium 150 mcg 05/04/24 06:30 Levothyroxine Sodium 150 Mcg Tablet PO DAILY@0630 [facility] Triamcinolone Acetonide 1 applic 05/01/24 09:00 05/03/24 13:13 Triamcinolone Acet 0.1% Cream 15 Gm Tube TOPICAL 1 applic BID FAHAD Administration Vancomycin HCl 1 each 05/02/24 07:43 Vancomycin For Acute Kidney Injury IVPB PRN PRN Vancomycin Protocol Radiology Results: ITS Impressions Head CT 04/30/24 20:28 IMPRESSION: No acute intracranial findings. 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 Abdomen/Pelvis CT 04/30/24 23:26 IMPRESSION: 1. Bilateral moderate pleural effusion with bilateral atelectatic changes. Cardiomegaly. 2. No evidence of obstruction. 3. Minimal fluid in the pelvis. 4. Thickened wall of the rectum. Clinical evaluation advised. Upper Quadrant Ultrasound 05/01/24 09:07 IMPRESSION: 1: Nodular liver surface, compatible with cirrhosis. Trace ascites. 2: Mild biliary dilatation. Renal Ultrasound 05/02/24 14:22 IMPRESSION: 1. Normal right kidney without hydronephrosis. The left kidney was unable to visualized but appears mildly atrophic with no hydronephrosis at the time of the prior CT on 04/30/2024. 2. Small left pleural effusion. Chest X-Ray 05/02/24 14:29 Impression: Small bilateral pleural effusions with mild pulmonary edema pattern. Stable presumed cardiomegaly. Pericardial effusion isn't excluded. Chest/Abdomen/Pelvis CT 05/02/24 23:59 IMPRESSION: CHEST: 1. Bilateral moderate pleural effusion with adjacent atelectasis. Atelectatic changes in the lingula and middle lobe. 2. Cardiomegaly. ABDOMEN/PELVIS: 1. Fluid in the pelvis with fat stranding of the mesentery inflammatory changes should be considered. 2. Edema in the subcutaneous tissues which may indicate volume overload. Labs Labs: Laboratory Results - last 24 hr 05/02/24 05/02/24 05/02/24 14:17 14:26 14:35 WBC RBC Hgb Hct MCV MCH MCHC RDW Plt Count MPV Immature Gran % (Auto) Neut % (Auto) Lymph % (Auto) [place] % (Auto) Eos % (Auto) Baso % (Auto) Lymph # (Auto) [place] # (Auto) Eos # (Auto) Baso # (Auto) Abs Immat Gran (auto) Absolute Neuts (auto) Absolute Nucleated RBC Nucleated RBC % Platelet Estimate Poikilocytosis Anisocytosis Macrocytosis Eli Cells Schistocytes Absolute Retic Percent Retic Immature Retic Fraction Retic Hgb Content Puncture Site Right brachial ABG pH 7.275 L* ABG pCO2 44.1 ABG pO2 356.0 H ABG PO2/FiO2 Ratio 3.56 ABG HCO3 20.0 L ABG O2 Saturation 99.7 ABG O2 Content 18.4 ABG Base Excess -6.6 A-a Gradient 312.9 Oxyhemoglobin 99.3 Total Hemoglobin 12.5 O2 Delivery Device Non-rebreather mask O2 Liters/Min 15.0 FiO2 100 Sodium Potassium Chloride Carbon Dioxide Anion Gap BUN Creatinine Estim Creat Clear Calc Estimated GFR Glucose POC Capillary Glucose 110 H Lactic Acid 4.1 H* Calcium Phosphorus Magnesium Iron TIBC % Saturation Ferritin Total Bilirubin AST ALT Alkaline Phosphatase Ammonia C-Reactive Protein Total Protein Albumin Vitamin B12 Folate Procalcitonin U Random Total Protein Ur Random Sodium Ur Random Urea Urine Creatinine Protein/Creat Ratio 2 Nasal MRSA (PCR) Vancomycin Trough Hepatitis A IgM Ab Hep Bs Antigen Hepatitis C Ab Screen 05/02/24 05/02/24 05/02/24 17:26 18:54 19:35 WBC RBC Hgb Hct MCV MCH MCHC RDW Plt Count MPV Immature Gran % (Auto) Neut % (Auto) Lymph % (Auto) [place] % (Auto) Eos % (Auto) Baso % (Auto) Lymph # (Auto) [place] # (Auto) Eos # (Auto) Baso # (Auto) Abs Immat Gran (auto) Absolute Neuts (auto) Absolute Nucleated RBC Nucleated RBC % Platelet Estimate Poikilocytosis Anisocytosis Macrocytosis [place] Cells Schistocytes Absolute Retic Percent Retic Immature Retic Fraction Retic Hgb Content Puncture Site ABG pH ABG pCO2 ABG pO2 ABG PO2/FiO2 Ratio ABG HCO3 ABG O2 Saturation ABG O2 Content ABG Base Excess A-a Gradient Oxyhemoglobin Total Hemoglobin O2 Delivery Device O2 Liters/Min FiO2 Sodium Potassium Chloride Carbon Dioxide Anion Gap BUN Creatinine Estim Creat Clear Calc Estimated GFR Glucose POC Capillary Glucose Lactic Acid 3.4 H Calcium Phosphorus Magnesium Iron TIBC % Saturation Ferritin Total Bilirubin AST ALT Alkaline Phosphatase Ammonia C-Reactive Protein Total Protein Albumin Vitamin B12 Folate Procalcitonin U Random Total Protein 85 Ur Random Sodium 41 Ur Random Urea 736 Urine Creatinine 127.7 Protein/Creat Ratio 2 0.67 H Nasal MRSA (PCR) Not detected Vancomycin Trough Hepatitis A IgM Ab Hep Bs Antigen Hepatitis C Ab Screen 05/03/24 05/03/24 05/03/24 05:00 05:10 09:03 WBC 7.9 RBC 3.19 L Hgb 11.1 L Hct 34.6 L MCV 108.5 H MCH 34.8 H MCHC 32.1 RDW 17.2 H Plt Count 137 L MPV 12.7 H Immature Gran % (Auto) 0.4 Neut % (Auto) 86.8 H Lymph % (Auto) 5.0 L [place] % (Auto) 6.9 Eos % (Auto) 0.6 Baso % (Auto) 0.3 Lymph # (Auto) 0.39 L [place] # (Auto) 0.5 Eos # (Auto) 0.1 Baso # (Auto) 0.0 Abs Immat Gran (auto) 0.03 Absolute Neuts (auto) 6.8 H Absolute Nucleated RBC 0.180 H Nucleated RBC % 2.3 H Platelet Estimate Slightly decreased Poikilocytosis 1+ Anisocytosis 1+ Macrocytosis 1+ [place] Cells 1+ Schistocytes Rare Absolute Retic 0.14 H Percent Retic 4.49 H Immature Retic Fraction 30.3 H Retic Hgb Content 30.1 Puncture Site ABG pH ABG pCO2 ABG pO2 ABG PO2/FiO2 Ratio ABG HCO3 ABG O2 Saturation ABG O2 Content ABG Base Excess A-a Gradient Oxyhemoglobin Total Hemoglobin O2 Delivery Device O2 Liters/Min FiO2 Sodium 140 Potassium 4.2 Chloride 112 H Carbon Dioxide 18 L Anion Gap 10 BUN 61 H Creatinine 1.90 H Estim Creat Clear Calc 15 Estimated GFR 25 L Glucose 75 POC Capillary Glucose Lactic Acid 2.5 H 3.5 H Calcium 9.1 Phosphorus 3.7 Magnesium 2.0 Iron 25 L TIBC 299 % Saturation 8 L Ferritin 344.00 H Total Bilirubin 0.7 AST 707 H ALT 649 H Alkaline Phosphatase 122 Ammonia C-Reactive Protein 3.1 H Total Protein 6.0 L Albumin 3.3 L Vitamin B12 > 1000.0 H Folate 10.5 Procalcitonin 0.2 U Random Total Protein Ur Random Sodium Ur Random Urea Urine Creatinine Protein/Creat Ratio 2 Nasal MRSA (PCR) Vancomycin Trough 7.9 L Hepatitis A IgM Ab Negative Hep Bs Antigen Negative Hepatitis C Ab Screen Negative 05/03/24 10:50 WBC RBC Hgb Hct MCV MCH MCHC RDW Plt Count MPV Immature Gran % (Auto) Neut % (Auto) Lymph % (Auto) [place] % (Auto) Eos % (Auto) Baso % (Auto) Lymph # (Auto) [place] # (Auto) Eos # (Auto) Baso # (Auto) Abs Immat Gran (auto) Absolute Neuts (auto) Absolute Nucleated RBC Nucleated RBC % Platelet Estimate Poikilocytosis Anisocytosis Macrocytosis Eli Cells Schistocytes Absolute Retic Percent Retic Immature Retic Fraction Retic Hgb Content Puncture Site ABG pH ABG pCO2 ABG pO2 ABG PO2/FiO2 Ratio ABG HCO3 ABG O2 Saturation ABG O2 Content ABG Base Excess A-a Gradient Oxyhemoglobin Total Hemoglobin O2 Delivery Device O2 Liters/Min FiO2 Sodium Potassium Chloride Carbon Dioxide Anion Gap BUN Creatinine Estim Creat Clear Calc Estimated GFR Glucose POC Capillary Glucose Lactic Acid Calcium Phosphorus Magnesium Iron TIBC % Saturation Ferritin Total Bilirubin AST ALT Alkaline Phosphatase Ammonia < 9 L C-Reactive Protein Total Protein Albumin Vitamin B12 Folate Procalcitonin U Random Total Protein Ur Random Sodium Ur Random Urea Urine Creatinine Protein/Creat Ratio 2 Nasal MRSA (PCR) Vancomycin Trough Hepatitis A IgM Ab Hep Bs Antigen Hepatitis C Ab Screen
[2024-05-03] MEDS: HYDROmorphone HCL INJ (*CRX) 1 MG/ML SYR 0.25 MG IV PUSH (14:22)
[2024-05-03 16:47] LABS: Amphetamine Screen Urine Negative (Negative); Barbiturate Screen Urine Negative (Negative); Benzodiazepines Screen Urine Negative (Negative); Cannabinoid Screen Urine Negative (Negative); Cocaine Screen Urine Negative (Negative); Methadone Screen Urine Negative (Negative); Opiate Screen Urine Positive (Negative); Phencyclidine Screen Urine Negative (Negative)
[2024-05-03] MEDS: HYDROmorphone HCL INJ (*CRX) 1 MG/ML SYR 0.5 MG IV PUSH (18:16)
[2024-05-03] MEDS: METOPROLOL TARTRATE INJ 5 MG/5 ML VIAL IV PUSH ×2 (18:37→22:40)
[2024-05-03] MEDS: SODIUM BICARBONATE 8.4% 150 MEQ in DEXTROSE 5% 1,000 ML 950 ML 50 MEQ IV CONT (22:30)
[2024-05-04] VITALS (29 sets, daily range): BP systolic 103–138; BP diastolic 65–97; PULSE 76–147; RESP 15–28; TEMP 35.2–36.8; O2SAT 93–100
[2024-05-04] MEDS: IPRATROPIUM 0.5 MG/ALBUTEROL SULFATE 2.5 MG AMPUL.NEB 3 ML INHALATION ×2 (02:41→07:50)
[2024-05-04 04:18] LABS: Hematocrit 37.3 % (37.0-47.0); Hemoglobin 11.5 g/dL (12.0-15.0); Mean Corpuscular HGB Conc 30.8 g/dl (32-36); Mean Corpuscular Hemoglobin 34.2 pg (26-34); Mean Platelet Volume 12.9 fl (7.4-10.4); Platelet Count Result 148 k/mm3 (150-375); Red Blood Count 3.36 M/mm3 (4.2-5.4); Red Cell Distribution Width 17.5 % (11.5-14.5); White Blood Count 8.6 K/mm3 (4.5-10.0)
[2024-05-04 04:36] LABS: Alanine Aminotransferase 665 U/L (6-35); Albumin Level 3.6 g/dL (3.5-5.1); Alkaline Phosphatase 120 U/L (38-126); Anion Gap 9 mmol/L (4-12); Aspartate Amino Transferase 580 U/L (14-36); Bilirubin Direct 0.2 mg/dL (0-0.3); Bilirubin,Total 0.9 mg/dL (0.2-1.3); Blood Urea Nitrogen 58 mg/dL (7-17); Calcium 9.8 mg/dL (8.4-10.2); Carbon Dioxide 23 mmol/L (22-30); Chloride 110 mmol/L (98-107); Estimated CRCL calculation 15 ml/min; Estimated Glomerular Filt Rate 25; Glucose 103 mg/dL (65-110); Phosphorus 3.6 mg/dL (2.5-4.5); Potassium 4.7 mmol/L (3.4-5.0); Sodium 142 mmol/L (137-145)
[2024-05-04 04:54] LABS: Vancomycin Random 14.2 ug/mL (10-20)
[2024-05-04] MEDS: METOPROLOL TARTRATE INJ 5 MG/5 ML VIAL IV PUSH (05:06)
[2024-05-04] MEDS: metroNIDAZOLE 500 MG/ISO 100ML 500 MG/100 ML BAG 100 MG IVPB ×3 (05:08→21:47)
[2024-05-04] MEDS: VANCOMYCIN 1,000 MG/NS 250 ML 1,000 MG/250 ML BAG 250 MG IVPB (06:51)
--- NOTE | 2024-05-04 08:03 | P.PNIM_ITS ---
Progress Note: A&P Assessment and Plan (1) Acute delirium: Code(s): R41.0 - Disorientation, unspecified Status: Acute Assessment and Plan: * Consider drug or alcohol withdrawal * No evidence for new stroke on CT 04/30 or f/u CT 05/03 (MRI not done due to cervical hardware) * Dehydration with acute kidney injury likely contributing * 1 (of 2) abnormal blood culture with staphylococcus capitis is likely contaminant * No evidence for pneumonia on CT * CT did suggest thickening of rectum * Also had pelvic fluid and bilateral pleural effusions and cirrhosis * 05/03 continuing cefepime, metronidazole, vancomycin pending f/u labs, mental status (2) UTI (urinary tract infection) due to Enterococcus: Code(s): N39.0 - Urinary tract infection, site not specified; B95.2 - Enterococcus as the cause of diseases classified elsewhere Status: Acute Assessment and Plan: * Culture with multiple organisms and 50-100k enterococcus sensitive to vanc (has PCN allergy), NOT definitive for UTI * Procalcitonin was 0.2 * This could be a contributing factor to her MS changes but clinically seems unlikely (d/w family 05/03/2024) (3) Acute kidney injury: Code(s): N17.9 - Acute kidney failure, unspecified Status: Acute Assessment and Plan: * 05/03 creatinine improved to 1.9 with hydration * 05/04 creatinine at 1.9, no anion gap, switched to DR/LR at 75 ml/hr and stopped IV NaHCO3 (4) Atrial fibrillation: Code(s): I48.91 - Unspecified atrial fibrillation Status: Acute Assessment and Plan: * 05/03 remains tachycardic with rate in 121 agitated * Continue monitoring on IMU * 05/04 remained tachycardic (120s) even while sleeping in spite of iv metoprolol 5 mg q 6h, so started diltiazem drip (5) Pleural effusion: Code(s): J90 - Pleural effusion, not elsewhere classified Status: Acute Assessment and Plan: * Bilateral * Suspect related to cirrhosis * F/u CXR 05/05 * Consider U/s guided thoracentesis (6) Transaminitis: Code(s): R74.01 - Elevation of levels of liver transaminase levels Status: Acute Assessment and Plan: * Etiology unclear, possibly shock liver due to hypotension at admission but bp was documented no lower than 90's systolic in ED * CT and ultrasound findings consistent with cirrhosis * Family denies any alcohol intake other than Nyquil in the past and occasional wine * Acute hepatitis panel negative * 05/04 AST, ALT improving (580/665) (7) Cirrhosis of liver: Code(s): K74.60 - Unspecified cirrhosis of liver Status: Acute Assessment and Plan: * Differential diagnosis includes surreptitious alcohol use, drug induced, autoimmune, INMAN * Lab negative for HCV, HBV (8) Heart failure with preserved ejection fraction: Code(s): I50.30 - Unspecified diastolic (congestive) heart failure Status: Acute Assessment and Plan: * Monitor fluid balance with rehydration (9) HTN (hypertension): Code(s): I10 - Essential (primary) hypertension Status: Acute Assessment and Plan: * Stable (10) CAD (coronary artery disease): Qualifiers: Coronary Disease-Associated Artery/Lesion type: unspecified vessel or lesion type Code(s): I25.10 - Atherosclerotic heart disease of [place] coronary artery without angina pectoris Status: Acute Assessment and Plan: * No sign of acute coronary syndrome (11) Hypothyroidism: Code(s): E03.9 - Hypothyroidism, unspecified Status: Acute Assessment and Plan: * Admission thyroid function studies with elevated TSH normal free T4 and low T3 * 05/03 reduce levothyroxine dose to home dose, as no need to increase based on admission studies * 05/04 levothyroxine on hold while NPO (12) Dementia: Code(s): F03.90 - Unspecified dementia, unspecified severity, without behavioral disturbance, psychotic disturbance, mood disturbance, and anxiety Status: Acute Assessment and Plan: * Likely vascular related to 2019 stroke * 05/03/2024 CT head with marked chronic ischemic changes (13) Hx of completed stroke: Code(s): Z86.73 - Personal history of transient ischemic attack (TIA), and cerebral infarction without residual deficits Status: Acute Assessment and Plan: * Dysphagia and dysarthria Subjective Date/time seen: 05/04/24 08:03 Interval history: Slept last night. More calm this morning. However after receiving hydromorphone last evening her oxygen saturation dipped to 88%. Review of Systems Review of Systems: ROS unobtainable: Yes unobtainable due to medical condition Exam Narrative: HEENT: PERRL, sclerae nonicteric, pharyngeal mucosa pink and intact NECK: No JVD CHEST: Clear to auscultation. Normal effort. HEART: NL S1/S2, irregular, no audible murmur. ABDOMEN: BS+, soft, nontender, no mass, no bruits EXTREMITIES: No cyanosis, edema, or clubbing NEUROLOGIC: CN intact and symmetric to inspection. Speech unintelligible. MUSCULOSKELETAL: Tone and strength symmetric. Tone and strength symmetric, Babinski negative. PSYCH: Alert. Seems to be oriented to person. Does not follow commands but makes eye contact. Objective Data Vital Signs Vital Signs: Vital Signs - 24 hr 05/03/24 08:56 05/03/24 08:56 05/03/24 08:59 Temperature Pulse Rate 115 H 140 H Respiratory Rate 20 Blood Pressure Pulse Oximetry 96 100 Oxygen Delivery Room Air Room Air Oxygen Flow Rate Fraction of Inspired Oxygen 05/03/24 09:04 05/03/24 11:56 05/03/24 14:12 Temperature 97.1 F L Pulse Rate 123 H 131 H 105 H Respiratory Rate 20 14 Blood Pressure 107/70 Pulse Oximetry 98 Oxygen Delivery Oxygen Flow Rate Fraction of Inspired Oxygen 05/03/24 14:18 05/03/24 15:25 05/03/24 10:00 Temperature 97.7 F Pulse Rate 125 H 115 H 128 H Respiratory Rate 14 Blood Pressure 130/72 Pulse Oximetry 99 Oxygen Delivery Oxygen Flow Rate Fraction of Inspired Oxygen 05/03/24 12:00 05/03/24 14:00 05/03/24 16:00 Temperature Pulse Rate 113 H 132 H 114 H Respiratory Rate Blood Pressure Pulse Oximetry Oxygen Delivery Oxygen Flow Rate Fraction of Inspired Oxygen 05/03/24 12:00 05/03/24 16:00 05/03/24 18:37 Temperature Pulse Rate 144 H Respiratory Rate Blood Pressure Pulse Oximetry Oxygen Delivery Room Air Room Air Oxygen Flow Rate Fraction of Inspired Oxygen 05/03/24 18:00 05/03/24 20:00 05/03/24 20:36 Temperature 97.6 F Pulse Rate 109 H 128 H Respiratory Rate 18 Blood Pressure 129/90 Pulse Oximetry 98 95 Oxygen Delivery Room Air Oxygen Flow Rate Fraction of Inspired Oxygen 21 05/03/24 20:36 05/03/24 22:40 05/04/24 00:00 Temperature 97.8 F Pulse Rate 118 H 138 H 128 H Respiratory Rate 15 22 H Blood Pressure 114/81 Pulse Oximetry 99 Oxygen Delivery Oxygen Flow Rate Fraction of Inspired Oxygen 05/03/24 20:00 05/03/24 20:20 05/04/24 00:00 Temperature Pulse Rate 128 H 126 H 128 H Respiratory Rate 18 20 22 H Blood Pressure Pulse Oximetry 98 88 L 99 Oxygen Delivery Room Air Room Air Nasal Cannula Oxygen Flow Rate 2 Fraction of Inspired Oxygen 05/03/24 20:00 05/03/24 22:00 05/04/24 00:00 Temperature Pulse Rate 120 H 136 H 144 H Respiratory Rate Blood Pressure Pulse Oximetry Oxygen Delivery Oxygen Flow Rate Fraction of Inspired Oxygen 05/04/24 02:42 05/04/24 02:48 05/03/24 20:45 Temperature Pulse Rate 135 H 140 H 120 H Respiratory Rate 15 15 15 Blood Pressure Pulse Oximetry Oxygen Delivery Oxygen Flow Rate Fraction of Inspired Oxygen 05/04/24 03:47 05/04/24 05:06 05/04/24 04:00 Temperature 97.7 F Pulse Rate 138 H 134 H 138 H Respiratory Rate 22 H 22 H Blood Pressure 103/68 Pulse Oximetry 100 100 Oxygen Delivery Nasal Cannula Oxygen Flow Rate 2 Fraction of Inspired Oxygen 05/04/24 02:00 05/04/24 04:00 05/04/24 06:00 Temperature Pulse Rate 143 H 147 H 112 H Respiratory Rate Blood Pressure Pulse Oximetry Oxygen Delivery Oxygen Flow Rate Fraction of Inspired Oxygen 05/04/24 07:35 05/04/24 07:57 Temperature 97.8 F Pulse Rate 139 H 123 H Respiratory Rate 22 H 15 Blood Pressure 122/75 Pulse Oximetry 99 Oxygen Delivery Oxygen Flow Rate Fraction of Inspired Oxygen Intake/Output Intake/Output: Intake & Output 05/01/24 05/02/24 05/03/24 05/04/24 23:59 23:59 23:59 23:59 Intake Total 2080 2580 2240 350 Output Total 250 330 700 Balance 2080 2330 1910 -350 Meds/Results Medications: Active Medications Generic Name Dose Route Start Last Admin Trade Name Freq PRN Reason Stop Dose Admin Hydrocodone Bitart/Acetaminophen 1 tab 05/01/24 08:33 05/02/24 17:21 Hydrocodone/Acetaminophen (*Crx) 10-325 Mg Tablet PO 1 tab QID PRN Administration pain Albuterol/Ipratropium 3 ml 05/01/24 14:00 05/04/24 07:50 Ipratropium 0.5 Mg/Albuterol Sulfate 2.5 Mg Ampul.Neb 3 Ml INHALATION 3 ml Q6HRT FAHAD Administration Apixaban 2.5 mg 05/01/24 09:00 05/03/24 14:21 Apixaban 2.5 Mg Tablet PO Not Given BID FAHAD Hydromorphone HCl 0.5 mg 05/03/24 16:58 05/03/24 18:16 Hydromorphone Hcl Inj (*Crx) 1 Mg/Ml Syr IV PUSH 0.5 mg Q6H PRN Administration Pain Rated 7-10 Doxycycline Hyclate 100 mg in 100 mls @ 100 mls/hr 05/01/24 09:00 05/03/24 23:35 Vibramycin 100 Mg/Ns 100 Ml IVPB Infused Q12H FAHAD Infusion Cefepime HCl 1 gm in 50 mls @ 100 mls/hr 05/02/24 15:45 05/03/24 23:13 Maxipime 1 Gm/Ns 50 Ml IVPB Infused Q12HR FAHAD Infusion Metronidazole 500 mg in 100 mls @ 100 mls/hr 05/03/24 21:00 05/04/24 06:08 Flagyl 500 Mg/Iso Soln 100 Ml IVPB Infused Q8HR FAHAD Infusion Lactated Ringer's 1,000 mls @ 75 mls/hr 05/04/24 08:00 Lr - Lactated Ringers Iv IV CONT .[id number] [facility] Levothyroxine Sodium 150 mcg 05/04/24 06:30 05/04/24 05:13 Levothyroxine Sodium 150 Mcg Tablet PO Not Given DAILY@0630 [facility] Metoprolol Tartrate 5 mg 05/03/24 17:00 05/04/24 05:06 Metoprolol Tartrate Inj 5 Mg/5 Ml Vial IV PUSH 5 mg Q6H FAHAD Administration Triamcinolone Acetonide 1 applic 05/01/24 09:00 05/03/24 18:43 Triamcinolone Acet 0.1% Cream 15 Gm Tube TOPICAL Not Given BID [facility] Vancomycin HCl 1 each 05/02/24 07:43 Vancomycin For Acute Kidney Injury IVPB PRN PRN Vancomycin Protocol Radiology Results: ITS Impressions Abdomen/Pelvis CT 04/30/24 23:26 IMPRESSION: 1. Bilateral moderate pleural effusion with bilateral atelectatic changes. Cardiomegaly. 2. No evidence of obstruction. 3. Minimal fluid in the pelvis. 4. Thickened wall of the rectum. Clinical evaluation advised. Upper Quadrant Ultrasound 05/01/24 09:07 IMPRESSION: 1: Nodular liver surface, compatible with cirrhosis. Trace ascites. 2: Mild biliary dilatation. Renal Ultrasound 05/02/24 14:22 IMPRESSION: 1. Normal right kidney without hydronephrosis. The left kidney was unable to visualized but appears mildly atrophic with no hydronephrosis at the time of the prior CT on 04/30/2024. 2. Small left pleural effusion. Chest X-Ray 05/02/24 14:29 Impression: Small bilateral pleural effusions with mild pulmonary edema pattern. Stable presumed cardiomegaly. Pericardial effusion isn't excluded. Chest/Abdomen/Pelvis CT 05/02/24 23:59 IMPRESSION: CHEST: 1. Bilateral moderate pleural effusion with adjacent atelectasis. Atelectatic changes in the lingula and middle lobe. 2. Cardiomegaly. ABDOMEN/PELVIS: 1. Fluid in the pelvis with fat stranding of the mesentery inflammatory changes should be considered. 2. Edema in the subcutaneous tissues which may indicate volume overload. Shoulder X-Ray 05/03/24 15:55 IMPRESSION: No acute osseous abnormality right shoulder. 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 Consider MRI of the shoulder if there is concern for soft tissue internal derangement. Head CT 05/04/24 06:25 IMPRESSION: 1. 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 No acute intracranial process. 2. Age-related changes including moderate diffuse volume loss and moderate scattered white matter hypoattenuation consistent with chronic small vessel ischemic disease. Modified Barium Swallow 05/04/24 07:11 IMPRESSION: Pharyngeal dysphagia with laryngeal penetration without aspiration. Please correlate with speech pathologist findings and specific feeding recommendations. Labs Labs: Laboratory Results - last 24 hr 05/03/24 05/03/24 05/03/24 05:00 05:10 09:03 WBC RBC Hgb Hct MCV MCH MCHC RDW Plt Count MPV Absolute Retic 0.14 H Percent Retic 4.49 H Immature Retic Fraction 30.3 H Retic Hgb Content 30.1 Sodium Potassium Chloride Carbon Dioxide Anion Gap BUN Creatinine Estim Creat Clear Calc Estimated GFR Glucose Lactic Acid 3.5 H Calcium Phosphorus Iron 25 L TIBC 299 % Saturation 8 L Ferritin 344.00 H Total Bilirubin Direct Bilirubin AST ALT Alkaline Phosphatase Ammonia C-Reactive Protein 3.1 H Total Protein Albumin Vitamin B12 > 1000.0 H Folate 10.5 Procalcitonin 0.2 Random Vancomycin Urine Opiates Screen Urine Methadone Screen Ur Barbiturates Screen Ur Phencyclidine Scrn Ur Amphetamine Screen U Benzodiazepines Scrn Urine Cocaine Screen U Cannabinoids Screen Hepatitis A IgM Ab Negative Hep Bs Antigen Negative Hepatitis C Ab Screen Negative 05/03/24 05/03/24 05/04/24 10:50 16:20 04:02 WBC 8.6 RBC 3.36 L Hgb 11.5 L Hct 37.3 MCV 111.0 H MCH 34.2 H MCHC 30.8 L RDW 17.5 H Plt Count 148 L MPV 12.9 H Absolute Retic Percent Retic Immature Retic Fraction Retic Hgb Content Sodium 142 Potassium 4.7 Chloride 110 H Carbon Dioxide 23 Anion Gap 9 BUN 58 H Creatinine 1.90 H Estim Creat Clear Calc 15 Estimated GFR 25 L Glucose 103 Lactic Acid Calcium 9.8 Phosphorus 3.6 Iron TIBC % Saturation Ferritin Total Bilirubin 0.9 Direct Bilirubin 0.2 AST 580 H ALT 665 H Alkaline Phosphatase 120 Ammonia < 9 L C-Reactive Protein Total Protein 6.0 L Albumin 3.6 Vitamin B12 Folate Procalcitonin Random Vancomycin 14.2 Urine Opiates Screen Positive A Urine Methadone Screen Negative Ur Barbiturates Screen Negative Ur Phencyclidine Scrn Negative Ur Amphetamine Screen Negative U Benzodiazepines Scrn Negative Urine Cocaine Screen Negative U Cannabinoids Screen Negative Hepatitis A IgM Ab Hep Bs Antigen Hepatitis C Ab Screen
[2024-05-04 08:09] LABS: Hepatitis B Core Ab Total NON-REACTIVE (NON-REACTIVE)
--- NOTE | 2024-05-04 09:13 | PM.PNNEP ---
Progress Note: A&P Assessment and Plan (1) Stage 3b chronic kidney disease: Code(s): N18.32 - Chronic kidney disease, stage 3b Status: Acute Assessment and Plan: The patient has chronic kidney disease. Most likely related to vascular disease and hypertension. Baseline creatinine seems to be 1.1-1.2. (2) Acute kidney injury: Code(s): N17.9 - Acute kidney failure, unspecified Status: Acute Assessment and Plan: The patient has a newly high creatinine. She appears dehydrated on exam. She is getting treated with IV fluids. Fractional excretion of urea showed dehydration. CK is normal On ultrasound, Right kidney shows no hydro. left kidney not visualized. The CT scan was viewed by the person who read the ultrasound and it showed some hydro on the left kidney with a mildly small kidney. urology consult canceled. The patient was not urinating. Now has a Gilbert Catheter in place. she is getting IV fluids and antibiotics. Her creatinine is better. (3) Pyuria: Code(s): R82.81 - Pyuria Status: Acute Assessment and Plan: Urine cultures are pending. She is on Cefepime and vancomycin. (4) HTN (hypertension): Code(s): I10 - Essential (primary) hypertension Status: Acute Assessment and Plan: blood pressure doing well at 1:22 a.m. (5) Acute hyperkalemia: Code(s): E87.5 - Hyperkalemia Status: Acute Assessment and Plan: resolved (6) Metabolic acidosis: Code(s): E87.20 - Acidosis, unspecified Status: Acute Assessment and Plan: resolved Subjective Date/time seen: 05/04/24 09:13 Interval history: Esperanza is about the same. Aphasic. Cannot give any history. She looks comfortable in bed Exam Narrative: WDWN in NAD skin no rash head ncat lungs clear bilaterally cor reg no rub or gallop abd BS+ nontender and soft ext no edema. Objective Data Vital Signs Vital Signs: Vital Signs - 24 hr 05/03/24 11:56 05/03/24 14:12 05/03/24 14:18 Temperature 97.1 F L Pulse Rate 131 H 105 H 125 H Respiratory Rate 14 14 Blood Pressure 107/70 Pulse Oximetry 98 Oxygen Delivery Oxygen Flow Rate Fraction of Inspired Oxygen 05/03/24 15:25 05/03/24 10:00 05/03/24 12:00 Temperature 97.7 F Pulse Rate 115 H 128 H 113 H Respiratory Rate Blood Pressure 130/72 Pulse Oximetry 99 Oxygen Delivery Oxygen Flow Rate Fraction of Inspired Oxygen 05/03/24 14:00 05/03/24 16:00 05/03/24 12:00 Temperature Pulse Rate 132 H 114 H Respiratory Rate Blood Pressure Pulse Oximetry Oxygen Delivery Room Air Oxygen Flow Rate Fraction of Inspired Oxygen 05/03/24 16:00 05/03/24 18:37 05/03/24 18:00 Temperature Pulse Rate 144 H 109 H Respiratory Rate Blood Pressure Pulse Oximetry Oxygen Delivery Room Air Oxygen Flow Rate Fraction of Inspired Oxygen 05/03/24 20:00 05/03/24 20:36 05/03/24 20:36 Temperature 97.6 F Pulse Rate 128 H 118 H Respiratory Rate 18 15 Blood Pressure 129/90 Pulse Oximetry 98 95 Oxygen Delivery Room Air Oxygen Flow Rate Fraction of Inspired Oxygen 21 05/03/24 22:40 05/04/24 00:00 05/03/24 20:00 Temperature 97.8 F Pulse Rate 138 H 128 H 128 H Respiratory Rate 22 H 18 Blood Pressure 114/81 Pulse Oximetry 99 98 Oxygen Delivery Room Air Oxygen Flow Rate Fraction of Inspired Oxygen 05/03/24 20:20 05/04/24 00:00 05/03/24 20:00 Temperature Pulse Rate 126 H 128 H 120 H Respiratory Rate 20 22 H Blood Pressure Pulse Oximetry 88 L 99 Oxygen Delivery Room Air Nasal Cannula Oxygen Flow Rate 2 Fraction of Inspired Oxygen 05/03/24 22:00 05/04/24 00:00 05/04/24 02:42 Temperature Pulse Rate 136 H 144 H 135 H Respiratory Rate 15 Blood Pressure Pulse Oximetry Oxygen Delivery Oxygen Flow Rate Fraction of Inspired Oxygen 05/04/24 02:48 05/03/24 20:45 05/04/24 03:47 Temperature 97.7 F Pulse Rate 140 H 120 H 138 H Respiratory Rate 15 15 22 H Blood Pressure 103/68 Pulse Oximetry 100 Oxygen Delivery Oxygen Flow Rate Fraction of Inspired Oxygen 05/04/24 05:06 05/04/24 04:00 05/04/24 02:00 Temperature Pulse Rate 134 H 138 H 143 H Respiratory Rate 22 H Blood Pressure Pulse Oximetry 100 Oxygen Delivery Nasal Cannula Oxygen Flow Rate 2 Fraction of Inspired Oxygen 05/04/24 04:00 05/04/24 06:00 05/04/24 07:35 Temperature 97.8 F Pulse Rate 147 H 112 H 139 H Respiratory Rate 22 H Blood Pressure 122/75 Pulse Oximetry 99 Oxygen Delivery Oxygen Flow Rate Fraction of Inspired Oxygen 05/04/24 07:57 Temperature Pulse Rate 123 H Respiratory Rate 15 Blood Pressure Pulse Oximetry Oxygen Delivery Oxygen Flow Rate Fraction of Inspired Oxygen Intake/Output Intake/Output: Intake & Output 05/01/24 05/02/24 05/03/24 05/04/24 23:59 23:59 23:59 23:59 Intake Total 2080 2580 2240 350 Output Total 250 330 700 Balance 2080 2330 1910 -350 Meds/Results Medications: Active Medications Generic Name Dose Route Start Last Admin Trade Name Freq PRN Reason Stop Dose Admin Hydrocodone Bitart/Acetaminophen 1 tab 05/01/24 08:33 05/02/24 17:21 Hydrocodone/Acetaminophen (*Crx) 10-325 Mg Tablet PO 1 tab QID PRN Administration pain Apixaban 2.5 mg 05/01/24 09:00 05/03/24 14:21 Apixaban 2.5 Mg Tablet PO Not Given BID FAHAD Diltiazem HCl 10 mg 05/04/24 09:10 Diltiazem Hcl Inj 25 Mg/5 Ml Vial IV PUSH 05/04/24 09:11 ONCE ONE Hydromorphone HCl 0.5 mg 05/03/24 16:58 05/03/24 18:16 Hydromorphone Hcl Inj (*Crx) 1 Mg/Ml Syr IV PUSH 0.5 mg Q6H PRN Administration Pain Rated 7-10 Cefepime HCl 1 gm in 50 mls @ 100 mls/hr 05/02/24 15:45 05/03/24 23:13 Maxipime 1 Gm/Ns 50 Ml IVPB Infused Q12HR FAHAD Infusion Metronidazole 500 mg in 100 mls @ 100 mls/hr 05/03/24 21:00 05/04/24 06:08 Flagyl 500 Mg/Iso Soln 100 Ml IVPB Infused Q8HR FAHAD Infusion Lactated Ringer's 1,000 mls @ 75 mls/hr 05/04/24 08:00 Lr - Lactated Ringers Iv IV CONT .[id number] FAHAD Diltiazem HCl 100 mg in 100 mls @ 5 mls/hr 05/04/24 09:10 Cardizem 100 Mg/100 Ml IV CONT .Q20H FAHAD 5 MG/HR Levothyroxine Sodium 150 mcg 05/04/24 06:30 05/04/24 05:13 Levothyroxine Sodium 150 Mcg Tablet PO Not Given DAILY@0630 [facility] Triamcinolone Acetonide 1 applic 05/01/24 09:00 05/03/24 18:43 Triamcinolone Acet 0.1% Cream 15 Gm Tube TOPICAL Not Given BID FAHAD Vancomycin HCl 1 each 05/02/24 07:43 Vancomycin For Acute Kidney Injury IVPB PRN PRN Vancomycin Protocol Radiology Results: ITS Impressions Abdomen/Pelvis CT 04/30/24 23:26 IMPRESSION: 1. Bilateral moderate pleural effusion with bilateral atelectatic changes. Cardiomegaly. 2. No evidence of obstruction. 3. Minimal fluid in the pelvis. 4. Thickened wall of the rectum. Clinical evaluation advised. Upper Quadrant Ultrasound 05/01/24 09:07 IMPRESSION: 1: Nodular liver surface, compatible with cirrhosis. Trace ascites. 2: Mild biliary dilatation. Renal Ultrasound 05/02/24 14:22 IMPRESSION: 1. Normal right kidney without hydronephrosis. The left kidney was unable to visualized but appears mildly atrophic with no hydronephrosis at the time of the prior CT on 04/30/2024. 2. Small left pleural effusion. Chest X-Ray 05/02/24 14:29 Impression: Small bilateral pleural effusions with mild pulmonary edema pattern. Stable presumed cardiomegaly. Pericardial effusion isn't excluded. Chest/Abdomen/Pelvis CT 05/02/24 23:59 IMPRESSION: CHEST: 1. Bilateral moderate pleural effusion with adjacent atelectasis. Atelectatic changes in the lingula and middle lobe. 2. Cardiomegaly. ABDOMEN/PELVIS: 1. Fluid in the pelvis with fat stranding of the mesentery inflammatory changes should be considered. 2. Edema in the subcutaneous tissues which may indicate volume overload. Shoulder X-Ray 05/03/24 15:55 IMPRESSION: No acute osseous abnormality right shoulder. 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 Consider MRI of the shoulder if there is concern for soft tissue internal derangement. Head CT 05/04/24 06:25 IMPRESSION: 1. 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 No acute intracranial process. 2. Age-related changes including moderate diffuse volume loss and moderate scattered white matter hypoattenuation consistent with chronic small vessel ischemic disease. Modified Barium Swallow 05/04/24 07:11 IMPRESSION: Pharyngeal dysphagia with laryngeal penetration without aspiration. Please correlate with speech pathologist findings and specific feeding recommendations. Labs Labs: Laboratory Results - last 24 hr 05/03/24 05/03/24 05/03/24 05:00 05:10 09:03 WBC RBC Hgb Hct MCV MCH MCHC RDW Plt Count MPV Absolute Retic 0.14 H Percent Retic 4.49 H Immature Retic Fraction 30.3 H Retic Hgb Content 30.1 Sodium Potassium Chloride Carbon Dioxide Anion Gap BUN Creatinine Estim Creat Clear Calc Estimated GFR Glucose Lactic Acid 3.5 H Calcium Phosphorus Iron 25 L TIBC 299 % Saturation 8 L Ferritin 344.00 H Total Bilirubin Direct Bilirubin AST ALT Alkaline Phosphatase Ammonia C-Reactive Protein 3.1 H Total Protein Albumin Vitamin B12 > 1000.0 H Folate 10.5 Procalcitonin 0.2 Random Vancomycin Urine Opiates Screen Urine Methadone Screen Ur Barbiturates Screen Ur Phencyclidine Scrn Ur Amphetamine Screen U Benzodiazepines Scrn Urine Cocaine Screen U Cannabinoids Screen Hepatitis A IgM Ab Negative Hep Bs Antigen Negative Hep B Core Total Ab Non-reactive Hepatitis C Ab Screen Negative 05/03/24 05/03/24 05/04/24 10:50 16:20 04:02 WBC 8.6 RBC 3.36 L Hgb 11.5 L Hct 37.3 MCV 111.0 H MCH 34.2 H MCHC 30.8 L RDW 17.5 H Plt Count 148 L MPV 12.9 H Absolute Retic Percent Retic Immature Retic Fraction Retic Hgb Content Sodium 142 Potassium 4.7 Chloride 110 H Carbon Dioxide 23 Anion Gap 9 BUN 58 H Creatinine 1.90 H Estim Creat Clear Calc 15 Estimated GFR 25 L Glucose 103 Lactic Acid Calcium 9.8 Phosphorus 3.6 Iron TIBC % Saturation Ferritin Total Bilirubin 0.9 Direct Bilirubin 0.2 AST 580 H ALT 665 H Alkaline Phosphatase 120 Ammonia < 9 L C-Reactive Protein Total Protein 6.0 L Albumin 3.6 Vitamin B12 Folate Procalcitonin Random Vancomycin 14.2 Urine Opiates Screen Positive A Urine Methadone Screen Negative Ur Barbiturates Screen Negative Ur Phencyclidine Scrn Negative Ur Amphetamine Screen Negative U Benzodiazepines Scrn Negative Urine Cocaine Screen Negative U Cannabinoids Screen Negative Hepatitis A IgM Ab Hep Bs Antigen Hep B Core Total Ab Hepatitis C Ab Screen
[2024-05-04] MEDS: LACTATED RINGERS 1,000 ML 75 ML IV CONT ×2 (10:04→21:55)
[2024-05-04] MEDS: dilTIAZem 100 MG/100 ML 100 MG/100 ML BAG IV CONT ×2 (10:06→21:52)
[2024-05-04] MEDS: TRIAMCINOLONE ACET 0.1% CREAM 15 GM TUBE 1 APPLIC TOPICAL ×2 (10:06→18:03)
[2024-05-04] MEDS: CEFEPIME 1 GM/NS 50 ML 1 GM/50 ML BAG IVPB ×2 (10:06→21:02)
[2024-05-04] MEDS: dilTIAZem HCl INJ 25 MG/5 ML VIAL 10 MG IV PUSH (10:07)
[2024-05-05] VITALS (42 sets, daily range): BP systolic 112–146; BP diastolic 67–95; PULSE 89–136; RESP 16–28; TEMP 35.5–36.6; O2SAT 93–97
[2024-05-05] MEDS: HYDROCORTISONE SODIUM SUCCINATE 100 MG/2 ML VIAL IV PUSH ×3 (01:52→20:37)
[2024-05-05 04:42] LABS: Hematocrit 35.6 % (37.0-47.0); Hemoglobin 11.3 g/dL (12.0-15.0); Immature Platelet Fraction Pct 11.5 % (0.9-11.2); Mean Corpuscular HGB Conc 31.7 g/dl (32-36); Mean Corpuscular Hemoglobin 34.3 pg (26-34); Mean Corpuscular Volume 108.2 fl (80-100); Mean Platelet Volume 13.1 fl (7.4-10.4); Platelet Count Result 140 k/mm3 (150-375); Red Blood Count 3.29 M/mm3 (4.2-5.4); Red Cell Distribution Width 17.4 % (11.5-14.5); White Blood Count 9.8 K/mm3 (4.5-10.0)
[2024-05-05 04:51] LABS: INR 2.3; Prothrombin Time 25.2 Seconds (11.1-14.7)
[2024-05-05 04:53] LABS: Alanine Aminotransferase 535 U/L (6-35); Albumin Level 3.6 g/dL (3.5-5.1); Alkaline Phosphatase 125 U/L (38-126); Anion Gap 13 mmol/L (4-12); Aspartate Amino Transferase 312 U/L (14-36); Bilirubin Direct 0.2 mg/dL (0-0.3); Bilirubin,Total 1.2 mg/dL (0.2-1.3); Blood Urea Nitrogen 56 mg/dL (7-17); Carbon Dioxide 19 mmol/L (22-30); Chloride 111 mmol/L (98-107); Estimated CRCL calculation 18 ml/min; Estimated Glomerular Filt Rate 30; Glucose 112 mg/dL (65-110); Potassium 4.2 mmol/L (3.4-5.0); Sodium 143 mmol/L (137-145)
[2024-05-05 05:03] LABS: Vancomycin Random 18.4 ug/mL (10-20)
[2024-05-05] MEDS: metroNIDAZOLE 500 MG/ISO 100ML 500 MG/100 ML BAG 100 MG IVPB ×2 (05:44→14:59)
[2024-05-05] MEDS: CEFEPIME 1 GM/NS 50 ML 1 GM/50 ML BAG IVPB (08:38)
[2024-05-05] MEDS: TRIAMCINOLONE ACET 0.1% CREAM 15 GM TUBE 1 APPLIC TOPICAL ×2 (08:39→17:49)
--- NOTE | 2024-05-05 09:26 | PM.IMPN ---
Progress Note: A&P Assessment and Plan (1) Acute delirium: Code(s): R41.0 - Disorientation, unspecified Status: Acute (2) Dehydration: Code(s): E86.0 - Dehydration Status: Acute (3) High anion gap metabolic acidosis: Code(s): E87.29 - Other acidosis Status: Acute (4) Acute kidney injury: Code(s): N17.9 - Acute kidney failure, unspecified Status: Acute (5) Diarrhea: Code(s): R19.7 - Diarrhea, unspecified Status: Acute (6) Transaminitis: Code(s): R74.01 - Elevation of levels of liver transaminase levels Status: Acute (7) Dementia: Code(s): F03.90 - Unspecified dementia, unspecified severity, without behavioral disturbance, psychotic disturbance, mood disturbance, and anxiety Status: Acute (8) Hypothyroidism: Code(s): E03.9 - Hypothyroidism, unspecified Status: Acute (9) CAD (coronary artery disease): Qualifiers: Coronary Disease-Associated Artery/Lesion type: unspecified vessel or lesion type Code(s): I25.10 - Atherosclerotic heart disease of [place] coronary artery without angina pectoris Status: Acute (10) Atrial fibrillation: Code(s): I48.91 - Unspecified atrial fibrillation Status: Acute (11) Heart failure with preserved ejection fraction: Code(s): I50.30 - Unspecified diastolic (congestive) heart failure Status: Acute (12) HTN (hypertension): Code(s): I10 - Essential (primary) hypertension Status: Acute (13) Acute hyperkalemia: Code(s): E87.5 - Hyperkalemia Status: Acute Plan Patient is a 88-year-old female who presents to the emergency department this evening due to concern for altered mental status. Patient's daughter reported that since Sunday for the past 3 days patient has been having these intermittent episodes of agitation and seems to be a bit more altered. Daughter states that today was the worst episode of the past 3 days. Patient does have a history of chronic arthritis and does take hydrocodone daily. When EMS arrived, patient was minimally responsive and secondary to this patient was administered Narcan 1 mg. Upon arrival to our emergency department, patient appeared deliriious and agitated, moving all 4 extremities spontaneously, and continues to moan. Daughter states that this is likely secondary to the Narcan as she needs her narcotics to make it through her arthritis pain. Patient was also hypotensive. Patient had multiple episodes of diarrhea in the ED. iv fluid received in the ED. EKG with atrial fibrillation at the rate of 84. Laboratory evaluation revealed lactic acid of 5.1 potassium of 5.4 anion gap of 15 BUN 59 creatinine was 2.5 which is elevated from baseline of 1.1 transaminitis with AST of 565 ALT of 4 hallucis revealed no UTI. Blood pressure improved with resuscitation CT brain with no acute process. Chest x-ray with left lower lobe pneumonia IV antibiotics was started. CT abdomen pelvis revealed thickening of the rectum otherwise unremarkable. Patient nonverbal at baseline due to previous stroke. Altered mental status: Likely metabolic. CT is negative. PENNY with metabolic acidosis UTI new cirrhosis. Metabolic acidosis with lactic acidosis noted unclear source. Treat for possible pneumonia.Possible UTI. Possible colitis with diarrhea check C. difficile. General surgery Consulted. Unclear etiology for ongoing lactic acidosis treat dehydration and underlying and as ordered. Bicarb drip has been stopped bicarb slightly low today. Bacteremia Gram-positive cocci in clusters / suspect contamination. identifies that Staph capitis. Was started on vancomycin IV currently on vancomycin for urine Enterococcus. Acute kidney injury On chronic kidney disease stage III Treated with IV fluids. Renal consultation. No Hydronephrosis seen on CT. Urinary retention noted and Gilbert placed. CK mildly elevated at 150. Creatinine Continues to improve slowly. Urine culture grew Enterococcus UTI with Enterococcus currently on vancomycin IV Urine culture with 50-100 K Enterococcus sensitive to vanc has penicillin allergy. Can be changed to Unasyn if she has received amoxicillin the past. Pulmonary edema noted on chest x-ray 05/05/2024 will stop IV fluids and give a dose of Lasix. Renal function continues to improve Recent stercoral colitis AFib with RVR 05/04/2024:on diltiazem drip. History of AFib in the past and on anticoagulation with apixaban which are on hold due to NPO status. Hypothermia was on Daniel Hugger normalized overnight 05/04 dip down to 95.4. Received a dose of hydrocortisone IV. Will check cortisol level eelvated lvier enzymes: unclear etiology. us liver with findings of cirrhosis of liver. Newly diagnosed cirrhosis of liver lab negative for hepatitis viral panel History of heart failure with preserved ejection fraction Cautious IV hydration. History of stroke 2019 nonverbal status per record CT head with marked chronic ischemic changes. Hypertension Hold blood pressure medication to borderline blood pressure Coronary artery disease HypothyroidismTSH was elevated at 47 normal free T4. Continue home doses currently on hold due to NPO DVT prophylaxis eliquis to be continued Dysphagia: New versus acute on chronic. MBS reviewed. Repeat MBS at some point however long-term weiner he might have underlying dysphagia that will require since a G-tube placement. Ongoing continued treatment versus comfort measures/ hospice involvement discussed with patient family. Will continue to discuss. Family to discuss amongst each other. May try NG tube nutrition for few days to see how she progresses. Given the fact that she was back to her normal baseline over the weekend CODE STATUS do not resuscitate Subjective Date/time seen: 05/05/24 09:26 Interval history: overnight she is more confused. Chest x-ray reviewed. Patient has failed swallow evaluation. Currently NPO. Discussed with the family regarding long-term plan Review of Systems Review of Systems: ROS unobtainable: Yes unobtainable due to medical condition Exam Narrative: HEENT: PERRL, sclerae nonicteric, mildly tachypneic NECK: No JVD CHEST: coarse breath sound bilateral rhonchi HEART: mildly tachycardic S1/S2, irregular, no audible murmur. ABDOMEN: BS+, soft, nontender, no mass, no bruits EXTREMITIES: No cyanosis, or clubbing upper extremity and lower extremity mildly edematous NEUROLOGIC: CN intact and symmetric to inspection. Speech unintelligible. MUSCULOSKELETAL: Tone and strength symmetric. Tone and strength symmetric, Babinski negative. PSYCH: lethargic restless. Does not follow commands but makes eye contact. Objective Data Vital Signs Vital Signs: Vital Signs - 24 hr 05/04/24 10:05/04/24 12:00 05/04/24 12:06 Temperature Pulse Rate 129 H 103 H Respiratory Rate Blood Pressure 114/82 Pulse Oximetry 94 Oxygen Delivery Nasal Cannula Oxygen Flow Rate 2 05/04/24 10:00 05/04/24 12:00 05/04/24 12:00 Temperature 97.2 F L Pulse Rate 99 81 107 H Respiratory Rate 18 Blood Pressure 119/80 Pulse Oximetry 100 Oxygen Delivery Oxygen Flow Rate 05/04/24 16:00 05/04/24 14:00 05/04/24 16:00 Temperature 98.2 F Pulse Rate 90 92 94 Respiratory Rate 22 H Blood Pressure 130/97 H Pulse Oximetry 99 Oxygen Delivery Oxygen Flow Rate 05/04/24 18:00 05/04/24 18:35 05/04/24 14:00 Temperature Pulse Rate 85 100 Respiratory Rate Blood Pressure 126/88 Pulse Oximetry Oxygen Delivery Oxygen Flow Rate 05/04/24 16:00 05/04/24 18:00 05/04/24 16:00 Temperature Pulse Rate 100 95 Respiratory Rate Blood Pressure Pulse Oximetry 94 Oxygen Delivery Nasal Cannula Oxygen Flow Rate 2 05/04/24 19:36 05/04/24 21:52 05/04/24 21:52 Temperature 96.0 F L Pulse Rate 105 H 104 H 104 H Respiratory Rate 16 Blood Pressure 108/65 Pulse Oximetry 99 Oxygen Delivery Oxygen Flow Rate 05/04/24 22:35 05/04/24 22:30 05/04/24 23:00 Temperature 95.4 F L 95.8 F L Pulse Rate 116 H 116 H 102 H Respiratory Rate 22 H 22 H Blood Pressure 138/85 138/85 128/74 Pulse Oximetry 95 94 Oxygen Delivery Oxygen Flow Rate 05/04/24 23:15 05/04/24 23:32 05/04/24 20:00 Temperature 95.8 F L 96.2 F L Pulse Rate 76 122 H Respiratory Rate 23 H Blood Pressure 123/80 Pulse Oximetry 95 95 Oxygen Delivery Oxygen Flow Rate 05/04/24 22:19 05/04/24 20:00 05/04/24 23:45 Temperature 96.1 F L Pulse Rate 99 99 115 H Respiratory Rate 16 28 H Blood Pressure Pulse Oximetry 99 93 Oxygen Delivery Nasal Cannula Oxygen Flow Rate 2 05/05/24 00:15 05/04/24 23:00 05/05/24 00:45 Temperature 96.4 F L Pulse Rate 115 H 89 Respiratory Rate Blood Pressure 128/74 146/77 H Pulse Oximetry Oxygen Delivery Oxygen Flow Rate 05/05/24 02:30 05/05/24 00:00 05/05/24 00:00 Temperature Pulse Rate 114 H 114 H 114 H Respiratory Rate 28 H Blood Pressure 129/67 Pulse Oximetry 93 Oxygen Delivery Nasal Cannula Oxygen Flow Rate 2 05/05/24 02:00 05/05/24 00:45 05/05/24 01:30 Temperature 96.1 F L 96.2 F L Pulse Rate 107 H Respiratory Rate Blood Pressure Pulse Oximetry Oxygen Delivery Oxygen Flow Rate 05/05/24 02:00 05/05/24 02:30 05/05/24 03:00 Temperature 96.4 F L 95.9 F L 96.3 F L Pulse Rate Respiratory Rate Blood Pressure Pulse Oximetry Oxygen Delivery Oxygen Flow Rate 05/05/24 03:30 05/05/24 03:57 05/05/24 04:00 Temperature 96.1 F L 97.4 F L Pulse Rate 114 H 104 H Respiratory Rate 28 H 22 H Blood Pressure 125/82 Pulse Oximetry 93 97 Oxygen Delivery Nasal Cannula Oxygen Flow Rate 2 05/05/24 04:00 05/05/24 05:00 05/05/24 04:00 Temperature 97.4 F L Pulse Rate 103 H 123 H Respiratory Rate Blood Pressure 125/82 Pulse Oximetry Oxygen Delivery Oxygen Flow Rate 05/05/24 05:30 05/05/24 06:00 05/05/24 06:10 Temperature 97.6 F 97.4 F L Pulse Rate 109 H Respiratory Rate Blood Pressure Pulse Oximetry Oxygen Delivery Oxygen Flow Rate 05/05/24 06:11 05/05/24 06:30 05/05/24 07:00 Temperature 97.4 F L 97.8 F Pulse Rate 109 H Respiratory Rate Blood Pressure 130/72 Pulse Oximetry Oxygen Delivery Oxygen Flow Rate 05/05/24 07:57 05/05/24 08:01 05/05/24 08:00 Temperature 97.8 F 97.3 F L Pulse Rate 98 Respiratory Rate 18 Blood Pressure 130/80 Pulse Oximetry 95 97 Oxygen Delivery Nasal Cannula Oxygen Flow Rate 2 Intake/Output Intake/Output: Intake & Output 05/02/24 05/03/24 05/04/24 05/05/24 23:59 23:59 23:59 23:59 Intake Total 2580 2240 1603.3 36.0 Output Total 444 638 2341 250 Balance 2330 1910 503.3 -214.0 Meds/Results Medications: Active Medications Generic Name Dose Route Start Last Admin Trade Name Freq PRN Reason Stop Dose Admin Apixaban 2.5 mg 05/01/24 09:00 05/04/24 09:28 Apixaban 2.5 Mg Tablet PO Not Given BID FAHAD Hydromorphone HCl 0.5 mg 05/03/24 16:58 05/03/24 18:16 Hydromorphone Hcl Inj (*Crx) 1 Mg/Ml Syr IV PUSH 0.5 mg Q6H PRN Administration Pain Rated 7-10 Cefepime HCl 1 gm in 50 mls @ 100 mls/hr 05/02/24 15:45 05/05/24 08:38 Maxipime 1 Gm/Ns 50 Ml IVPB 100 mls/hr Q12HR FAHAD Administration Metronidazole 500 mg in 100 mls @ 100 mls/hr 05/03/24 21:00 05/05/24 05:44 Flagyl 500 Mg/Iso Soln 100 Ml IVPB 100 mls/hr Q8HR FAHAD Administration Lactated Ringer's 1,000 mls @ 75 mls/hr 05/04/24 08:00 05/04/24 21:55 Lr - Lactated Ringers Iv IV CONT 75 mls/hr .[id number] FAHAD Administration Diltiazem HCl 100 mg in 100 mls @ 5 mls/hr 05/04/24 09:10 05/05/24 06:11 Cardizem 100 Mg/100 Ml IV CONT 5 mg/hr .Q20H FAHAD 5 mls/hr Infusion 5 MG/HR Vancomycin HCl 1,000 mg in 250 mls @ 250 mls/hr 05/05/24 19:00 Vancomycin 1,000 Mg/Ns 250 Ml IVPB 05/05/24 19:59 ONCE ONE Levothyroxine Sodium 150 mcg 05/04/24 06:30 05/04/24 05:13 Levothyroxine Sodium 150 Mcg Tablet PO Not Given DAILY@0630 [facility] Triamcinolone Acetonide 1 applic 05/01/24 09:00 05/05/24 08:39 Triamcinolone Acet 0.1% Cream 15 Gm Tube TOPICAL 1 applic BID FAHAD Administration Vancomycin HCl 1 each 05/02/24 07:43 Vancomycin For Acute Kidney Injury IVPB PRN PRN Vancomycin Protocol Radiology Results: ITS Impressions Abdomen/Pelvis CT 04/30/24 23:26 IMPRESSION: 1. Bilateral moderate pleural effusion with bilateral atelectatic changes. Cardiomegaly. 2. No evidence of obstruction. 3. Minimal fluid in the pelvis. 4. Thickened wall of the rectum. Clinical evaluation advised. Upper Quadrant Ultrasound 05/01/24 09:07 IMPRESSION: 1: Nodular liver surface, compatible with cirrhosis. Trace ascites. 2: Mild biliary dilatation. Renal Ultrasound 05/02/24 14:22 IMPRESSION: 1. Normal right kidney without hydronephrosis. The left kidney was unable to visualized but appears mildly atrophic with no hydronephrosis at the time of the prior CT on 04/30/2024. 2. Small left pleural effusion. Chest/Abdomen/Pelvis CT 05/02/24 23:59 IMPRESSION: CHEST: 1. Bilateral moderate pleural effusion with adjacent atelectasis. Atelectatic changes in the lingula and middle lobe. 2. Cardiomegaly. ABDOMEN/PELVIS: 1. Fluid in the pelvis with fat stranding of the mesentery inflammatory changes should be considered. 2. Edema in the subcutaneous tissues which may indicate volume overload. Shoulder X-Ray 05/03/24 15:55 IMPRESSION: No acute osseous abnormality right shoulder. 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 Consider MRI of the shoulder if there is concern for soft tissue internal derangement. Head CT 05/04/24 06:25 IMPRESSION: 1. 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 No acute intracranial process. 2. Age-related changes including moderate diffuse volume loss and moderate scattered white matter hypoattenuation consistent with chronic small vessel ischemic disease. Modified Barium Swallow 05/04/24 07:11 IMPRESSION: Pharyngeal dysphagia with laryngeal penetration without aspiration. Please correlate with speech pathologist findings and specific feeding recommendations. Chest X-Ray 05/05/24 08:31 IMPRESSION: Cardiomegaly with congestive elizabeth and bilateral perihilar and lower lobe opacification suggestive of pulmonary edema. Pneumonia is not excluded. Worsening compared to the previous study is seen. Labs Labs: Laboratory Results - last 24 hr 05/05/24 04:18 WBC 9.8 RBC 3.29 L Hgb 11.3 L Hct 35.6 L MCV 108.2 H MCH 34.3 H MCHC 31.7 L RDW 17.4 H Plt Count 140 L MPV 13.1 H % Immature Plt Fraction 11.5 H PT 25.2 H D INR 2.3 Sodium 143 Potassium 4.2 Chloride 111 H Carbon Dioxide 19 L Anion Gap 13 H BUN 56 H Creatinine 1.60 H Estim Creat Clear Calc 18 Estimated GFR 30 L Glucose 112 H Lactic Acid 2.0 Calcium 10.0 Phosphorus 3.0 Total Bilirubin 1.2 Direct Bilirubin 0.2 AST 312 H ALT 535 H Alkaline Phosphatase 125 Total Protein 6.0 L Albumin 3.6 Random Vancomycin 18.4
--- NOTE | 2024-05-05 09:42 | ECG_ITS ---
Test Date: 2024-05-05 11:24:42 Measurements Intervals [place] Rate: 116 P: 0 NM: 0 QRS: -11 QRSD: 121 T: 183 QT: 345 QTc: 479 Interpretive Statements ATRIAL FIBRILLATION WITH RAPID VENTRICULAR RESPONSE LEFT BUNDLE BRANCH BLOCK [120+ ms QRS DURATION, 80+ ms Q/S IN V1/V2, 85+ ms R IN I/aVL/V5/V6] ABNORMAL ECG Compared to ECG 04/30/2024 20:34:14 NO DIFFERENCE Electronically Signed On 05-05-2024 15:26:12 CDT by Nigel Shaw M.D.
[2024-05-05] MEDS: HYDROmorphone HCL INJ (*CRX) 1 MG/ML SYR 0.5 MG IV PUSH ×2 (10:58→17:49)
[2024-05-05] MEDS: FUROSEMIDE INJ 40 MG/4 ML VIAL IV PUSH (10:58)
[2024-05-05] MEDS: IPRATROPIUM 0.5 MG/ALBUTEROL SULFATE 2.5 MG AMPUL.NEB 3 ML INHALATION ×3 (11:20→20:20)
--- NOTE | 2024-05-05 13:57 | PM.PNNEP ---
Progress Note: A&P Assessment and Plan (1) Stage 3b chronic kidney disease: Code(s): N18.32 - Chronic kidney disease, stage 3b Status: Acute Assessment and Plan: The patient has chronic kidney disease. Most likely related to vascular disease and hypertension. Baseline creatinine seems to be 1.1-1.2. (2) Acute kidney injury: Code(s): N17.9 - Acute kidney failure, unspecified Status: Acute Assessment and Plan: The patient has a newly high creatinine. She appears dehydrated on exam. She is getting treated with IV fluids. Fractional excretion of urea showed dehydration. CK is normal On ultrasound, Right kidney shows no hydro. left kidney not visualized. The CT scan was viewed by the person who read the ultrasound and it showed NO hydro on the left kidney with a mildly small kidney. Since no hydro, urology consult canceled. The patient was not urinating. Now has a Gilbert Catheter in place. intake/ output was 1600 / 1100 she is getting IV fluids and antibiotics. Her creatinine is better having fallen from 1.9-1.6. Lactic acid is level is 2. Anion gap is up to 13. discussed with Dr Lieberman. (3) Pyuria: Code(s): R82.81 - Pyuria Status: Acute Assessment and Plan: Urine cultures are pending. She is on Cefepime and vancomycin. (4) HTN (hypertension): Code(s): I10 - Essential (primary) hypertension Status: Acute Assessment and Plan: blood pressure doing well at 112 to 130 (5) Acute hyperkalemia: Code(s): E87.5 - Hyperkalemia Status: Acute Assessment and Plan: resolved (6) Metabolic acidosis: Code(s): E87.20 - Acidosis, unspecified Status: Acute Assessment and Plan: resolved Plan Bicarbonate 19. Anion gap is a little high. Lactic acid is a little high as well. Subjective Date/time seen: 05/05/24 13:57 Interval history: patient was seen at 8:00 a.m. patient is a little more lethargic today. Discussed with nursing. Exam Narrative: WDWN in NAD skin no rash Or subcu nodules head ncat lungs clear bilaterally cor reg no rub or gallop abd BS+ nontender and soft ext no edema or cyanosis. Objective Data Vital Signs Vital Signs: Vital Signs - 24 hr 05/04/24 16:00 05/04/24 14:00 05/04/24 16:00 Temperature 98.2 F Pulse Rate 90 92 94 Respiratory Rate 22 H Blood Pressure 130/97 H Pulse Oximetry 99 Oxygen Delivery Oxygen Flow Rate 05/04/24 18:00 05/04/24 18:35 05/04/24 14:00 Temperature Pulse Rate 85 100 Respiratory Rate Blood Pressure 126/88 Pulse Oximetry Oxygen Delivery Oxygen Flow Rate 05/04/24 16:00 05/04/24 18:00 05/04/24 16:00 Temperature Pulse Rate 100 95 Respiratory Rate Blood Pressure Pulse Oximetry 94 Oxygen Delivery Nasal Cannula Oxygen Flow Rate 2 05/04/24 19:36 05/04/24 21:52 05/04/24 21:52 Temperature 96.0 F L Pulse Rate 105 H 104 H 104 H Respiratory Rate 16 Blood Pressure 108/65 Pulse Oximetry 99 Oxygen Delivery Oxygen Flow Rate 05/04/24 22:35 05/04/24 22:30 05/04/24 23:00 Temperature 95.4 F L 95.8 F L Pulse Rate 116 H 116 H 102 H Respiratory Rate 22 H 22 H Blood Pressure 138/85 138/85 128/74 Pulse Oximetry 95 94 Oxygen Delivery Oxygen Flow Rate 05/04/24 23:15 05/04/24 23:32 05/04/24 20:00 Temperature 95.8 F L 96.2 F L Pulse Rate 76 122 H Respiratory Rate 23 H Blood Pressure 123/80 Pulse Oximetry 95 95 Oxygen Delivery Oxygen Flow Rate 05/04/24 22:19 05/04/24 20:00 05/04/24 23:45 Temperature 96.1 F L Pulse Rate 99 99 115 H Respiratory Rate 16 28 H Blood Pressure Pulse Oximetry 99 93 Oxygen Delivery Nasal Cannula Oxygen Flow Rate 2 05/05/24 00:15 05/04/24 23:00 05/05/24 00:45 Temperature 96.4 F L Pulse Rate 115 H 89 Respiratory Rate Blood Pressure 128/74 146/77 H Pulse Oximetry Oxygen Delivery Oxygen Flow Rate 05/05/24 02:30 05/05/24 00:00 05/05/24 00:00 Temperature Pulse Rate 114 H 114 H 114 H Respiratory Rate 28 H Blood Pressure 129/67 Pulse Oximetry 93 Oxygen Delivery Nasal Cannula Oxygen Flow Rate 2 05/05/24 02:00 05/05/24 00:45 06/17/24 01:30 Temperature 96.1 F L 96.2 F L Pulse Rate 107 H Respiratory Rate Blood Pressure Pulse Oximetry Oxygen Delivery Oxygen Flow Rate 05/05/24 02:00 05/05/24 02:30 05/05/24 03:00 Temperature 96.4 F L 95.9 F L 96.3 F L Pulse Rate Respiratory Rate Blood Pressure Pulse Oximetry Oxygen Delivery Oxygen Flow Rate 05/05/24 03:30 05/05/24 03:57 05/05/24 04:00 Temperature 96.1 F L 97.4 F L Pulse Rate 114 H 104 H Respiratory Rate 28 H 22 H Blood Pressure 125/82 Pulse Oximetry 93 97 Oxygen Delivery Nasal Cannula Oxygen Flow Rate 2 05/05/24 04:00 05/05/24 05:00 05/05/24 04:00 Temperature 97.4 F L Pulse Rate 103 H 123 H Respiratory Rate Blood Pressure 125/82 Pulse Oximetry Oxygen Delivery Oxygen Flow Rate 05/05/24 05:30 05/05/24 06:00 05/05/24 06:10 Temperature 97.6 F 97.4 F L Pulse Rate 109 H Respiratory Rate Blood Pressure Pulse Oximetry Oxygen Delivery Oxygen Flow Rate 05/05/24 06:11 05/05/24 06:30 05/05/24 07:00 Temperature 97.4 F L 97.8 F Pulse Rate 109 H Respiratory Rate Blood Pressure 130/72 Pulse Oximetry Oxygen Delivery Oxygen Flow Rate 05/05/24 07:57 05/05/24 08:01 05/05/24 08:00 Temperature 97.8 F 97.3 F L Pulse Rate 98 Respiratory Rate 18 Blood Pressure 130/80 Pulse Oximetry 95 97 Oxygen Delivery Nasal Cannula Oxygen Flow Rate 2 05/05/24 08:00 05/05/24 10:07 05/05/24 11:20 Temperature Pulse Rate 98 112 H 116 H Respiratory Rate 18 Blood Pressure 130/80 130/87 Pulse Oximetry Oxygen Delivery Oxygen Flow Rate 05/05/24 11:20 05/05/24 08:00 05/05/24 10:00 Temperature Pulse Rate 108 H 113 H Respiratory Rate Blood Pressure Pulse Oximetry 95 Oxygen Delivery Nasal Cannula Oxygen Flow Rate 2 05/05/24 11:34 05/05/24 12:00 05/05/24 12:00 Temperature 97.8 F Pulse Rate 116 H 124 H Respiratory Rate 22 H Blood Pressure 112/87 Pulse Oximetry 96 96 Oxygen Delivery Nasal Cannula Oxygen Flow Rate 2 Intake/Output Intake/Output: Intake & Output 05/02/24 05/03/24 05/04/24 05/05/24 23:59 23:59 23:59 23:59 Intake Total 2580 2240 1603.3 1032.0 Output Total 404 559 7747 250 Balance 2330 1910 503.3 782.0 Meds/Results Medications: Active Medications Generic Name Dose Route Start Last Admin Trade Name Freq PRN Reason Stop Dose Admin Albuterol/Ipratropium 3 ml 05/05/24 10:46 05/05/24 11:20 Ipratropium 0.5 Mg/Albuterol Sulfate 2.5 Mg Ampul.Neb 3 Ml INHALATION 3 ml Q6HRT FAHAD Administration Apixaban 2.5 mg 05/01/24 09:00 05/04/24 09:28 Apixaban 2.5 Mg Tablet PO Not Given BID FAHAD Hydromorphone HCl 0.5 mg 05/03/24 16:58 05/05/24 10:58 Hydromorphone Hcl Inj (*Crx) 1 Mg/Ml Syr IV PUSH 0.5 mg Q6H PRN Administration Pain Rated 7-10 Cefepime HCl 1 gm in 50 mls @ 100 mls/hr 05/02/24 15:45 05/05/24 10:06 Maxipime 1 Gm/Ns 50 Ml IVPB Infused Q12HR FAHAD Infusion Metronidazole 500 mg in 100 mls @ 100 mls/hr 05/03/24 21:00 05/05/24 05:44 Flagyl 500 Mg/Iso Soln 100 Ml IVPB 100 mls/hr Q8HR FAHAD Administration Lactated Ringer's 1,000 mls @ 75 mls/hr 05/04/24 08:00 05/05/24 10:16 Lr - Lactated Ringers Iv IV CONT 0 mls/hr .[id number] FAHAD Infusion Diltiazem HCl 100 mg in 100 mls @ 5 mls/hr 05/04/24 09:10 05/05/24 10:07 Cardizem 100 Mg/100 Ml IV CONT 5 mg/hr .Q20H FAHAD 5 mls/hr Infusion 5 MG/HR Vancomycin HCl 1,000 mg in 250 mls @ 250 mls/hr 05/05/24 19:00 Vancomycin 1,000 Mg/Ns 250 Ml IVPB 05/05/24 19:59 ONCE ONE Levothyroxine Sodium 150 mcg 05/04/24 06:30 05/04/24 05:13 Levothyroxine Sodium 150 Mcg Tablet PO Not Given DAILY@0630 [facility] Triamcinolone Acetonide 1 applic 05/01/24 09:00 05/05/24 08:39 Triamcinolone Acet 0.1% Cream 15 Gm Tube TOPICAL 1 applic BID FAHAD Administration Vancomycin HCl 1 each 05/02/24 07:43 Vancomycin For Acute Kidney Injury IVPB PRN PRN Vancomycin Protocol Radiology Results: ITS Impressions Abdomen/Pelvis CT 04/30/24 23:26 IMPRESSION: 1. Bilateral moderate pleural effusion with bilateral atelectatic changes. Cardiomegaly. 2. No evidence of obstruction. 3. Minimal fluid in the pelvis. 4. Thickened wall of the rectum. Clinical evaluation advised. Upper Quadrant Ultrasound 05/01/24 09:07 IMPRESSION: 1: Nodular liver surface, compatible with cirrhosis. Trace ascites. 2: Mild biliary dilatation. Renal Ultrasound 05/02/24 14:22 IMPRESSION: 1. Normal right kidney without hydronephrosis. The left kidney was unable to visualized but appears mildly atrophic with no hydronephrosis at the time of the prior CT on 04/30/2024. 2. Small left pleural effusion. Chest/Abdomen/Pelvis CT 05/02/24 23:59 IMPRESSION: CHEST: 1. Bilateral moderate pleural effusion with adjacent atelectasis. Atelectatic changes in the lingula and middle lobe. 2. Cardiomegaly. ABDOMEN/PELVIS: 1. Fluid in the pelvis with fat stranding of the mesentery inflammatory changes should be considered. 2. Edema in the subcutaneous tissues which may indicate volume overload. Shoulder X-Ray 05/03/24 15:55 IMPRESSION: No acute osseous abnormality right shoulder. 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 Consider MRI of the shoulder if there is concern for soft tissue internal derangement. Head CT 05/04/24 06:25 IMPRESSION: 1. 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 No acute intracranial process. 2. Age-related changes including moderate diffuse volume loss and moderate scattered white matter hypoattenuation consistent with chronic small vessel ischemic disease. Modified Barium Swallow 05/04/24 07:11 IMPRESSION: Pharyngeal dysphagia with laryngeal penetration without aspiration. Please correlate with speech pathologist findings and specific feeding recommendations. Chest X-Ray 05/05/24 08:31 IMPRESSION: Cardiomegaly with congestive elizabeth and bilateral perihilar and lower lobe opacification suggestive of pulmonary edema. Pneumonia is not excluded. Worsening compared to the previous study is seen. Labs Labs: Laboratory Results - last 24 hr 05/05/24 04:18 WBC 9.8 RBC 3.29 L Hgb 11.3 L Hct 35.6 L MCV 108.2 H MCH 34.3 H MCHC 31.7 L RDW 17.4 H Plt Count 140 L MPV 13.1 H % Immature Plt Fraction 11.5 H PT 25.2 H D INR 2.3 Sodium 143 Potassium 4.2 Chloride 111 H Carbon Dioxide 19 L Anion Gap 13 H BUN 56 H Creatinine 1.60 H Estim Creat Clear Calc 18 Estimated GFR 30 L Glucose 112 H Lactic Acid 2.0 Calcium 10.0 Phosphorus 3.0 Total Bilirubin 1.2 Direct Bilirubin 0.2 AST 312 H ALT 535 H Alkaline Phosphatase 125 Total Protein 6.0 L Albumin 3.6 Random Vancomycin 18.4
[2024-05-05 16:33] LABS: Cortisol Baseline > 123.00 ug/dL
--- NOTE | 2024-05-05 16:42 | PC.NURSE ---
Dr. Lieberman notified of pt's pupils now unequal. Bothpupils are reactive and pt is more awake than this morning. No new orders at this time
[2024-05-05] MEDS: AMPICILLIN SULB 3 GM/NS 100 ML 3 GM/100 ML VIAL IVPB (17:49)
[2024-05-05] MEDS: dilTIAZem 100 MG/100 ML 100 MG/100 ML BAG 10 MG IV CONT (19:43)
[2024-05-05] MEDS: HEPARIN SODIUM 5,000 UNITS/ML VIAL 5000 UNITS SUB-Q (20:37)
[2024-05-06] VITALS (37 sets, daily range): BP systolic 90–125; BP diastolic 57–97; PULSE 69–130; RESP 18–23; TEMP 36–36.3; O2SAT 92–100; BMI 24.7
[2024-05-06] MEDS: IPRATROPIUM 0.5 MG/ALBUTEROL SULFATE 2.5 MG AMPUL.NEB 3 ML INHALATION ×4 (02:35→20:00)
[2024-05-06] MEDS: dilTIAZem 100 MG/100 ML 100 MG/100 ML BAG 15 MG IV CONT ×2 (03:08→09:44)
[2024-05-06 05:22] LABS: Basophils Percent Auto 0.1 % (0.2-1.2); Hematocrit 35.6 % (37.0-47.0); Hemoglobin 11.5 g/dL (12.0-15.0); Immature Granulocyte Absolute 0.05 K/mm3 (0.00-0.031); Immature Granulocyte Percent A 0.4 % (0-0.5); Lymphocytes Absolute Auto 0.18 K/mm3 (0.9-3.2); Lymphocytes Percent Auto 1.6 % (18.3-44.2); Mean Corpuscular HGB Conc 32.3 g/dl (32-36); Mean Corpuscular Hemoglobin 34.3 pg (26-34); Mean Corpuscular Volume 106.3 fl (80-100); Mean Platelet Volume 12.7 fl (7.4-10.4); Monocytes Absolute Auto 0.5 K/mm3 (0.1-0.6); Monocytes Percent Auto 4.8 % (2.6-8.5); Neutrophils Absolute Auto 10.5 K/mm3 (1.3-6.7); Neutrophils Percent Auto 93.1 % (45.5-73.1); Nucleated Red Blood Cells Perc 3.1 % (0.0-0.2); Platelet Count Result 144 k/mm3 (150-375); Red Blood Count 3.35 M/mm3 (4.2-5.4); Red Cell Distribution Width 17.4 % (11.5-14.5); White Blood Count 11.3 K/mm3 (4.5-10.0)
[2024-05-06 05:24] LABS: INR 1.9; Prothrombin Time 22.1 Seconds (11.1-14.7)
[2024-05-06 05:31] LABS: Alanine Aminotransferase 385 U/L (6-35); Albumin Level 3.5 g/dL (3.5-5.1); Alkaline Phosphatase 115 U/L (38-126); Anion Gap 12 mmol/L (4-12); Aspartate Amino Transferase 138 U/L (14-36); Bilirubin Direct 0.2 mg/dL (0-0.3); Bilirubin,Total 1.3 mg/dL (0.2-1.3); Blood Urea Nitrogen 61 mg/dL (7-17); Calcium 10.3 mg/dL (8.4-10.2); Carbon Dioxide 22 mmol/L (22-30); Chloride 113 mmol/L (98-107); Estimated CRCL calculation 16 ml/min; Estimated Glomerular Filt Rate 27; Glucose 119 mg/dL (65-110); Potassium 3.8 mmol/L (3.4-5.0); Sodium 147 mmol/L (137-145)
[2024-05-06] MEDS: AMPICILLIN SULB 3 GM/NS 100 ML 3 GM/100 ML VIAL IVPB ×2 (05:50→17:15)
[2024-05-06] MEDS: HYDROCORTISONE SODIUM SUCCINATE 100 MG/2 ML VIAL IV PUSH ×3 (05:52→21:38)
[2024-05-06 06:00] LABS: Anisocytosis 1+; Platelet Estimate Slightly Decreased (Adequate); Poikilocytosis 1+
[2024-05-06 06:01] LABS: Burr Cells 1+; Macrocytosis 1+ (NORMAL); Ovalocytes 1+; Schistocytes Rare
--- NOTE | 2024-05-06 07:30 | P.PNNP_ITS ---
Progress Note: A&P Assessment and Plan (1) Stage 3b chronic kidney disease: Code(s): N18.32 - Chronic kidney disease, stage 3b Status: Acute Assessment and Plan: The patient has chronic kidney disease. Most likely related to vascular disease and hypertension. Baseline creatinine seems to be 1.1-1.2. (2) Acute kidney injury: Code(s): N17.9 - Acute kidney failure, unspecified Status: Acute Assessment and Plan: The patient has a newly high creatinine. She appears dehydrated on exam. She is getting treated with IV fluids. Fractional excretion of urea showed dehydration. CK is normal On ultrasound, Right kidney shows no hydro. left kidney not visualized. The CT scan was viewed by the person who read the ultrasound and it showed NO hydro on the left kidney with a mildly small kidney. Since no hydro, urology consult canceled. The patient was not urinating. Now has a Gilbert Catheter in place. intake/ output was 1600 / 1100 IV fluids were held because of her respiratory issues. There is some question of whether she can handle swallowing. Even though she is not getting routine fluid, her I's and O's are positive about 1400 in and 750 out. I agree with holding off on diuretics. Her creatinine is bouncing around in the high 1s. (3) Pyuria: Code(s): R82.81 - Pyuria Status: Acute Assessment and Plan: Urine cultures Show Enterococcus. It is sensitive to the vancomycin. She is on Cefepime and vancomycin. (4) HTN (hypertension): Code(s): I10 - Essential (primary) hypertension Status: Acute Assessment and Plan: blood pressure doing well at 112 to 130 (5) Acute hyperkalemia: Code(s): E87.5 - Hyperkalemia Status: Acute Assessment and Plan: resolved (6) Metabolic acidosis: Code(s): E87.20 - Acidosis, unspecified Status: Acute Assessment and Plan: resolved Plan Bicarbonate 19. Anion gap is a little high. Lactic acid is a little high as well. Subjective Date/time seen: 05/06/24 07:30 Interval history: patient is more awake. She looks like she did a couple of days ago. Still has a coarse posterior pharyngeal secretions. She is smiling and a little more interactive but can not understand anything I say. She is aphasic. Exam Narrative: WDWN in NAD skin no rash Or subcu nodules head ncat lungs Mildly coarse upper airway noise. cor reg no rub or gallop abd BS+ nontender and soft ext no edema Objective Data Vital Signs Vital Signs: Vital Signs - 24 hr 05/05/24 07:57 05/05/24 08:01 05/05/24 08:00 Temperature 97.8 F 97.3 F L Pulse Rate 98 Respiratory Rate 18 Blood Pressure 130/80 Pulse Oximetry 95 97 Oxygen Delivery Nasal Cannula Oxygen Flow Rate 2 05/05/24 08:00 05/05/24 10:07 05/05/24 11:20 Temperature Pulse Rate 98 112 H 116 H Respiratory Rate 18 Blood Pressure 130/80 130/87 Pulse Oximetry Oxygen Delivery Oxygen Flow Rate 05/05/24 11:20 05/05/24 08:00 05/05/24 10:00 Temperature Pulse Rate 108 H 113 H Respiratory Rate Blood Pressure Pulse Oximetry 95 Oxygen Delivery Nasal Cannula Oxygen Flow Rate 2 05/05/24 11:34 05/05/24 12:00 05/05/24 12:00 Temperature 97.8 F Pulse Rate 116 H 124 H Respiratory Rate 22 H Blood Pressure 112/87 Pulse Oximetry 96 96 Oxygen Delivery Nasal Cannula Oxygen Flow Rate 2 05/05/24 12:05 05/05/24 14:00 05/05/24 14:00 Temperature Pulse Rate 124 H 100 100 Respiratory Rate Blood Pressure 112/87 125/89 Pulse Oximetry Oxygen Delivery Oxygen Flow Rate 05/05/24 15:02 05/05/24 15:11 05/05/24 15:42 Temperature 97 F L Pulse Rate 110 H 106 H 134 H Respiratory Rate 20 20 16 Blood Pressure 121/77 Pulse Oximetry 94 Oxygen Delivery Oxygen Flow Rate 05/05/24 15:52 05/05/24 16:00 05/05/24 16:00 Temperature Pulse Rate 136 H 129 H Respiratory Rate Blood Pressure 121/77 Pulse Oximetry 94 Oxygen Delivery Nasal Cannula Oxygen Flow Rate 2 05/05/24 17:53 05/05/24 18:00 05/05/24 19:41 Temperature 97.8 F Pulse Rate 116 H 107 H 129 H Respiratory Rate 20 Blood Pressure 122/69 124/83 Pulse Oximetry 96 Oxygen Delivery Oxygen Flow Rate 05/05/24 19:43 05/05/24 20:00 05/05/24 20:00 Temperature Pulse Rate 129 H 114 H 114 H Respiratory Rate 20 Blood Pressure 124/83 124/83 Pulse Oximetry 96 Oxygen Delivery Nasal Cannula Oxygen Flow Rate 2 05/05/24 20:20 05/05/24 20:30 05/05/24 20:00 Temperature Pulse Rate 106 H 108 H 114 H Respiratory Rate 18 18 Blood Pressure Pulse Oximetry Oxygen Delivery Oxygen Flow Rate 05/05/24 22:00 05/05/24 22:06 05/05/24 22:00 Temperature Pulse Rate 126 H 129 H 129 H Respiratory Rate 22 H Blood Pressure 115/95 H 115/95 H Pulse Oximetry 96 Oxygen Delivery Oxygen Flow Rate 05/05/24 22:13 05/06/24 00:00 05/06/24 00:00 Temperature 97 F L Pulse Rate 135 H 69 118 H Respiratory Rate 22 H Blood Pressure 115/95 H 110/84 110/84 Pulse Oximetry 93 Oxygen Delivery Oxygen Flow Rate 05/06/24 00:54 05/06/24 00:54 05/06/24 01:55 Temperature 97.0 F L Pulse Rate 116 H 118 H 110 H Respiratory Rate 22 H Blood Pressure 124/76 Pulse Oximetry 93 96 Oxygen Delivery Nasal Cannula Oxygen Flow Rate 2 05/06/24 02:00 05/06/24 02:00 05/06/24 03:08 Temperature Pulse Rate 106 H 104 H 94 Respiratory Rate Blood Pressure 124/76 115/78 Pulse Oximetry Oxygen Delivery Oxygen Flow Rate 05/06/24 03:08 05/06/24 02:35 05/06/24 02:45 Temperature Pulse Rate 94 102 H 104 H Respiratory Rate 20 20 Blood Pressure 115/78 Pulse Oximetry Oxygen Delivery Oxygen Flow Rate 05/06/24 04:05 05/06/24 04:00 05/06/24 04:00 Temperature 97.3 F L Pulse Rate 94 117 H 101 H Respiratory Rate 20 20 Blood Pressure 104/57 L 102/57 L Pulse Oximetry 96 98 Oxygen Delivery Nasal Cannula Oxygen Flow Rate 2 05/06/24 04:00 05/06/24 06:00 05/06/24 06:00 Temperature 96.8 F L Pulse Rate 120 H 110 H 123 H Respiratory Rate 22 H Blood Pressure 125/65 Pulse Oximetry 96 Oxygen Delivery Oxygen Flow Rate Intake/Output Intake/Output: Intake & Output 05/03/24 05/04/24 05/05/24 05/06/24 23:59 23:59 23:59 23:59 Intake Total 2240 1603.3 1395.6 186.7 Output Total 330 1100 750 275 Balance 1910 503.3 645.6 -88.3 Meds/Results Medications: Active Medications Generic Name Dose Route Start Last Admin Trade Name Freq PRN Reason Stop Dose Admin Albuterol/Ipratropium 3 ml 05/05/24 10:46 05/06/24 02:35 Ipratropium 0.5 Mg/Albuterol Sulfate 2.5 Mg Ampul.Neb 3 Ml INHALATION 3 ml Q6HRT FAHAD Administration Apixaban 2.5 mg 05/01/24 09:00 05/04/24 09:28 Apixaban 2.5 Mg Tablet PO Not Given BID FAHAD Heparin Sodium (Porcine) 5,000 units 05/05/24 21:00 05/05/24 20:37 Heparin Sodium 5,000 Units/Ml Vial SUB-Q 5,000 units Q12HR FAHAD Administration Hydrocortisone Sodium Succinate 100 mg 05/05/24 14:00 05/06/24 05:52 Hydrocortisone Sodium Succinate 100 Mg/2 Ml Vial IV PUSH 100 mg Q8HR FAHAD Administration Hydromorphone HCl 0.5 mg 05/03/24 16:58 05/05/24 17:49 Hydromorphone Hcl Inj (*Crx) 1 Mg/Ml Syr IV PUSH 0.5 mg Q6H PRN Administration Pain Rated 7-10 Lactated Ringer's 1,000 mls @ 75 mls/hr 05/04/24 08:00 05/05/24 10:16 Lr - Lactated Ringers Iv IV CONT 0 mls/hr .[id number] FAHAD Infusion Diltiazem HCl 100 mg in 100 mls @ 15 mls/hr 05/04/24 09:10 05/06/24 04:00 Cardizem 100 Mg/100 Ml IV CONT 15 mg/hr .Q6H40M FAHAD 15 mls/hr Infusion 15 MG/HR Ampicillin Sodium/Sulbactam Sodium 3 gm in 100 mls @ 200 mls/hr 05/05/24 18:00 05/06/24 06:26 Unasyn 3 Gm/Ns 100 Ml IVPB Infused Q12H FAHAD Infusion Levothyroxine Sodium 150 mcg 05/04/24 06:30 05/04/24 05:13 Levothyroxine Sodium 150 Mcg Tablet PO Not Given DAILY@0630 [facility] Miconazole Nitrate 1 applic 05/05/24 21:00 05/05/24 20:37 Miconazole 2% Antifungal Ointment 56 Gm TOPICAL 1 applic Q12HR FAHAD Administration Triamcinolone Acetonide 1 applic 05/01/24 09:00 05/05/24 17:49 Triamcinolone Acet 0.1% Cream 15 Gm Tube TOPICAL 1 applic BID FAHAD Administration Radiology Results: ITS Impressions Abdomen/Pelvis CT 04/30/24 23:26 IMPRESSION: 1. Bilateral moderate pleural effusion with bilateral atelectatic changes. Cardiomegaly. 2. No evidence of obstruction. 3. Minimal fluid in the pelvis. 4. Thickened wall of the rectum. Clinical evaluation advised. Upper Quadrant Ultrasound 05/01/24 09:07 IMPRESSION: 1: Nodular liver surface, compatible with cirrhosis. Trace ascites. 2: Mild biliary dilatation. Renal Ultrasound 05/02/24 14:22 IMPRESSION: 1. Normal right kidney without hydronephrosis. The left kidney was unable to visualized but appears mildly atrophic with no hydronephrosis at the time of the prior CT on 04/30/2024. 2. Small left pleural effusion. Chest/Abdomen/Pelvis CT 05/02/24 23:59 IMPRESSION: CHEST: 1. Bilateral moderate pleural effusion with adjacent atelectasis. Atelectatic changes in the lingula and middle lobe. 2. Cardiomegaly. ABDOMEN/PELVIS: 1. Fluid in the pelvis with fat stranding of the mesentery inflammatory changes should be considered. 2. Edema in the subcutaneous tissues which may indicate volume overload. Shoulder X-Ray 05/03/24 15:55 IMPRESSION: No acute osseous abnormality right shoulder. 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 Consider MRI of the shoulder if there is concern for soft tissue internal derangement. Head CT 05/04/24 06:25 IMPRESSION: 1. 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 No acute intracranial process. 2. Age-related changes including moderate diffuse volume loss and moderate scattered white matter hypoattenuation consistent with chronic small vessel ischemic disease. Modified Barium Swallow 05/04/24 07:11 IMPRESSION: Pharyngeal dysphagia with laryngeal penetration without aspiration. Please correlate with speech pathologist findings and specific feeding recommendations. Chest X-Ray 05/05/24 08:31 IMPRESSION: Cardiomegaly with congestive elizabeth and bilateral perihilar and lower lobe opacification suggestive of pulmonary edema. Pneumonia is not excluded. Worsening compared to the previous study is seen. Labs Labs: Laboratory Results - last 24 hr 05/05/24 05/06/24 15:09 04:54 WBC 11.3 H RBC 3.35 L Hgb 11.5 L Hct 35.6 L MCV 106.3 H MCH 34.3 H MCHC 32.3 RDW 17.4 H Plt Count 144 L MPV 12.7 H Immature Gran % (Auto) 0.4 Neut % (Auto) 93.1 H Lymph % (Auto) 1.6 L Borden % (Auto) 4.8 Eos % (Auto) 0.0 Baso % (Auto) 0.1 L Lymph # (Auto) 0.18 L Borden # (Auto) 0.5 Eos # (Auto) 0.0 Baso # (Auto) 0.0 Abs Immat Gran (auto) 0.05 H Absolute Neuts (auto) 10.5 H Absolute Nucleated RBC 0.350 H Nucleated RBC % 3.1 H Platelet Estimate Slightly decreased Poikilocytosis 1+ Anisocytosis 1+ Macrocytosis 1+ Ovalocytes 1+ Eli Cells 1+ Schistocytes Rare PT 22.1 H INR 1.9 Sodium 147 H Potassium 3.8 Chloride 113 H Carbon Dioxide 22 Anion Gap 12 BUN 61 H Creatinine 1.80 H Estim Creat Clear Calc 16 Estimated GFR 27 L Glucose 119 H Calcium 10.3 H Phosphorus 3.0 Magnesium 2.0 Total Bilirubin 1.3 Direct Bilirubin 0.2 Indirect Bilirubin 0.0 AST 138 H ALT 385 H Alkaline Phosphatase 115 Total Protein 6.0 L Albumin 3.5 Cortisol Baseline > 123.00
[2024-05-06] MEDS: TRIAMCINOLONE ACET 0.1% CREAM 15 GM TUBE 1 APPLIC TOPICAL ×2 (08:34→17:16)
[2024-05-06] MEDS: HEPARIN SODIUM 5,000 UNITS/ML VIAL 5000 UNITS SUB-Q ×2 (08:34→21:38)
[2024-05-06] MEDS: HYDROmorphone HCL INJ (*CRX) 1 MG/ML SYR 0.5 MG IV PUSH ×2 (09:45→17:20)
[2024-05-06] MEDS: DEXTROSE 5% 1,000 ML 1,000 ML 50 ML IV CONT (09:48)
[2024-05-06] MEDS: METOPROLOL TARTRATE INJ 5 MG/5 ML VIAL IV PUSH ×3 (09:48→21:38)
[2024-05-06 11:57] LABS: Glucose Point of Care 145 mg/dl (65-105)
--- NOTE | 2024-05-06 13:53 | PC.NURSE ---
Updated Dr. Lieberman with pt's decreasing BP. New order to stop Cardizem drip now, recheck BP in 1 hour and call MD with BP before giving 1500 dose of Lopressor.
--- NOTE | 2024-05-06 14:15 | PM.IMPN ---
Progress Note: A&P Assessment and Plan (1) Acute delirium: Code(s): R41.0 - Disorientation, unspecified Status: Acute (2) Dehydration: Code(s): E86.0 - Dehydration Status: Acute (3) High anion gap metabolic acidosis: Code(s): E87.29 - Other acidosis Status: Acute (4) Acute kidney injury: Code(s): N17.9 - Acute kidney failure, unspecified Status: Acute (5) Diarrhea: Code(s): R19.7 - Diarrhea, unspecified Status: Acute (6) Transaminitis: Code(s): R74.01 - Elevation of levels of liver transaminase levels Status: Acute (7) Dementia: Code(s): F03.90 - Unspecified dementia, unspecified severity, without behavioral disturbance, psychotic disturbance, mood disturbance, and anxiety Status: Acute (8) Hypothyroidism: Code(s): E03.9 - Hypothyroidism, unspecified Status: Acute (9) CAD (coronary artery disease): Qualifiers: Coronary Disease-Associated Artery/Lesion type: unspecified vessel or lesion type Code(s): I25.10 - Atherosclerotic heart disease of circle coronary artery without angina pectoris Status: Acute (10) Atrial fibrillation: Code(s): I48.91 - Unspecified atrial fibrillation Status: Acute (11) Heart failure with preserved ejection fraction: Code(s): I50.30 - Unspecified diastolic (congestive) heart failure Status: Acute (12) HTN (hypertension): Code(s): I10 - Essential (primary) hypertension Status: Acute (13) Acute hyperkalemia: Code(s): E87.5 - Hyperkalemia Status: Acute Plan Patient is a 88-year-old female who presents to the emergency department this evening due to concern for altered mental status. Patient's daughter reported that since Sunday for the past 3 days patient has been having these intermittent episodes of agitation and seems to be a bit more altered. Daughter states that today was the worst episode of the past 3 days. Patient does have a history of chronic arthritis and does take hydrocodone daily. When EMS arrived, patient was minimally responsive and secondary to this patient was administered Narcan 1 mg. Upon arrival to our emergency department, patient appeared deliriious and agitated, moving all 4 extremities spontaneously, and continues to moan. Daughter states that this is likely secondary to the Narcan as she needs her narcotics to make it through her arthritis pain. Patient was also hypotensive. Patient had multiple episodes of diarrhea in the ED. iv fluid received in the ED. EKG with atrial fibrillation at the rate of 84. Laboratory evaluation revealed lactic acid of 5.1 potassium of 5.4 anion gap of 15 BUN 59 creatinine was 2.5 which is elevated from baseline of 1.1 transaminitis with AST of 565 ALT of 4 hallucis revealed no UTI. Blood pressure improved with resuscitation CT brain with no acute process. Chest x-ray with left lower lobe pneumonia IV antibiotics was started. CT abdomen pelvis revealed thickening of the rectum otherwise unremarkable. Patient nonverbal at baseline due to previous stroke. Altered mental status: Likely metabolic. CT is negative. PENNY with metabolic acidosis UTI new cirrhosis. pupil are unequal today will further evaluate with CT head 05/06/2024which came back negative. Will further do MRI brain Metabolic acidosis with lactic acidosis noted unclear source. Treat for possible pneumonia.Possible UTI. Possible colitis with diarrhea check C. difficile. General surgery Consulted. Unclear etiology for ongoing lactic acidosis treat dehydration and underlying and as ordered. Bicarb drip has been stopped now acidosis improved Bacteremia Gram-positive cocci in clusters 1/4 suspect contamination. identifies that Staph capitis. Was started on vancomycin IV currently on vancomycin for urine Enterococcus. vancomycin has been switched to Unasyn for Enterococcus in urine Acute kidney injury On chronic kidney disease stage III Treated with IV fluids. Renal consultation. No Hydronephrosis seen on CT. Urinary retention noted and Gilbert placed. CK mildly elevated at 150. Creatinine stable UTI with Enterococcus currently on vancomycin IV Urine culture with 50-100 K Enterococcus sensitive to vanc has penicillin allergy. Can be changed to Unasyn if she has received amoxicillin the past.She has received amoxicillin in the past and hence antibiotic tapered to Unasyn Pulmonary edema noted on chest x-ray 05/05/2024 will stop IV fluids and give a dose of Lasix05/05/2024. Renal function continues to improve chest x-ray fairly stable but respiratory exam improved. Recent stercoral colitis AFib with RVR 05/04/2024:on diltiazem drip. History of AFib in the past and on anticoagulation with apixaban which are on hold due to NPO status. Add metoprolol 5 q.6 and taper off diltiazem drip Hypothermia was on Daniel Hugger normalized overnight 05/04 dip down to 95.4. Received a dose of hydrocortisone IV. Added on hydrocortisone 100 q.8 temperature have stabilized. eelvated lvier enzymes: unclear etiology. us liver with findings of cirrhosis of liver. Newly diagnosed cirrhosis of liver lab negative for hepatitis viral panel History of heart failure with preserved ejection fraction Cautious IV hydration. History of stroke 2019 nonverbal status per record CT head with marked chronic ischemic changes. Hypertension Hold blood pressure medication to borderline blood pressure Coronary artery disease Hypothyroidism TSH was elevated at 47 normal free T4. Continue home doses currently on hold due to NPO . Change to IV levothyroxine DVT prophylaxis eliquis but on hold due to NPO status. Added on heparin subQ DVT prophylaxis does Dysphagia: New versus acute on chronic. MBS reviewed. Repeat MBS at some point however long-term weiner he might have underlying dysphagia that will require since a G-tube placement. Ongoing continued treatment versus comfort measures/ hospice involvement discussed with patient family. Will continue to discuss. Family to discuss amongst each other. May try NG tube nutrition for few days to see how she progresses. Given the fact that she was back to her normal baseline over the weekend. Re-evaluate MBS in 1-2 days. Family to decide long-term goal in next few days CODE STATUS do not resuscitate Subjective Date/time seen: 05/06/24 14:15 Interval history: Patient more alert today. Remains on diltiazem drip and needed to uptitrated to 15 milligram/hour. Right pupil dilated which was noted yesterday Review of Systems Review of Systems: ROS unobtainable: Yes unobtainable due to medical condition Exam Narrative: HEENT: PERRL, sclerae nonicteric, NECK: No JVD CHEST: diminished breath sound bilaterally no wheezes or rhonchi heard HEART: rate controlled AFib S1/S2, irregular, no audible murmur. ABDOMEN: BS+, soft, nontender, no mass, no bruits EXTREMITIES: No cyanosis, or clubbing upper extremity and lower extremity mildly edematous NEUROLOGIC: CN intact and symmetric to inspection. Speech unintelligible. MUSCULOSKELETAL: Tone and strength symmetric. Tone and strength symmetric, Babinski negative. PSYCH: more alert following commands. generalized weakness no focal deficit Objective Data Vital Signs Vital Signs: Vital Signs - 24 hr 05/05/24 15:02 05/05/24 15:11 05/05/24 15:42 Temperature 97 F L Pulse Rate 110 H 106 H 134 H Respiratory Rate 20 20 16 Blood Pressure 121/77 Pulse Oximetry 94 Oxygen Delivery Oxygen Flow Rate 05/05/24 15:52 05/05/24 16:00 05/05/24 16:00 Temperature Pulse Rate 136 H 129 H Respiratory Rate Blood Pressure 121/77 Pulse Oximetry 94 Oxygen Delivery Nasal Cannula Oxygen Flow Rate 2 05/05/24 17:53 05/05/24 18:00 05/05/24 19:41 Temperature 97.8 F Pulse Rate 116 H 107 H 129 H Respiratory Rate 20 Blood Pressure 122/69 124/83 Pulse Oximetry 96 Oxygen Delivery Oxygen Flow Rate 05/05/24 19:43 05/05/24 20:00 05/05/24 20:00 Temperature Pulse Rate 129 H 114 H 114 H Respiratory Rate 20 Blood Pressure 124/83 124/83 Pulse Oximetry 96 Oxygen Delivery Nasal Cannula Oxygen Flow Rate 2 05/05/24 20:20 05/05/24 20:30 05/05/24 20:00 Temperature Pulse Rate 106 H 108 H 114 H Respiratory Rate 18 18 Blood Pressure Pulse Oximetry Oxygen Delivery Oxygen Flow Rate 05/05/24 22:00 05/05/24 22:06 05/05/24 22:00 Temperature Pulse Rate 126 H 129 H 129 H Respiratory Rate 22 H Blood Pressure 115/95 H 115/95 H Pulse Oximetry 96 Oxygen Delivery Oxygen Flow Rate 05/05/24 22:13 05/06/24 00:00 05/06/24 00:00 Temperature 97 F L Pulse Rate 135 H 69 118 H Respiratory Rate 22 H Blood Pressure 115/95 H 110/84 110/84 Pulse Oximetry 93 Oxygen Delivery Oxygen Flow Rate 05/06/24 00:54 05/06/24 00:54 05/06/24 01:55 Temperature 97.0 F L Pulse Rate 116 H 118 H 110 H Respiratory Rate 22 H Blood Pressure 124/76 Pulse Oximetry 93 96 Oxygen Delivery Nasal Cannula Oxygen Flow Rate 2 05/06/24 02:00 05/06/24 02:00 05/06/24 03:08 Temperature Pulse Rate 106 H 104 H 94 Respiratory Rate Blood Pressure 124/76 115/78 Pulse Oximetry Oxygen Delivery Oxygen Flow Rate 05/06/24 03:08 05/06/24 02:35 05/06/24 02:45 Temperature Pulse Rate 94 102 H 104 H Respiratory Rate 20 20 Blood Pressure 115/78 Pulse Oximetry Oxygen Delivery Oxygen Flow Rate 05/06/24 04:05 05/06/24 04:00 05/06/24 04:00 Temperature 97.3 F L Pulse Rate 94 117 H 101 H Respiratory Rate 20 20 Blood Pressure 104/57 L 102/57 L Pulse Oximetry 96 98 Oxygen Delivery Nasal Cannula Oxygen Flow Rate 2 05/06/24 04:00 05/06/24 06:00 05/06/24 06:00 Temperature 96.8 F L Pulse Rate 120 H 110 H 123 H Respiratory Rate 22 H Blood Pressure 125/65 Pulse Oximetry 96 Oxygen Delivery Oxygen Flow Rate 05/06/24 07:53 05/06/24 07:05 05/06/24 07:05 Temperature 97 F L Pulse Rate 108 H 112 H 112 H Respiratory Rate 20 20 20 Blood Pressure 116/76 Pulse Oximetry 100 97 Oxygen Delivery Nasal Cannula Oxygen Flow Rate 2 05/06/24 07:15 05/06/24 08:04 05/06/24 09:44 Temperature Pulse Rate 109 H 108 H 108 H Respiratory Rate 20 Blood Pressure 116/76 125/87 Pulse Oximetry Oxygen Delivery Oxygen Flow Rate 05/06/24 09:44 05/06/24 09:48 05/06/24 08:00 Temperature Pulse Rate 108 H 110 H Respiratory Rate Blood Pressure 125/87 Pulse Oximetry 96 Oxygen Delivery Room Air Oxygen Flow Rate 05/06/24 10:54 05/06/24 11:39 05/06/24 12:05 Temperature 97.2 F L Pulse Rate 87 83 92 Respiratory Rate 23 H Blood Pressure 109/85 118/76 118/76 Pulse Oximetry 96 Oxygen Delivery Oxygen Flow Rate 05/06/24 12:00 05/06/24 13:00 05/06/24 13:10 Temperature Pulse Rate 104 H 103 H Respiratory Rate 18 20 Blood Pressure Pulse Oximetry 98 Oxygen Delivery Room Air Oxygen Flow Rate 05/06/24 13:50 Temperature Pulse Rate 90 Respiratory Rate Blood Pressure 90/65 L Pulse Oximetry Oxygen Delivery Oxygen Flow Rate Intake/Output Intake/Output: Intake & Output 05/03/24 05/04/24 05/05/24 05/06/24 23:59 23:59 23:59 23:59 Intake Total 2240 1603.3 1395.6 319.5 Output Total 330 1100 750 275 Balance 1910 503.3 645.6 44.5 Meds/Results Medications: Active Medications Generic Name Dose Route Start Last Admin Trade Name Freq PRN Reason Stop Dose Admin Albuterol/Ipratropium 3 ml 05/05/24 10:46 05/06/24 13:00 Ipratropium 0.5 Mg/Albuterol Sulfate 2.5 Mg Ampul.Neb 3 Ml INHALATION 3 ml Q6HRT FAHAD Administration Apixaban 2.5 mg 05/01/24 09:00 05/04/24 09:28 Apixaban 2.5 Mg Tablet PO Not Given BID FAHAD Dextrose 12.5 gm 05/06/24 10:44 Dextrose 50% 25 Gm/50 Ml Syringe IV PUSH PRN PRN Hypoglycemia Protocol Glucagon 1 mg 05/06/24 10:44 Glucagon For Inj 1 Mg Vial IM PRN PRN Hypoglycemia Protocol Glucose 15 gm 05/06/24 10:44 Glucose Oral Gel 15 Gm Of Glucse In 37.5 Gm Tube PO PRN PRN Hypoglycemia Protocol Heparin Sodium (Porcine) 5,000 units 05/05/24 21:00 05/06/24 08:34 Heparin Sodium 5,000 Units/Ml Vial SUB-Q 5,000 units Q12HR FAHAD Administration Hydrocortisone Sodium Succinate 100 mg 05/05/24 14:00 05/06/24 05:52 Hydrocortisone Sodium Succinate 100 Mg/2 Ml Vial IV PUSH 100 mg Q8HR FAHAD Administration Hydromorphone HCl 0.5 mg 05/03/24 16:58 05/06/24 09:45 Hydromorphone Hcl Inj (*Crx) 1 Mg/Ml Syr IV PUSH 0.5 mg Q6H PRN Administration Pain Rated 7-10 Lactated Ringer's 1,000 mls @ 75 mls/hr 05/04/24 08:00 05/05/24 10:16 Lr - Lactated Ringers Iv IV CONT 0 mls/hr .[id number] FAHAD Infusion Diltiazem HCl 100 mg in 100 mls @ 0 mls/hr 05/04/24 09:10 05/06/24 13:50 Cardizem 100 Mg/100 Ml IV CONT 0 mg/hr .Q0M FAHAD 0 mls/hr Infusion 0 MG/HR Ampicillin Sodium/Sulbactam Sodium 3 gm in 100 mls @ 200 mls/hr 05/05/24 18:00 05/06/24 06:26 Unasyn 3 Gm/Ns 100 Ml IVPB Infused Q12H FAHAD Infusion Dextrose 1,000 mls @ 50 mls/hr 05/06/24 09:10 05/06/24 09:48 Dextrose 5% 1,000 Ml IV CONT 50 mls/hr .Q20H FAHAD Administration Dextrose 1,000 mls @ 100 mls/hr 05/06/24 10:44 Dextrose 5% 1,000 Ml IVPB PRN PRN Hypoglycemia Protocol Insulin Aspart 2 - 5 units 05/06/24 12:00 05/06/24 11:58 Insulin Aspart (*Bkc) 100 Units/Ml SUB-Q Not Given Q6HR [facility] Protocol Levothyroxine Sodium 150 mcg 05/04/24 06:30 05/04/24 05:13 Levothyroxine Sodium 150 Mcg Tablet PO Not Given DAILY@0630 [facility] Levothyroxine Sodium 75 mcg 05/07/24 06:30 Levothyroxine Sodium Inj 100 Mcg/5 Ml Vial IV PUSH DAILY@0630 [facility] Metoprolol Tartrate 5 mg 05/06/24 09:05 05/06/24 09:48 Metoprolol Tartrate Inj 5 Mg/5 Ml Vial IV PUSH 5 mg Q6H FAHAD Administration Miconazole Nitrate 1 applic 05/05/24 21:00 05/06/24 08:34 Miconazole 2% Antifungal Ointment 56 Gm TOPICAL 1 applic Q12HR FAHAD Administration Triamcinolone Acetonide 1 applic 05/01/24 09:00 05/06/24 08:34 Triamcinolone Acet 0.1% Cream 15 Gm Tube TOPICAL 1 applic BID FAHAD Administration Radiology Results: ITS Impressions Abdomen/Pelvis CT 04/30/24 23:26 IMPRESSION: 1. Bilateral moderate pleural effusion with bilateral atelectatic changes. Cardiomegaly. 2. No evidence of obstruction. 3. Minimal fluid in the pelvis. 4. Thickened wall of the rectum. Clinical evaluation advised. Upper Quadrant Ultrasound 05/01/24 09:07 IMPRESSION: 1: Nodular liver surface, compatible with cirrhosis. Trace ascites. 2: Mild biliary dilatation. Renal Ultrasound 05/02/24 14:22 IMPRESSION: 1. Normal right kidney without hydronephrosis. The left kidney was unable to visualized but appears mildly atrophic with no hydronephrosis at the time of the prior CT on 04/30/2024. 2. Small left pleural effusion. Chest/Abdomen/Pelvis CT 05/02/24 23:59 IMPRESSION: CHEST: 1. Bilateral moderate pleural effusion with adjacent atelectasis. Atelectatic changes in the lingula and middle lobe. 2. Cardiomegaly. ABDOMEN/PELVIS: 1. Fluid in the pelvis with fat stranding of the mesentery inflammatory changes should be considered. 2. Edema in the subcutaneous tissues which may indicate volume overload. Shoulder X-Ray 05/03/24 15:55 IMPRESSION: No acute osseous abnormality right shoulder. 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 Consider MRI of the shoulder if there is concern for soft tissue internal derangement. Modified Barium Swallow 05/04/24 07:11 IMPRESSION: Pharyngeal dysphagia with laryngeal penetration without aspiration. Please correlate with speech pathologist findings and specific feeding recommendations. Chest X-Ray 05/06/24 10:39 IMPRESSION: 1. No significant change in small to moderate-sized bilateral pleural effusions with associated atelectasis and/or pneumonia in the lower lungs. 2. Cardiomegaly. Head CT 05/06/24 11:54 IMPRESSION: 1. 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 No acute intracranial process. 2. Age-related changes including moderate diffuse volume loss and moderate scattered white matter hypoattenuation consistent with chronic small vessel ischemic disease. Labs Labs: Laboratory Results - last 24 hr 05/05/24 05/06/24 05/06/24 15:09 04:54 11:41 WBC 11.3 H RBC 3.35 L Hgb 11.5 L Hct 35.6 L MCV 106.3 H MCH 34.3 H MCHC 32.3 RDW 17.4 H Plt Count 144 L MPV 12.7 H Immature Gran % (Auto) 0.4 Neut % (Auto) 93.1 H Lymph % (Auto) 1.6 L Glasscock % (Auto) 4.8 Eos % (Auto) 0.0 Baso % (Auto) 0.1 L Lymph # (Auto) 0.18 L Glasscock # (Auto) 0.5 Eos # (Auto) 0.0 Baso # (Auto) 0.0 Abs Immat Gran (auto) 0.05 H Absolute Neuts (auto) 10.5 H Absolute Nucleated RBC 0.350 H Nucleated RBC % 3.1 H Platelet Estimate Slightly decreased Poikilocytosis 1+ Anisocytosis 1+ Macrocytosis 1+ Ovalocytes 1+ De Leon Cells 1+ Schistocytes Rare PT 22.1 H INR 1.9 Sodium 147 H Potassium 3.8 Chloride 113 H Carbon Dioxide 22 Anion Gap 12 BUN 61 H Creatinine 1.80 H Estim Creat Clear Calc 16 Estimated GFR 27 L Glucose 119 H POC Capillary Glucose 145 H Calcium 10.3 H Phosphorus 3.0 Magnesium 2.0 Total Bilirubin 1.3 Direct Bilirubin 0.2 Indirect Bilirubin 0.0 AST 138 H ALT 385 H Alkaline Phosphatase 115 Total Protein 6.0 L Albumin 3.5 Cortisol Baseline > 123.00
[2024-05-06 17:33] LABS: Glucose Point of Care 166 mg/dl (65-105)
--- NOTE | 2024-05-06 17:48 | PC.NURSE ---
Updated Dr. Lieberman regarding bladder scan on pt reveling 13ml of urine. Catheter flushed with 30ml of NS, got 30ml back into catheter bag. New order to obtain BMP and call MD with results
[2024-05-06 18:55] LABS: Anion Gap 11 mmol/L (4-12); Blood Urea Nitrogen 63 mg/dL (7-17); Calcium 10.3 mg/dL (8.4-10.2); Carbon Dioxide 23 mmol/L (22-30); Chloride 113 mmol/L (98-107); Estimated CRCL calculation 16 ml/min; Estimated Glomerular Filt Rate 27; Glucose 142 mg/dL (65-110); Potassium 3.7 mmol/L (3.4-5.0); Sodium 147 mmol/L (137-145)
--- NOTE | 2024-05-06 18:59 | PC.NURSE ---
Updated Dr. Lieberman with BMP results. New order for 40mg IVP Lasix x1 now
[2024-05-06] MEDS: FUROSEMIDE INJ 40 MG/4 ML VIAL IV PUSH (19:03)
[2024-05-07] VITALS (22 sets, daily range): BP systolic 114–137; BP diastolic 80–102; PULSE 102–129; RESP 18–24; TEMP 33.1–36.4; O2SAT 95–100
[2024-05-07] MEDS: IPRATROPIUM 0.5 MG/ALBUTEROL SULFATE 2.5 MG AMPUL.NEB 3 ML INHALATION ×2 (02:09→08:21)
[2024-05-07] MEDS: METOPROLOL TARTRATE INJ 5 MG/5 ML VIAL IV PUSH ×2 (05:04→08:21)
[2024-05-07 05:13] LABS: Glucose Point of Care 141 mg/dl (65-105)
[2024-05-07] MEDS: HYDROCORTISONE SODIUM SUCCINATE 100 MG/2 ML VIAL IV PUSH (06:05)
[2024-05-07] MEDS: LEVOTHYROXINE SODIUM INJ 100 MCG/5 ML VIAL 75 MCG IV PUSH (06:05)
[2024-05-07] MEDS: AMPICILLIN SULB 3 GM/NS 100 ML 3 GM/100 ML VIAL IVPB (06:05)
[2024-05-07 06:40] LABS: Basophils Percent Auto 0.1 % (0.2-1.2); Hematocrit 39.1 % (37.0-47.0); Hemoglobin 12.3 g/dL (12.0-15.0); Immature Granulocyte Absolute 0.08 K/mm3 (0.00-0.031); Immature Granulocyte Percent A 0.5 % (0-0.5); Lymphocytes Absolute Auto 0.25 K/mm3 (0.9-3.2); Lymphocytes Percent Auto 1.6 % (18.3-44.2); Mean Corpuscular HGB Conc 31.5 g/dl (32-36); Mean Corpuscular Hemoglobin 34.6 pg (26-34); Mean Corpuscular Volume 109.8 fl (80-100); Mean Platelet Volume 12.9 fl (7.4-10.4); Monocytes Absolute Auto 1.5 K/mm3 (0.1-0.6); Monocytes Percent Auto 9.6 % (2.6-8.5); Neutrophils Absolute Auto 13.5 K/mm3 (1.3-6.7); Neutrophils Percent Auto 88.2 % (45.5-73.1); Nucleated Red Blood Cells Perc 3.5 % (0.0-0.2); Platelet Count Result 147 k/mm3 (150-375); Red Blood Count 3.56 M/mm3 (4.2-5.4); Red Cell Distribution Width 17.9 % (11.5-14.5); White Blood Count 15.3 K/mm3 (4.5-10.0)
[2024-05-07 06:57] LABS: Alanine Aminotransferase 288 U/L (6-35); Albumin Level 3.2 g/dL (3.5-5.1); Alkaline Phosphatase 81 U/L (38-126); Anion Gap 8 mmol/L (4-12); Aspartate Amino Transferase 80 U/L (14-36); Bilirubin,Total 1.2 mg/dL (0.2-1.3); Blood Urea Nitrogen 65 mg/dL (7-17); Calcium 9.9 mg/dL (8.4-10.2); Carbon Dioxide 22 mmol/L (22-30); Chloride 115 mmol/L (98-107); Estimated CRCL calculation 16 ml/min; Estimated Glomerular Filt Rate 27; Glucose 131 mg/dL (65-110); Magnesium 2.1 mg/dL (1.6-2.3); Phosphorus 3.2 mg/dL (2.5-4.5); Sodium 145 mmol/L (137-145)
[2024-05-07 07:13] LABS: Anisocytosis 2+; Macrocytosis 1+ (NORMAL); Platelet Estimate Slightly Decreased (Adequate)
[2024-05-07 07:15] LABS: Burr Cells 1+; Schistocytes Rare
[2024-05-07 07:16] LABS: Vancomycin Trough 12.4 ug/mL (10.0-20.0)
[2024-05-07 07:29] LABS: INR 1.7; Prothrombin Time 20.5 Seconds (11.1-14.7)
[2024-05-07] MEDS: DEXTROSE 5% 1,000 ML 1,000 ML 50 ML IV CONT (07:30)
[2024-05-07] MEDS: HYDROmorphone HCL INJ (*CRX) 1 MG/ML SYR 0.5 MG IV PUSH ×2 (08:21→14:26)
[2024-05-07] MEDS: HEPARIN SODIUM 5,000 UNITS/ML VIAL 5000 UNITS SUB-Q (08:21)
[2024-05-07] MEDS: TRIAMCINOLONE ACET 0.1% CREAM 15 GM TUBE 1 APPLIC TOPICAL (08:22)
--- NOTE | 2024-05-07 09:41 | PC.NURSE ---
Notified Dr. Jo of pt's rectal temp of 95.3. New order for amado hugger After RN returned with supplies to place pt on amado hugger. RN noticied pt having episodes of apnea. These episodes are lasting up to 30 seconds each time. notified
--- NOTE | 2024-05-07 10:54 | PM.EVENT ---
Event Note Event Note Event Note: nursing staff in with the patient. the patient has apneic spells. She is unresponsive. renal lab stable. She responded to Lasix last night. This is a courtesy visit. The patient looks comfortable. Her status is do not resuscitate. Nurse is contacting the hospitalist
--- NOTE | 2024-05-07 11:29 | PM.IMPN ---
Progress Note: A&P Assessment and Plan (1) Acute delirium: Code(s): R41.0 - Disorientation, unspecified Status: Acute (2) Dehydration: Code(s): E86.0 - Dehydration Status: Acute (3) High anion gap metabolic acidosis: Code(s): E87.29 - Other acidosis Status: Acute (4) Acute kidney injury: Code(s): N17.9 - Acute kidney failure, unspecified Status: Acute (5) Diarrhea: Code(s): R19.7 - Diarrhea, unspecified Status: Acute (6) Transaminitis: Code(s): R74.01 - Elevation of levels of liver transaminase levels Status: Acute (7) Dementia: Code(s): F03.90 - Unspecified dementia, unspecified severity, without behavioral disturbance, psychotic disturbance, mood disturbance, and anxiety Status: Acute (8) Hypothyroidism: Code(s): E03.9 - Hypothyroidism, unspecified Status: Acute (9) CAD (coronary artery disease): Qualifiers: Coronary Disease-Associated Artery/Lesion type: unspecified vessel or lesion type Code(s): I25.10 - Atherosclerotic heart disease of [place] coronary artery without angina pectoris Status: Acute (10) Atrial fibrillation: Code(s): I48.91 - Unspecified atrial fibrillation Status: Acute (11) Heart failure with preserved ejection fraction: Code(s): I50.30 - Unspecified diastolic (congestive) heart failure Status: Acute (12) HTN (hypertension): Code(s): I10 - Essential (primary) hypertension Status: Acute (13) Acute hyperkalemia: Code(s): E87.5 - Hyperkalemia Status: Acute Plan Patient is a 88-year-old female who presents to the emergency department this evening due to concern for altered mental status. Patient's daughter reported that since Sunday for the past 3 days patient has been having these intermittent episodes of agitation and seems to be a bit more altered. Daughter states that today was the worst episode of the past 3 days. Patient does have a history of chronic arthritis and does take hydrocodone daily. When EMS arrived, patient was minimally responsive and secondary to this patient was administered Narcan 1 mg. Upon arrival to our emergency department, patient appeared deliriious and agitated, moving all 4 extremities spontaneously, and continues to moan. Daughter states that this is likely secondary to the Narcan as she needs her narcotics to make it through her arthritis pain. Patient was also hypotensive. Patient had multiple episodes of diarrhea in the ED. iv fluid received in the ED. EKG with atrial fibrillation at the rate of 84. Laboratory evaluation revealed lactic acid of 5.1 potassium of 5.4 anion gap of 15 BUN 59 creatinine was 2.5 which is elevated from baseline of 1.1 transaminitis with AST of 565 ALT of 4 hallucis revealed no UTI. Blood pressure improved with resuscitation CT brain with no acute process. Chest x-ray with left lower lobe pneumonia IV antibiotics was started. CT abdomen pelvis revealed thickening of the rectum otherwise unremarkable. Patient nonverbal at baseline due to previous stroke. Altered mental status: Likely metabolic. CT is negative. PENNY with metabolic acidosis UTI new cirrhosis. pupil are unequal today will further evaluate with CT head 05/06/2024which came back negative. Will further do MRI brain Metabolic acidosis with lactic acidosis noted unclear source. Treat for possible pneumonia.Possible UTI. Possible colitis with diarrhea check C. difficile. General surgery Consulted. Unclear etiology for ongoing lactic acidosis treat dehydration and underlying and as ordered. Bicarb drip has been stopped now acidosis improved Bacteremia Gram-positive cocci in clusters 1/4 suspect contamination. identifies that Staph capitis. Was started on vancomycin IV currently on vancomycin for urine Enterococcus. vancomycin has been switched to Unasyn for Enterococcus in urine Acute kidney injury On chronic kidney disease stage III Treated with IV fluids. Renal consultation. No Hydronephrosis seen on CT. Urinary retention noted and Gilbert placed. CK mildly elevated at 150. Creatinine stable UTI with Enterococcus currently on vancomycin IV Urine culture with 50-100 K Enterococcus sensitive to vanc has penicillin allergy. Can be changed to Unasyn if she has received amoxicillin the past.She has received amoxicillin in the past and hence antibiotic tapered to Unasyn Pulmonary edema noted on chest x-ray 05/05/2024 will stop IV fluids and give a dose of Lasix05/05/2024. Renal function continues to improve chest x-ray fairly stable but respiratory exam improved. Recent stercoral colitis AFib with RVR 05/04/2024:on diltiazem drip. History of AFib in the past and on anticoagulation with apixaban which are on hold due to NPO status. Add metoprolol 5 q.6 and taper off diltiazem drip Hypothermia was on Daniel Hugger normalized overnight 05/04 dip down to 95.4. Received a dose of hydrocortisone IV. Added on hydrocortisone 100 q.8 temperature have stabilized. eelvated lvier enzymes: unclear etiology. us liver with findings of cirrhosis of liver. Newly diagnosed cirrhosis of liver lab negative for hepatitis viral panel History of heart failure with preserved ejection fraction Cautious IV hydration. History of stroke 2019 nonverbal status per record CT head with marked chronic ischemic changes. Hypertension Hold blood pressure medication to borderline blood pressure Coronary artery disease Hypothyroidism TSH was elevated at 47 normal free T4. Continue home doses currently on hold due to NPO . Change to IV levothyroxine DVT prophylaxis eliquis but on hold due to NPO status. Added on heparin subQ DVT prophylaxis does Dysphagia: New versus acute on chronic. MBS reviewed. Repeat MBS at some point however long-term weiner he might have underlying dysphagia that will require since a G-tube placement. Ongoing continued treatment versus comfort measures/ hospice involvement discussed with patient family. Will continue to discuss. Family to discuss amongst each other. May try NG tube nutrition for few days to see how she progresses. Given the fact that she was back to her normal baseline over the weekend. Re-evaluate MBS in 1-2 days. Family to decide long-term goal in next few days CODE STATUS do not resuscitate Subjective Date/time seen: 05/07/24 11:29 Interval history: 88yo female with AFib, dementia, CHF and HTN here for altered mental status. Assuming care. Chart reviewed. Patient is unresponsive and unabel to provide hx. SHe is having apnea and hypothermia. Family in the room updated. Review of Systems Review of Systems: ROS unobtainable: Yes unobtainable due to mental status Exam Narrative: AF 95.6 137/102 116 22 98% ra Gen - NARD, poorly responsive Chest - coarse BS anteriorly CV -irregularly irregular. Telemetry showing fibrillation Abd - Soft, ND -for secured with scant urine in the bag. Ext - No pedal edema Skin -multiple small dried eschars bilateral lower extremities Objective Data Vital Signs Vital Signs: Vital Signs - 24 hr 05/06/24 11:39 05/06/24 12:05 05/06/24 12:00 Temperature 97.2 F L Pulse Rate 83 92 Respiratory Rate 23 H Blood Pressure 118/76 118/76 Pulse Oximetry 96 98 Oxygen Delivery Room Air Fraction of Inspired Oxygen 05/06/24 13:00 05/06/24 13:10 05/06/24 13:50 Temperature Pulse Rate 104 H 103 H 90 Respiratory Rate 18 20 Blood Pressure 90/65 L Pulse Oximetry Oxygen Delivery Fraction of Inspired Oxygen 05/06/24 15:21 05/06/24 15:24 05/06/24 12:00 Temperature Pulse Rate 105 H 93 Respiratory Rate Blood Pressure 122/74 Pulse Oximetry Oxygen Delivery Fraction of Inspired Oxygen 05/06/24 14:00 05/06/24 16:00 05/06/24 16:00 Temperature 97.2 F L Pulse Rate 99 105 H Respiratory Rate 22 H Blood Pressure 123/58 L Pulse Oximetry 98 99 Oxygen Delivery Room Air Fraction of Inspired Oxygen 05/06/24 16:00 05/06/24 18:00 05/06/24 17:48 Temperature Pulse Rate 94 92 105 H Respiratory Rate Blood Pressure 123/58 L Pulse Oximetry Oxygen Delivery Fraction of Inspired Oxygen 05/06/24 20:02 05/06/24 20:08 05/06/24 20:00 Temperature 96.8 F L Pulse Rate 112 H 109 H Respiratory Rate 20 19 Blood Pressure 117/97 H Pulse Oximetry 92 92 Oxygen Delivery Room Air Fraction of Inspired Oxygen 05/06/24 20:00 05/06/24 20:00 05/06/24 21:38 Temperature Pulse Rate 112 H 95 130 H Respiratory Rate 20 Blood Pressure Pulse Oximetry 92 Oxygen Delivery Room Air Fraction of Inspired Oxygen 05/06/24 20:12 05/06/24 22:00 05/07/24 00:00 Temperature Pulse Rate 114 H 96 118 H Respiratory Rate 20 Blood Pressure Pulse Oximetry Oxygen Delivery Fraction of Inspired Oxygen 05/07/24 00:00 05/07/24 02:10 05/07/24 02:00 Temperature 96.4 F L Pulse Rate 102 H 104 H 108 H Respiratory Rate 22 H 18 Blood Pressure 125/87 Pulse Oximetry 95 Oxygen Delivery Fraction of Inspired Oxygen 05/07/24 00:00 05/07/24 04:00 05/07/24 04:00 Temperature 96.8 F L Pulse Rate 104 H 129 H 104 H Respiratory Rate 20 19 20 Blood Pressure 114/80 Pulse Oximetry 95 99 95 Oxygen Delivery Room Air Room Air Fraction of Inspired Oxygen 21 05/07/24 04:00 05/07/24 05:04 05/07/24 02:20 Temperature Pulse Rate 107 H 114 H 107 H Respiratory Rate 18 Blood Pressure Pulse Oximetry Oxygen Delivery Fraction of Inspired Oxygen 05/07/24 06:00 05/07/24 08:14 05/07/24 08:21 Temperature 96.1 F L Pulse Rate 106 H 110 H 126 H Respiratory Rate 24 H Blood Pressure 137/102 H Pulse Oximetry 100 Oxygen Delivery Fraction of Inspired Oxygen 05/07/24 08:00 05/07/24 08:24 05/07/24 08:24 Temperature Pulse Rate 119 H Respiratory Rate 22 H Blood Pressure Pulse Oximetry 100 98 Oxygen Delivery Room Air Room Air Fraction of Inspired Oxygen 05/07/24 08:30 05/07/24 09:41 05/07/24 09:43 Temperature 95.3 F L Pulse Rate 104 H Respiratory Rate 22 H Blood Pressure Pulse Oximetry Oxygen Delivery Room Air Fraction of Inspired Oxygen 05/07/24 09:59 05/07/24 10:15 05/07/24 10:30 Temperature 91.6 F L 94.9 F L 95.4 F L Pulse Rate Respiratory Rate Blood Pressure Pulse Oximetry Oxygen Delivery Fraction of Inspired Oxygen 05/07/24 10:45 05/07/24 11:00 Temperature 95.4 F L 95.6 F L Pulse Rate Respiratory Rate Blood Pressure Pulse Oximetry Oxygen Delivery Fraction of Inspired Oxygen Intake/Output Intake/Output: Intake & Output 05/04/24 05/05/24 05/06/24 05/07/24 23:59 23:59 23:59 23:59 Intake Total 1603.3 1395.6 420.2 1000 Output Total 1100 750 325 700 Balance 503.3 645.6 95.2 300 Meds/Results Medications: Active Medications Generic Name Dose Route Start Last Admin Trade Name Freq PRN Reason Stop Dose Admin Dextrose 12.5 gm 05/06/24 10:44 Dextrose 50% 25 Gm/50 Ml Syringe IV PUSH PRN PRN Hypoglycemia Protocol Glucagon 1 mg 05/06/24 10:44 Glucagon For Inj 1 Mg Vial IM PRN PRN Hypoglycemia Protocol Glucose 15 gm 05/06/24 10:44 Glucose Oral Gel 15 Gm Of Glucse In 37.5 Gm Tube PO PRN PRN Hypoglycemia Protocol Heparin Sodium (Porcine) 5,000 units 05/05/24 21:00 05/07/24 08:21 Heparin Sodium 5,000 Units/Ml Vial SUB-Q 5,000 units Q12HR FAHAD Administration Hydrocortisone Sodium Succinate 50 mg 05/07/24 14:00 Hydrocortisone Sodium Succinate 100 Mg/2 Ml Vial IV PUSH Q8HR FAHAD Hydromorphone HCl 0.5 mg 05/03/24 16:58 05/07/24 08:21 Hydromorphone Hcl Inj (*Crx) 1 Mg/Ml Syr IV PUSH 0.5 mg Q6H PRN Administration Pain Rated 7-10 Ampicillin Sodium/Sulbactam Sodium 3 gm in 100 mls @ 200 mls/hr 05/05/24 18:00 05/07/24 06:05 Unasyn 3 Gm/Ns 100 Ml IVPB 200 mls/hr Q12H FAHAD Administration Dextrose 1,000 mls @ 50 mls/hr 05/06/24 09:10 05/07/24 07:30 Dextrose 5% 1,000 Ml IV CONT 50 mls/hr .Q20H FAHAD Administration Dextrose 1,000 mls @ 100 mls/hr 05/06/24 10:44 Dextrose 5% 1,000 Ml IVPB PRN PRN Hypoglycemia Protocol Insulin Aspart 2 - 5 units 05/06/24 12:00 05/07/24 06:06 Insulin Aspart (*Bkc) 100 Units/Ml SUB-Q Not Given Q6HR COUNTS INCLUDE 234 BEDS AT THE [facility] Protocol Levothyroxine Sodium 75 mcg 05/07/24 06:30 05/07/24 06:05 Levothyroxine Sodium Inj 100 Mcg/5 Ml Vial IV PUSH 75 mcg DAILY@0630 FAHAD Administration Metoprolol Tartrate 5 mg 05/06/24 09:05 05/07/24 08:21 Metoprolol Tartrate Inj 5 Mg/5 Ml Vial IV PUSH 5 mg Q6H FAHAD Administration Miconazole Nitrate 1 applic 05/05/24 21:00 05/07/24 08:22 Miconazole 2% Antifungal Ointment 56 Gm TOPICAL 1 applic Q12HR FAHAD Administration Triamcinolone Acetonide 1 applic 05/01/24 09:00 05/07/24 08:22 Triamcinolone Acet 0.1% Cream 15 Gm Tube TOPICAL 1 applic BID FAHAD Administration Radiology Results: ITS Impressions Abdomen/Pelvis CT 04/30/24 23:26 IMPRESSION: 1. Bilateral moderate pleural effusion with bilateral atelectatic changes. Cardiomegaly. 2. No evidence of obstruction. 3. Minimal fluid in the pelvis. 4. Thickened wall of the rectum. Clinical evaluation advised. Upper Quadrant Ultrasound 05/01/24 09:07 IMPRESSION: 1: Nodular liver surface, compatible with cirrhosis. Trace ascites. 2: Mild biliary dilatation. Renal Ultrasound 05/02/24 14:22 IMPRESSION: 1. Normal right kidney without hydronephrosis. The left kidney was unable to visualized but appears mildly atrophic with no hydronephrosis at the time of the prior CT on 04/30/2024. 2. Small left pleural effusion. Chest/Abdomen/Pelvis CT 05/02/24 23:59 IMPRESSION: CHEST: 1. Bilateral moderate pleural effusion with adjacent atelectasis. Atelectatic changes in the lingula and middle lobe. 2. Cardiomegaly. ABDOMEN/PELVIS: 1. Fluid in the pelvis with fat stranding of the mesentery inflammatory changes should be considered. 2. Edema in the subcutaneous tissues which may indicate volume overload. Shoulder X-Ray 05/03/24 15:55 IMPRESSION: No acute osseous abnormality right shoulder. 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 Consider MRI of the shoulder if there is concern for soft tissue internal derangement. Modified Barium Swallow 05/04/24 07:11 IMPRESSION: Pharyngeal dysphagia with laryngeal penetration without aspiration. Please correlate with speech pathologist findings and specific feeding recommendations. Chest X-Ray 05/06/24 10:39 IMPRESSION: 1. No significant change in small to moderate-sized bilateral pleural effusions with associated atelectasis and/or pneumonia in the lower lungs. 2. Cardiomegaly. Head CT 05/06/24 11:54 IMPRESSION: 1. 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 No acute intracranial process. 2. Age-related changes including moderate diffuse volume loss and moderate scattered white matter hypoattenuation consistent with chronic small vessel ischemic disease. Labs Labs: Laboratory Results - last 24 hr 05/03/24 05/06/24 05/06/24 10:50 11:41 17:27 WBC RBC Hgb Hct MCV MCH MCHC RDW Plt Count MPV Immature Gran % (Auto) Neut % (Auto) Lymph % (Auto) [place] % (Auto) Eos % (Auto) Baso % (Auto) Lymph # (Auto) [place] # (Auto) Eos # (Auto) Baso # (Auto) Abs Immat Gran (auto) Absolute Neuts (auto) Absolute Nucleated RBC Nucleated RBC % Platelet Estimate Anisocytosis Macrocytosis Eli Cells Schistocytes PT INR Sodium Potassium Chloride Carbon Dioxide Anion Gap BUN Creatinine Estim Creat Clear Calc Estimated GFR Glucose POC Capillary Glucose 145 H 166 H Calcium Phosphorus Magnesium Total Bilirubin Direct Bilirubin AST ALT Alkaline Phosphatase Total Protein Albumin Vancomycin Trough Ref Lab Test Name Carb def transferrin Ref Lab Test Result See comment 05/06/24 05/07/24 05/07/24 18:32 00:54 06:34 WBC 15.3 H RBC 3.56 L Hgb 12.3 Hct 39.1 MCV 109.8 H MCH 34.6 H MCHC 31.5 L RDW 17.9 H Plt Count 147 L MPV 12.9 H Immature Gran % (Auto) 0.5 Neut % (Auto) 88.2 H Lymph % (Auto) 1.6 L [place] % (Auto) 9.6 H Eos % (Auto) 0.0 Baso % (Auto) 0.1 L Lymph # (Auto) 0.25 L [place] # (Auto) 1.5 H Eos # (Auto) 0.0 Baso # (Auto) 0.0 Abs Immat Gran (auto) 0.08 H Absolute Neuts (auto) 13.5 H Absolute Nucleated RBC 0.530 H Nucleated RBC % 3.5 H Platelet Estimate Slightly decreased Anisocytosis 2+ Macrocytosis 1+ Eli Cells 1+ Schistocytes Rare PT 20.5 H INR 1.7 Sodium 147 H 145 Potassium 3.7 4.0 Chloride 113 H 115 H Carbon Dioxide 23 22 Anion Gap 11 8 BUN 63 H 65 H Creatinine 1.80 H 1.80 H Estim Creat Clear Calc 16 16 Estimated GFR 27 L 27 L Glucose 142 H 131 H POC Capillary Glucose 141 H Calcium 10.3 H 9.9 Phosphorus 3.2 Magnesium 2.1 Total Bilirubin 1.2 Direct Bilirubin 0.0 AST 80 H ALT 288 H Alkaline Phosphatase 81 Total Protein 6.0 L Albumin 3.2 L Vancomycin Trough 12.4 Ref Lab Test Name Ref Lab Test Result
--- NOTE | 2024-05-07 15:02 | PM.DS ---
DS: Admitting Diagnosis Discharge Date 05/07/24 Admitting Diagnosis Altered mental status DS: Discharge Diagnosis Discharge Diagnosis (1) Acute delirium: Code(s): R41.0 - Disorientation, unspecified Status: Acute (2) Dehydration: Code(s): E86.0 - Dehydration Status: Acute (3) High anion gap metabolic acidosis: Code(s): E87.29 - Other acidosis Status: Acute (4) Acute kidney injury: Code(s): N17.9 - Acute kidney failure, unspecified Status: Acute (5) Diarrhea: Code(s): R19.7 - Diarrhea, unspecified Status: Acute (6) Transaminitis: Code(s): R74.01 - Elevation of levels of liver transaminase levels Status: Acute (7) Dementia: Code(s): F03.90 - Unspecified dementia, unspecified severity, without behavioral disturbance, psychotic disturbance, mood disturbance, and anxiety Status: Acute (8) Hypothyroidism: Code(s): E03.9 - Hypothyroidism, unspecified Status: Acute (9) CAD (coronary artery disease): Qualifiers: Coronary Disease-Associated Artery/Lesion type: unspecified vessel or lesion type Code(s): I25.10 - Atherosclerotic heart disease of [place] coronary artery without angina pectoris Status: Acute (10) Atrial fibrillation: Code(s): I48.91 - Unspecified atrial fibrillation Status: Acute (11) Heart failure with preserved ejection fraction: Code(s): I50.30 - Unspecified diastolic (congestive) heart failure Status: Acute (12) HTN (hypertension): Code(s): I10 - Essential (primary) hypertension Status: Acute (13) Acute hyperkalemia: Code(s): E87.5 - Hyperkalemia Status: Acute DS: Summary Hospital Course Reason for hospitalization: 88yo female presents with AMS. Please see H&P for details. Hospital Course: When EMS arrived, patient was minimally responsive. In the ED, patient appeared delirious and agitated. Patient was also hypotensive. Patient had multiple episodes of diarrhea in the ED. EKG with atrial fibrillation at the rate of 84. Laboratory evaluation revealed lactic acid of 5.1, potassium of 5.4, anion gap of 15, BUN 59, creatinine was 2.5 which is elevated from baseline of 1.1 and transaminitis. Blood pressure improved with fluid. resuscitation. CT brain with no acute process. Chest x-ray with left lower lobe pneumonia. IV antibiotics were started. CT abdomen pelvis revealed thickening of the rectum otherwise unremarkable. BCx in one set grew Staph capitis. Urine culture growing 50-100K colonies of enterococcus species. Antibiotics were adjusted. Developed acute kidney injury. She has underlying CKD. She has atrial fibrillation and developed RVR requiring diltiazem drip at 1 point. She developed hypothermia requiring Daniel Hugger. She was started on Solu-Cortef for severe sepsis. Hepatitis viral panel was negative. Cirrhosis noted on imaging. She is noted to have dysphagia as well and made NPO. Family did not want to proceed with feeding tube. Discussion with family about hospice care. They were agreeable and patient was transferred to hospice care on 05/07/2024. Status at Discharge Cognitive/behavioral status at discharge: Confused. critical Time Spent with Patient Time attestation: Total time spent providing and/or coordinating discharge services: 35 minuts Time spent: Greater than 30 minutes Exam Narrative: AF 95.6 137/102 116 22 98% ra Gen - NARD, poorly responsive Chest - coarse BS anteriorly CV -irregularly irregular. Telemetry showing fibrillation Abd - Soft, ND -for secured with scant urine in the bag. Ext - No pedal edema Skin -multiple small dried eschars bilateral lower extremities DS: Data Data Completed and Pending Labs on day of discharge: Labs from last 24 hours 05/07/24 05/07/24 05/06/24 06:34 00:54 18:32 WBC 15.3 H RBC 3.56 L Hgb 12.3 Hct 39.1 MCV 109.8 H MCH 34.6 H MCHC 31.5 L RDW 17.9 H Plt Count 147 L MPV 12.9 H Immature Gran % (Auto) 0.5 Neut % (Auto) 88.2 H Lymph % (Auto) 1.6 L [place] % (Auto) 9.6 H Eos % (Auto) 0.0 Baso % (Auto) 0.1 L Lymph # (Auto) 0.25 L [place] # (Auto) 1.5 H Eos # (Auto) 0.0 Baso # (Auto) 0.0 Abs Immat Gran (auto) 0.08 H Absolute Neuts (auto) 13.5 H Absolute Nucleated RBC 0.530 H Nucleated RBC % 3.5 H Platelet Estimate Slightly decreased Anisocytosis 2+ Macrocytosis 1+ Rinard Cells 1+ Schistocytes Rare PT 20.5 H INR 1.7 Sodium 145 147 H Potassium 4.0 3.7 Chloride 115 H 113 H Carbon Dioxide 22 23 Anion Gap 8 11 BUN 65 H 63 H Creatinine 1.80 H 1.80 H Estim Creat Clear Calc 16 16 Estimated GFR 27 L 27 L Glucose 131 H 142 H POC Capillary Glucose 141 H Calcium 9.9 10.3 H Phosphorus 3.2 Magnesium 2.1 Total Bilirubin 1.2 Direct Bilirubin 0.0 AST 80 H ALT 288 H Alkaline Phosphatase 81 Total Protein 6.0 L Albumin 3.2 L Vancomycin Trough 12.4 Ref Lab Test Name Ref Lab Test Result 05/06/24 05/03/24 17:27 10:50 WBC RBC Hgb Hct MCV MCH MCHC RDW Plt Count MPV Immature Gran % (Auto) Neut % (Auto) Lymph % (Auto) [place] % (Auto) Eos % (Auto) Baso % (Auto) Lymph # (Auto) [place] # (Auto) Eos # (Auto) Baso # (Auto) Abs Immat Gran (auto) Absolute Neuts (auto) Absolute Nucleated RBC Nucleated RBC % Platelet Estimate Anisocytosis Macrocytosis Rinard Cells Schistocytes PT INR Sodium Potassium Chloride Carbon Dioxide Anion Gap BUN Creatinine Estim Creat Clear Calc Estimated GFR Glucose POC Capillary Glucose 166 H Calcium Phosphorus Magnesium Total Bilirubin Direct Bilirubin AST ALT Alkaline Phosphatase Total Protein Albumin Vancomycin Trough Ref Lab Test Name Carb def transferrin Ref Lab Test Result See comment Discharge Plan Discharge Attending physician on discharge: Octavio Jo Consulting providers: Mateo Gore Discharging Clinician: Octavio Jo Anticipated Discharge Date/Time: 05/07/24 14:00 Patient Disposition: Hospice [facility] Inpatient Activity: as tolerated Diet: as tolerated Discharge Instructions: Hospice care Date of admission: 05/01/24 00:30 Primary Care Provider: Rhianna Duckworth Admitting Provider: Carla Naidu V. Attending physician on admission: Carla Naidu V. Condition: Terminal Hospitalist MIPS Heart Failure (Exclusion) Patient has history of Heart Transplant or Left Ventricular Assistive Device?: No IF YES, STOP HERE Heart Failure (Qualifier) Patient has current or prior documentation of LVEF less than or equal to 40%, or mod/servere depressed LVSF?: No IF NO, STOP HERE
[2024-05-09 22:54] LABS: Actin Antibody (IgG). <20 U (<20)
== END 2024-05-07 14:28 | disposition hospice, inpatient (51) | DRG 872 ==
LOC: ANHED 05-01 00:25 → ANH3MEDSUR 05-01 02:07 → ANHIMU 05-02 18:09
PROVIDERS: Internal Medicine; Internal Medicine Nephrology; Admitting Provider Internal Medicine; Emergency Provider Emergency Medicine; PCP Nurse Practitioner Family; Visit Provider Internal Medicine
DX: A41.1 Sepsis due to other specified staphylococcus (principal); N17.9 Acute kidney failure, unspecified; I13.0 Hypertensive heart and chronic kidney disease with heart failure and stage 1 through stage 4 chronic kidney disease, or unspecified chronic kidney disease; I50.32 Chronic diastolic (congestive) heart failure; N39.0 Urinary tract infection, site not specified; J90 Pleural effusion, not elsewhere classified; E87.29 Other acidosis; E87.20 Acidosis, unspecified; E86.0 Dehydration; R65.20 Severe sepsis without septic shock; I69.391 Dysphagia following cerebral infarction; I69.322 Dysarthria following cerebral infarction; Z51.5 Encounter for palliative care; B95.2 Enterococcus as the cause of diseases classified elsewhere; E87.5 Hyperkalemia; F03.90 Unspecified dementia, unspecified severity, without behavioral disturbance, psychotic disturbance, mood disturbance, and anxiety; E78.5 Hyperlipidemia, unspecified; E03.9 Hypothyroidism, unspecified; I25.10 Atherosclerotic heart disease of native coronary artery without angina pectoris; I48.91 Unspecified atrial fibrillation; K74.60 Unspecified cirrhosis of liver; K52.9 Noninfective gastroenteritis and colitis, unspecified; M19.90 Unspecified osteoarthritis, unspecified site; M79.621 Pain in right upper arm; N39.498 Other specified urinary incontinence; N18.32 Chronic kidney disease, stage 3b; R68.0 Hypothermia, not associated with low environmental temperature; Z88.0 Allergy status to penicillin; Z79.891 Long term (current) use of opiate analgesic; Z66 Do not resuscitate
CPT/HCPCS: 36415; 36600; 70450; 71045; 71250; 73030; 74176; 74230; 76705; 76775; 80048; 80053; 80069; 80076; 80202; 80307; 81001; 82140; 82248; 82533; 82550; 82565; 82570; 82607; 82728; 82746; 82805; 82948; 83540; 83550; 83605; 83735; 84100; 84145; 84156; 84300; 84439; 84443; 84480; 84540; 85025; 85027; 85046; 85055; 85610; 85730; 86140; 86364; 86704; 86709; 86803; 87040; 87077; 87086; 87088; 87181; 87340; 87641; 92611; 93005; 94640; 96361; 96365; 96366; 99285; A9270; J0295; J0612; J0650; J0692; J0696; J1171; J1644; J1720; J1815; J1836; J1940; J1956; J3370; J7030; J7070; J7120

== ENCOUNTER 2024-05-07 14:47 | HOS | payer OTHER, MEDICARE, SELFPAY ==
[2024-05-07 14:46] VITALS: BMI 24.7
[2024-05-07 15:08] VITALS: BP 132/111; PULSE 112; RESP 14; TEMP 35.9; O2SAT 91
[2024-05-07 15:31] VITALS: PULSE 91; RESP 16
[2024-05-07] MEDS: HYDROmorphone HCL/PF (*CRX) 50 MG in SODIUM CHLORIDE 0.9% IV 95 ML IV CONT (15:31)
--- NOTE | 2024-05-07 16:12 | PM.IMHP ---
H&P: HPI History of Present Illness Date/Time: 05/07/24 16:12 Chief Complaint: Uncontrolled pain Narrative: 88-year-old female with stroke 2019 which left her with dysphagia and expressive aphasia was brought to the emergency room May 01 due to 3 days of increasing confusion. She was hypotensive and poorly responsive when EMS arrived. She received Narcan. Since then she has been agitated. This has been in spite of receiving more opioids. She is chronically incontinent of urine. She was retaining 500 mL of urine and a Gilbert catheter was placed. She has a recent history of stroke oral colitis in March 2024. No history of drinking or smoking. No known history of cirrhosis. Known history of stage IIIA chronic kidney disease. History was obtained from chart and discussion with daughter at bedside. In spite of appropriate antibiotic therapy, warming for hypothermia, and fluid support she failed to improve. She continued to require low dose IV hydromorphone for chronic pain. She continued to be unable to eat (failed swallowing study). CT revealed no new stroke. Evaluation for infection revealed 50-100k col/ml enterococcus. Due to her baseline poor baseline functional status and dementia, her family opted against feeding tube and for symptom management on inpatient hospice service. Review of Systems Review of Systems: ROS unobtainable: Yes unobtainable due to medical condition PMFSH Past Medical History Medical History (Updated 05/07/24 @ 16:21 by Augusto Gurrola MD) Atrial fibrillation CAD (coronary artery disease) Chronic pain Cirrhosis of liver Dementia Dyslipidemia Eczematous dermatitis Heart failure with preserved ejection fraction HTN (hypertension) Hx of completed stroke with dysphagia and expressive aphasia Hypothyroidism Inflammatory arthritis Osteoarthritis Stage 3b chronic kidney disease Surgical History Surgical History History of hip replacement History of hysterectomy History of spinal surgery Family History Family History Father Hypertension Cerebrovascular accident Mother Hypertension Social History Social History (Updated 05/07/24 @ 16:19 by Augusto Gurrola MD) Social History: Code status DNR. Decision maker daughter, Mary Ann. Smoking status: Never smoker Alcohol intake: former Substance use: never Do You Feel Safe in your Home?: Yes Lack of Transportation: No Lack of Food: Never True Current Housing: I Have Housing Concerned About Future Housing: No Difficulty Paying Gas/Electric Bills: No Difficulty Paying for Meds: No Currently Unemployed: No Education: Master's Degree or Higher Difficulty w/ Childcare or Family Care: No Living arrangements: with family Gender identity (if verbalized by the patient): Female Sexual Orientation (if Verbalized by the Patient): Straight or Heterosexual Spiritual care concerns: No Meds Home Medications and Allergies Home Medications Medication Instructions Recorded Confirmed Type furosemide 20 mg tablet 20 mg PO QAM #90 tabs 03/15/24 05/01/24 Rx apixaban 2.5 mg tablet (Eliquis) 2.5 mg PO BID 04/05/24 05/01/24 History atorvastatin 40 mg tablet 40 mg PO DAILY 04/05/24 05/01/24 History docusate sodium 100 mg capsule 100 mg PO BID #60 caps 04/07/24 05/01/24 Rx (Colace) polyethylene glycol 3350 17 17 g PO BID #119 grams 04/07/24 05/01/24 Rx gram/dose oral powder (Miralax) sennosides 8.6 mg capsule (senna) 8.6 mg PO DAILY #30 caps 04/07/24 05/01/24 Rx metoprolol tartrate 75 mg tablet 75 mg PO BID #180 tabs 04/09/24 05/01/24 Rx levothyroxine 150 mcg tablet 150 mcg PO DAILY #90 tabs 04/10/24 05/01/24 Rx triamcinolone acetonide 0.1 % 1 applic topical BID #453.6 grams 04/14/24 05/01/24 Rx topical cream hydrocodone 10 mg-acetaminophen 1 tablet PO QID PRN pain #120 tabs 04/22/24 05/01/24 Rx 325 mg tabl
[2024-05-07] MEDS: diazePAM INJ (*CRX) 10 MG/2 ML SYRINGE 5 MG IV PUSH ×2 (16:57→22:57)
--- NOTE | 2024-05-07 17:18 | PC.NURSE ---
This patient, Esperanza Mark, was transferred to [[id number] ] on 05/07/24 at 1718. Personal belongings sent with patient. Report given to [TERENCE Allen @ [id number]]. Appropriate documentation sent with patient.
[2024-05-07 17:35] VITALS: BP 85/62; PULSE 129; RESP 28; TEMP 35.7; O2SAT 88
[2024-05-07 20:13] VITALS: BP 118/75; PULSE 87; RESP 18; TEMP 35.8; O2SAT 98
[2024-05-08] MEDS: diazePAM INJ (*CRX) 10 MG/2 ML SYRINGE 5 MG IV PUSH ×2 (09:17→15:03)
[2024-05-08] MEDS: HYDROmorphone HCL INJ (*CRX) 1 MG/ML SYR 0.5 MG IV PUSH ×3 (09:17→15:04)
[2024-05-08] MEDS: ARTIFICIAL TEARS OPHTH SOLN 15 ML BOTTLE 1 DROP EACH EYE (12:56)
[2024-05-08 14:00] VITALS: BP 130/98; PULSE 70; RESP 16; TEMP 36.1; O2SAT 92
[2024-05-08] MEDS: HYDROmorphone HCL/PF (*CRX) 50 MG in SODIUM CHLORIDE 0.9% IV 95 ML IV CONT (14:53)
--- NOTE | 2024-05-08 16:26 | PM.IMPN ---
Progress Note: A&P Assessment and Plan (1) Palliative care encounter: Code(s): Z51.5 - Encounter for palliative care Status: Acute Assessment and Plan: Meet inpatient hospice criteria due to required continuous IV hydromorphone for control of pain PRN needed palliative regimen ordered 05/08: increased hydromorphone drip and scheduled diazepam due to restlessness (2) UTI (urinary tract infection) due to Enterococcus: Code(s): N39.0 - Urinary tract infection, site not specified; B95.2 - Enterococcus as the cause of diseases classified elsewhere Status: Acute (3) Dementia: Code(s): F03.90 - Unspecified dementia, unspecified severity, without behavioral disturbance, psychotic disturbance, mood disturbance, and anxiety Status: Acute (4) Pleural effusion: Code(s): J90 - Pleural effusion, not elsewhere classified Status: Acute (5) Cirrhosis of liver: Code(s): K74.60 - Unspecified cirrhosis of liver Status: Acute (6) Hx of completed stroke: Code(s): Z86.73 - Personal history of transient ischemic attack (TIA), and cerebral infarction without residual deficits Status: Acute (7) Atrial fibrillation: Code(s): I48.91 - Unspecified atrial fibrillation Status: Acute (8) CAD (coronary artery disease): Qualifiers: Coronary Disease-Associated Artery/Lesion type: unspecified vessel or lesion type Code(s): I25.10 - Atherosclerotic heart disease of [place] coronary artery without angina pectoris Status: Acute (9) Heart failure with preserved ejection fraction: Code(s): I50.30 - Unspecified diastolic (congestive) heart failure Status: Acute (10) HTN (hypertension): Code(s): I10 - Essential (primary) hypertension Status: Acute (11) Hypothyroidism: Code(s): E03.9 - Hypothyroidism, unspecified Status: Acute (12) Stage 3b chronic kidney disease: Code(s): N18.32 - Chronic kidney disease, stage 3b Status: Acute (13) Osteoarthritis: Code(s): M19.90 - Unspecified osteoarthritis, unspecified site Status: Acute Subjective Date/time seen: 05/08/24 16:26 Interval history: Required extra bolus doses of hydromorphone due to pain, anxiety. Increased gurgling due to secretions. Review of Systems Review of Systems: ROS unobtainable: Yes unobtainable due to medical condition Exam Narrative: HEENT: PERRL, sclerae nonicteric, pharyngeal mucosa pink and intact NECK: No JVD CHEST: Clear to auscultation. Normal effort. HEART: NL S1/S2, irregular, no audible murmur. ABDOMEN: BS+, soft, nontender, no mass, no bruits EXTREMITIES: No cyanosis, edema, or clubbing NEUROLOGIC: CN intact and symmetric to inspection. Speech unintelligible. MUSCULOSKELETAL: Tone and strength symmetric. Babinski negative. PSYCH: Unresponsive to verbal or tactile stimuli. Objective Data Vital Signs Vital Signs: Vital Signs - 24 hr 05/07/24 17:35 05/07/24 20:13 05/08/24 08:00 Temperature 96.3 F L 96.4 F L Pulse Rate 129 H 87 Respiratory Rate 28 H 18 Blood Pressure 85/62 L 118/75 Pulse Oximetry 88 L 98 Oxygen Delivery Room Air 05/08/24 14:00 Temperature 97.0 F L Pulse Rate 70 Respiratory Rate 16 Blood Pressure 130/98 H Pulse Oximetry 92 Oxygen Delivery Intake/Output Intake/Output: Intake & Output 05/05/24 05/06/24 05/07/24 05/08/24 23:59 23:59 23:59 23:59 Intake Total 11.7 Output Total 200 Balance -188.3 Meds/Results Medications: Active Medications Generic Name Dose Route Start Last Admin Trade Name Freq PRN Reason Stop Dose Admin Acetaminophen 650 mg 05/07/24 15:06 Acetaminophen 650 Mg Suppository RECTAL Q4H PRN Fever Artificial Tears 1 drop 05/07/24 22:00 05/08/24 12:56 Artificial Tears Ophth Soln 15 Ml Bottle EACH EYE 1 drop Q8HR FAHAD Administration Artificial Tears 1 drop 05/07/24 15:07 Ar
[2024-05-08] MEDS: GLYCOPYRROLATE INJ (*SP) 0.2 MG/ML VIAL 0.1 MG IV PUSH (16:49)
--- NOTE | 2024-05-08 16:52 | PC.NURSE ---
Dilaudid gtt increased to 0.5mg/hour continuous. Rate change witnessed and verified by TERENCE Thomas
[2024-05-08 20:00] VITALS: PULSE 70; RESP 16; O2SAT 92
[2024-05-08 20:50] VITALS: BP 138/78; PULSE 120; RESP 12; TEMP 36; O2SAT 91
[2024-05-09 04:50] VITALS: BP 169/150; PULSE 93; RESP 12; TEMP 35.7; O2SAT 98
[2024-05-09] MEDS: GLYCOPYRROLATE INJ (*SP) 0.2 MG/ML VIAL 0.1 MG IV PUSH ×2 (05:34→21:02)
[2024-05-09] MEDS: ARTIFICIAL TEARS OPHTH SOLN 15 ML BOTTLE 1 DROP EACH EYE (05:36)
[2024-05-09 08:15] VITALS: BP 137/112; PULSE 77; RESP 8; TEMP 35.7; O2SAT 95
--- NOTE | 2024-05-09 11:25 | PM.IMPN ---
Progress Note: A&P Assessment and Plan (1) Palliative care encounter: Code(s): Z51.5 - Encounter for palliative care Status: Acute Assessment and Plan: Meet inpatient hospice criteria due to required continuous IV hydromorphone for control of pain PRN needed palliative regimen ordered 05/08: increased hydromorphone drip and scheduled diazepam due to restlessness (2) UTI (urinary tract infection) due to Enterococcus: Code(s): N39.0 - Urinary tract infection, site not specified; B95.2 - Enterococcus as the cause of diseases classified elsewhere Status: Acute (3) Dementia: Code(s): F03.90 - Unspecified dementia, unspecified severity, without behavioral disturbance, psychotic disturbance, mood disturbance, and anxiety Status: Acute (4) Pleural effusion: Code(s): J90 - Pleural effusion, not elsewhere classified Status: Acute (5) Cirrhosis of liver: Code(s): K74.60 - Unspecified cirrhosis of liver Status: Acute (6) Hx of completed stroke: Code(s): Z86.73 - Personal history of transient ischemic attack (TIA), and cerebral infarction without residual deficits Status: Acute (7) Atrial fibrillation: Code(s): I48.91 - Unspecified atrial fibrillation Status: Acute (8) CAD (coronary artery disease): Qualifiers: Coronary Disease-Associated Artery/Lesion type: unspecified vessel or lesion type Code(s): I25.10 - Atherosclerotic heart disease of [place] coronary artery without angina pectoris Status: Acute (9) Heart failure with preserved ejection fraction: Code(s): I50.30 - Unspecified diastolic (congestive) heart failure Status: Acute (10) HTN (hypertension): Code(s): I10 - Essential (primary) hypertension Status: Acute (11) Hypothyroidism: Code(s): E03.9 - Hypothyroidism, unspecified Status: Acute (12) Stage 3b chronic kidney disease: Code(s): N18.32 - Chronic kidney disease, stage 3b Status: Acute (13) Osteoarthritis: Code(s): M19.90 - Unspecified osteoarthritis, unspecified site Status: Acute Subjective Date/time seen: 05/09/24 11:25 Interval history: Remains comfortable since dose increase 05/08. Review of Systems Review of Systems: ROS unobtainable: Yes unobtainable due to medical condition Exam Narrative: HEENT: PERRL, sclerae nonicteric, pharyngeal mucosa pink and intact NECK: No JVD CHEST: Coarse BS. Normal effort. HEART: NL S1/S2, irregular, no audible murmur. ABDOMEN: BS+, soft, nontender, no mass, no bruits EXTREMITIES: No cyanosis, edema, or clubbing NEUROLOGIC: CN intact and symmetric to inspection. Speech unintelligible. MUSCULOSKELETAL: Tone and strength symmetric. Babinski negative. PSYCH: Unresponsive to verbal or tactile stimuli. Objective Data Vital Signs Vital Signs: Vital Signs - 24 hr 05/08/24 14:00 05/08/24 20:00 05/08/24 20:50 Temperature 97.0 F L 96.8 F L Pulse Rate 70 70 120 H Respiratory Rate 16 16 12 Blood Pressure 130/98 H 138/78 Pulse Oximetry 92 92 91 Oxygen Delivery Room Air 05/09/24 04:50 05/09/24 08:15 05/09/24 08:00 Temperature 96.3 F L 96.3 F L Pulse Rate 93 77 Respiratory Rate 12 8 L Blood Pressure 169/150 H 137/112 H Pulse Oximetry 98 95 Oxygen Delivery Room Air Intake/Output Intake/Output: Intake & Output 05/06/24 05/07/24 05/08/24 05/09/24 23:59 23:59 23:59 23:59 Intake Total 11.7 0 Output Total 400 250 Balance -388.3 -250 Meds/Results Medications: Active Medications Generic Name Dose Route Start Last Admin Trade Name Freq PRN Reason Stop Dose Admin Acetaminophen 650 mg 05/07/24 15:06 Acetaminophen 650 Mg Suppository RECTAL Q4H PRN Fever Artificial Tears 1 drop 05/07/24 22:00 05/09/24 05:36 Artificial Tears Ophth Soln 15 Ml Bottle EACH EYE 1 drop Q8HR FAHAD Administration Artificial Tears 1 drop
[2024-05-09] MEDS: HYDROmorphone HCL INJ (*CRX) 1 MG/ML SYR IV PUSH ×2 (13:39→21:01)
[2024-05-09] MEDS: HYDROmorphone HCL/PF (*CRX) 50 MG in SODIUM CHLORIDE 0.9% IV 95 ML IV CONT (15:23)
[2024-05-09 20:35] VITALS: BP 123/88; PULSE 82; RESP 24; TEMP 36.5; O2SAT 83
[2024-05-09] MEDS: diazePAM INJ (*CRX) 10 MG/2 ML SYRINGE 5 MG IV PUSH (21:02)
[2024-05-10] MEDS: ARTIFICIAL TEARS OPHTH SOLN 15 ML BOTTLE 1 DROP EACH EYE (05:45)
--- NOTE | 2024-05-10 11:10 | PC.NURSE ---
Patient 1110.
--- NOTE | 2024-05-12 15:33 | PM.DDS ---
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 Medications titrated to comfort. Mrs. Mark peacefully. Additional Data Confirmation of as documented by pronouncing clinician: Pupillary Reflex, Palpable Pulses, Response to Stimuli, Heart Tones and Breath Sounds Name of Provider Notified: Dr. Augusto Gurrola Time Provider Notified: 11:38 Provider Requests Autopsy: No Family Requests Autopsy: No Notch Grinder Notified: Yes Date [facility] Notified of : 05/10/24 Time [facility] Notified of : 11:34
== END 2024-05-10 11:10 | disposition expired | DRG 951 ==
LOC: ANHIMU 15:02 → ANH3MEDSUR 17:22
PROVIDERS: Admitting Provider Internal Medicine; PCP Nurse Practitioner Family; Visit Provider Internal Medicine
DX: Z51.5 Encounter for palliative care (principal); I13.0 Hypertensive heart and chronic kidney disease with heart failure and stage 1 through stage 4 chronic kidney disease, or unspecified chronic kidney disease; I50.32 Chronic diastolic (congestive) heart failure; I48.20 Chronic atrial fibrillation, unspecified; N39.0 Urinary tract infection, site not specified; I69.320 Aphasia following cerebral infarction; I69.391 Dysphagia following cerebral infarction; N18.32 Chronic kidney disease, stage 3b; I25.10 Atherosclerotic heart disease of native coronary artery without angina pectoris; K74.60 Unspecified cirrhosis of liver; F03.90 Unspecified dementia, unspecified severity, without behavioral disturbance, psychotic disturbance, mood disturbance, and anxiety
CPT/HCPCS: A9270; J1170; J1596; J3360